=== PATIENT | female | born 1965 | race Asian ===

== ENCOUNTER → 2019-12-25 | Day surgery (SDC) | payer OTHER ==
[~2019-12-25] MED LIST: ALPR0.5T PO; DULO30CA2 PO; IV RINGERS,LACTATED 1000ML 1,000 ML IV SCH; MELA1TAB9 PO; TAMO20TA PO; ZOLP3.5T2 SL
[2019-12-25 13:48] VITALS: BP 115/71
== END | disposition home or self-care (01) ==
LOC: ENDOS 12:25
PROVIDERS: ATTEND Internal Medicine Gastroenterology
DX: R13.10 Dysphagia, unspecified (principal); K22.2 Esophageal obstruction; K29.50 Unspecified chronic gastritis without bleeding; F41.9 Anxiety disorder, unspecified; K21.9 Gastro-esophageal reflux disease without esophagitis; F32.9 Major depressive disorder, single episode, unspecified; Z72.0 Tobacco use; Z85.3 Personal history of malignant neoplasm of breast
CPT/HCPCS: 43235; 43450

== ENCOUNTER → 2020-01-12 | Outpatient (CLI) | payer OTHER ==
[2019-12-25 13:48] VITALS: BP 115/71
[~2020-01-12] MED LIST changes: -IV RINGERS,LACTATED 1000ML 1,000 ML IV SCH
--- NOTE | 2020-01-12 13:04 | KCIC ---
EXAM: Dual energy x-ray absorptiometry (DEXA). HISTORY: Postmenopausal female presents for osteoporosis screening. COMPARISON: None. TECHNIQUE: Dual energy x-ray absorptiometry of the lumbar spine and left hip was performed. Calculation of bone mineral density based on standard deviations above or below the expected young adult normal value (T-score) was completed. FINDINGS: The average bone mineral density in the 1st through 4th lumbar vertebrae is 1.097 g/cmxcm, corresponding with a T-score of 0.5. The average total bone mineral density in the left is 0.792 g/cmxcm, corresponding with a T-score of -1.2. IMPRESSION: 1. Normal bone mineral density measured at the lumbar spine. 2. Osteopenia measured at the left hip. Note: Definitions established by the World Health Organization: 1. Normal: T-score is -1.0 or above. 2. Osteopenia: T-score is between -1.0 and -2.5 . 3. Osteoporosis: T-score is -2.5 or below. Electronically signed by: Bianca Flores MD (01/12/2020 1:00 PM) [id number]
== END | disposition home or self-care (01) ==
LOC: KCIC DEXA 11:10
PROVIDERS: ATTEND Internal Medicine Hematology & Oncology
DX: Z13.820 Encounter for screening for osteoporosis (principal); M85.88 Other specified disorders of bone density and structure, other site
CPT/HCPCS: 77080

== ENCOUNTER → 2020-01-27 | Outpatient (CLI) | payer OTHER ==
[2019-12-25 13:48] VITALS: BP 115/71
[~2020-01-27] VITALS: Ht 167.6 cm; Wt 62.6 kg
[2020-01-27] MEDS: SINCALIDE 1.25 MCG in IV NORMAL SALINE 50ML 30 ML IV ONE (12:26)
--- NOTE | 2020-01-27 12:59 | RAD ---
EXAM: Nuclear hepatobiliary scan. HISTORY: Epigastric pain. TECHNIQUE: Following intravenous administration of 5.5 mCi Tc 99m Choletec, anterior images of the abdomen were obtained at five minute intervals through one hour. Subsequently, 1.25 mcg CCK was administered and additional images to assess gallbladder ejection fraction were obtained. FINDINGS: There is prompt radiotracer uptake by the liver. No focal defect is seen. There is normal excretion into the biliary tree. The gallbladder is visualized within 20 minutes and there is free flow into the duodenum. The gallbladder ejection fraction is 49 percent. IMPRESSION: 1. Normal gallbladder ejection fraction. 2. Note is made that the patient reported subjective pain during medication administration for assessment of gallbladder contraction. Electronically signed by: Bianca Flores MD (01/27/2020 12:56 PM) [id number]
--- NOTE | 2020-01-27 14:43 | RAD ---
ABDOMEN LTD: 01/27/2020 10:00 AM Indication: 54 years old Female. Epigastric pain. Comparison: None. TECHNIQUE: Sonographic evaluation of the right upper quadrant was performed utilizing grayscale and color Doppler imaging. FINDINGS: Liver: Homogenous normal echotexture.. There is hepatopedal flow within the portal venous system. Right hepatic lobe measures 14.9 cm. Biliary system: CBD measures 8.4 mm. There is no intrahepatic or extrahepatic biliary dilatation. Gallbladder: No gallstones, wall thickening or pericholecystic fluid. . Sonographic Blanchard sign: Negative Pancreas: Visualized head and uncinate process are unremarkable. Body and tail are not visualized. Right kidney: 17.8 x 4.4 x 4.9 17.8 x 4.4 x 4.9 cm. No hydronephrosis. Normal echotexture without focal mass or renal calculus. Free fluid:None. Proximal aorta measures 2.3 cm mid aorta measures 2.2 cm. Distal aorta measures 1.17. IMPRESSION: No cholelithiasis. Prominent common bile duct measures up to 8.4 mm. Correlate with hepatobiliary enzymes and if elevated, MRCP may be of benefit. Electronically signed by: Abbi Garcia MD (01/27/2020 2:40 PM) [id number]
== END ==
LOC: US 09:30
PROVIDERS: ATTEND Internal Medicine Gastroenterology
DX: R10.13 Epigastric pain (principal)
CPT/HCPCS: 76705; 78227; A9537; J2805

== ENCOUNTER → 2020-03-30 | Outpatient (CLI) | payer OTHER ==
[2019-12-25 13:48] VITALS: BP 115/71
[2020-03-30 10:45] LABS: BASO % 1 % (0-3); EOS # 0.1 x10^3/uL (0.0-0.7); EOS % 3 % (0-3); HEMATOCRIT 39.2 % (36.0-47.0); HEMOGLOBIN 13.3 g/dL (12.0-15.5); LYMPH # 1.3 x10^3/uL (1.0-4.8); LYMPH % 40 % (24-48); MEAN CORPUSCULAR HEMOGLOBIN 30 pg (25-35); MEAN CORPUSCULAR HGB CONC 34 g/dL (31-37); MEAN CORPUSCULAR VOLUME 89 fL (79-100); MONO # 0.3 x10^3/uL (0.0-1.1); MONO % 10 % (0-9); NEUT # 1.5 x10^3/uL (1.8-7.7); NEUT % 46 % (31-73); PLATELET COUNT 196 x10^3/uL (140-400); RED BLOOD COUNT 4.38 x10^6/uL (3.50-5.40); RED CELL DISTRIBUTION WIDTH 12.2 % (11.5-14.5); WHITE BLOOD COUNT 3.3 x10^3/uL (4.0-11.0)
[2020-03-30 10:54] LABS: ALBUMIN 3.5 g/dL (3.4-5.0); CREATININE 0.5 mg/dL (0.6-1.0); GFR 129.6; POTASSIUM 4.4 mmol/L (3.5-5.1); TOTAL BILIRUBIN 0.3 mg/dL (0.2-1.0)
== END | disposition home or self-care (01) ==
LOC: LAB 10:18
PROVIDERS: ATTEND Internal Medicine Hematology & Oncology
DX: C50.311 Malignant neoplasm of lower-inner quadrant of right female breast (principal); Z17.0 Estrogen receptor positive status [ER+]
CPT/HCPCS: 36415; 80053; 85025

== ENCOUNTER → 2020-04-19 | Outpatient (CLI) | payer OTHER ==
[2019-12-25 13:48] VITALS: BP 115/71
[2020-04-19 12:34] LABS: ALBUMIN 3.9 g/dL (3.4-5.0); ALBUMIN/GLOBULIN RATIO 1.2 (1.0-1.7); CALCIUM 9.1 mg/dL (8.5-10.1); CREATININE 0.6 mg/dL (0.6-1.0); POTASSIUM 4.2 mmol/L (3.5-5.1); TOTAL BILIRUBIN 0.4 mg/dL (0.2-1.0); TOTAL PROTEIN 7.2 g/dL (6.4-8.2)
== END | disposition home or self-care (01) ==
LOC: LAB 11:25
DX: C50.311 Malignant neoplasm of lower-inner quadrant of right female breast (principal); Z17.0 Estrogen receptor positive status [ER+]
CPT/HCPCS: 36415; 80053

== ENCOUNTER → 2020-06-04 | Outpatient (CLI) | payer OTHER ==
[2019-12-25 13:48] VITALS: BP 115/71
--- NOTE | 2020-06-04 14:08 | KCIC ---
EXAM: AP and lateral views of the mandible DATE: 06/04/2020 12:00 AM CLINICAL INDICATION: Reason: LEFT JAW PAIN / Spl. Instructions: Chronic pain. / History: COMPARISON: None. FINDINGS: Temporomandibular joint spaces are intact. No erosive changes are identified. There is normal morphology of the glenoid fossa and the condyles. There is no acute fracture. Paranasal sinuses are aerated without fluid levels. Of note open and closed views were not obtained. IMPRESSION: No definite mandibular fractures identified. If there is persistent clinical concern for mandibular pathology, CT is recommended. Electronically signed by: Gildardo Cole MD (06/04/2020 2:05 PM) [id number]
== END | disposition home or self-care (01) ==
LOC: KCIC 09:20
PROVIDERS: ATTEND Family Medicine
DX: R68.84 Jaw pain (principal)
CPT/HCPCS: 70110

== ENCOUNTER → 2020-07-27 | Outpatient (CLI) | payer OTHER ==
[2019-12-25 13:48] VITALS: BP 115/71
[2020-07-27 10:36] LABS: BASO % 1 % (0-3); EOS # 0.1 x10^3/uL (0.0-0.7); EOS % 3 % (0-3); HEMATOCRIT 38.1 % (36.0-47.0); HEMOGLOBIN 13.3 g/dL (12.0-15.5); LYMPH # 1.2 x10^3/uL (1.0-4.8); LYMPH % 37 % (24-48); MEAN CORPUSCULAR HEMOGLOBIN 31 pg (25-35); MEAN CORPUSCULAR HGB CONC 35 g/dL (31-37); MEAN CORPUSCULAR VOLUME 88 fL (79-100); MONO # 0.3 x10^3/uL (0.0-1.1); MONO % 9 % (0-9); NEUT # 1.7 x10^3/uL (1.8-7.7); NEUT % 51 % (31-73); PLATELET COUNT 199 x10^3/uL (140-400); RED BLOOD COUNT 4.34 x10^6/uL (3.50-5.40); RED CELL DISTRIBUTION WIDTH 12.2 % (11.5-14.5); WHITE BLOOD COUNT 3.3 x10^3/uL (4.0-11.0)
[2020-07-27 11:02] LABS: ALBUMIN 3.8 g/dL (3.4-5.0); CALCIUM 9.2 mg/dL (8.5-10.1); CREATININE 0.6 mg/dL (0.6-1.0); POTASSIUM 4.2 mmol/L (3.5-5.1); TOTAL BILIRUBIN 0.5 mg/dL (0.2-1.0); TOTAL PROTEIN 7.6 g/dL (6.4-8.2)
== END | disposition home or self-care (01) ==
LOC: LAB 10:02
PROVIDERS: ATTEND Internal Medicine Hematology & Oncology
DX: C50.311 Malignant neoplasm of lower-inner quadrant of right female breast (principal); Z17.0 Estrogen receptor positive status [ER+]
CPT/HCPCS: 36415; 80053; 85025

== ENCOUNTER → 2020-07-30 | Outpatient (CLI) | payer OTHER ==
[2019-12-25 13:48] VITALS: BP 115/71
== END | disposition home or self-care (01) ==
LOC: ONCLAB 11:07
PROVIDERS: ATTEND Internal Medicine Hematology & Oncology
DX: C50.311 Malignant neoplasm of lower-inner quadrant of right female breast (principal)
CPT/HCPCS: 36415; 82670

== ENCOUNTER 2020-11-01 12:21 | Emergency (ER) | payer OTHER ==
[~2020-11-01] VITALS: Ht 167.6 cm; Wt 63.0 kg
--- NOTE | 2020-11-01 13:35 | RAD ---
EXAM: Chest, single view. HISTORY: Cough. Shortness of air. COMPARISON: None. FINDINGS: A frontal view of the chest is obtained. There is lingular and left lower lobe atelectasis, infiltrate or scarring. There is left apical pleural thickening likely due to scarring. There are duval rgical clips overlying the chest. The heart is normal in size. There is no pleural effusion or pneumo thorax. IMPRESSION: 1. Lingular and left lower lobe atelectasis, infiltrate or scarring. 2. Left apical pleural thickening likely due to scarring. 3. No consolidated pneumonia. Electronically signed by: Bianca Flores MD (11/01/2020 1:33 PM) [id number]
--- NOTE | 2020-11-01 14:50 | EKG ---
[facility] [address] [place] [address] Test Date: 2020-11-01 Test Time: 14:01:36 Pat Name: ZACK MOYA Department: Room: Gender: F Overweaver: : 1965 Requested By: EMILY JESSICA Order Number: [id number] Reading MD: Measurements Intervals [place] Rate: 88 P: 65 DC: 154 QRS: 44 QRSD: 76 T: 43 QT: 354 QTc: 432 Interpretive Statements SINUS RHYTHM LEFT ATRIAL ABNORMALITY ABNORMAL ECG RI6.02 No previous ECG available for comparison
--- NOTE | 2020-11-01 15:13 | PHYS DOC ---
Past Medical History Past Medical History: Other Additional Past Medical Histor: BREAST CA, BILAT MASTECT, IMSOMNIA Past Surgical History: Other Smoking Status: Never Smoker Alcohol Use: None General Adult EDM: Chief Complaint: SHORTNESS OF BREATH HPI: HPI: 55-year-old female past medical history significant for stage III breast cancer status post chemo, radiation and double vasectomy with reconstructive surgery, presents the ED with complaints of worsening shortness of breath for the past 3 weeks with associated chest wall tenderness, was seen at [facility] 4 weeks ago for this and started on anticoagulation. No prior history of asthma or lung disease. Is not a tobacco smoker. Reports her oncologist who initially treated her for breast cancer told her to follow-up in December 2019. Due to insurance changes she cannot follow-up with that physician and recently started care with Dr. Vásquez who saw her for these sxs, told her she had pleurisy, and to take ibuprofen, "it did not make it go away, I feel like I can't cetch my breath." Patient was also seen at [facility] on October 28 for the symptoms. I reviewed her care and patient had a CTA of the chest that showed no pulmonary embolus. Her D-dimer was 1.08. Physician prescribed her Eliquis for 10 days and to have her follow-up with her primary care physician. PCP saw patient and told her to follow-up with the initial prescriber. Patient was unable to afford the Eliquis and was prescribed Coumadin 5 mg tablets, 1 tablet daily for 10 days. Patient has taken a total of 3 tablets. Patient does not for any sudden or worsening chest pain, cough, hemoptysis, leg swelling or exercise fatigue. Sxs have been progressive and chronic. Patient also completed a Z-Guy. History has been challenging due to Divehi not being her first language. Pt later reports she's had episodes where her chest feel "so tight" and she can't get air in (but does not have these symptoms currently). Review of Systems: Review of Systems: Constitutional: Denies fever or chills. [] Eyes: Denies change in visual acuity. [] HENT: Denies nasal congestion or sore throat. [] Respiratory: Denies increased work of breathing or hemoptysis Cardiovascular: Denies syncope or edema. [] GI: Denies abdominal pain, nausea, vomiting, bloody stools or diarrhea. [] : Denies dysuria or dysuria Musculoskeletal: Denies back pain or joint pain, or unilateral leg swelling Integument: Denies rash or diaphoresis Neurologic: Denies headache, focal weakness or sensory changes. [] Endocrine: Denies polyuria or polydipsia. [] Lymphatic: Denies swollen glands. [] Psychiatric: Denies depression or anxiety. [] Heart Score: Risk Factors: Risk Factors: DM, Current or recent (<one month) smoker, HTN, HLP, family history of CAD, obesity. Risk Scores: Score 0 - 3: 2.5% MACE over next 6 weeks - Discharge Home Score 4 - 6: 20.3% MACE over next 6 weeks - Admit for Clinical Observation Score 7 - 10: 72.7% MACE over next 6 weeks - Early Invasive Strategies Allergies: Allergies: Allergies Coded Allergies Type Severity Reaction Last Updated Verified No Known Drug Allergies 12/25/19 No Physical Exam: PE: Constitutional: Well developed, well nourished, no acute distress, non-toxic appearance. HENT: Normocephalic, atraumatic, Eyes: EOMI, conjunctiva normal, no discharge. Neck: Normal range of motion, supple, Cardiovascular: S1/2 present, regular rhythm, HR 100-105 when anxious, when calm in 80s Lungs & Thorax: Speaking in full sentences, bilateral equal chest rise, no tachypnea or increased work of breathing, 99-100% RA, clear breath sounds bilaterally with no wheezing rales or crackles Abdomen: soft, no tenderness, Skin: Warm, dry, no erythema, no rash. [] Extremities: No tenderness, no LE edema Neurologic: Alert and oriented X 3, normal motor function, normal sensory function, no focal deficits noted. [] Psychologic: Affect normal, judgement normal, mood -very anxious about Covid Current Patient Data: Vital Signs: Vital Signs Date Time Temp Pulse Resp B/P (MAP) Pulse Ox O2 Delivery O2 Flow Rate FiO2 11/01/20 12:43 97.6 105 20 142/87 (105) 99 Room Air 97.6 EKG: EKG: Sinus rhythm 88 bpm, no axis deviation, normal intervals, no T wave inversions, no ST elevations or ST depressions Radiology/Procedures: Radiology/Procedures: IMAGING REPORT Signed PATIENT: ZACK MOYA ACCOUNT: [id number] : 1965 LOCATION: ER AGE: 55 SEX: F EXAM STATUS: REG ER ORD. PHYSICIAN: EMILY JESSICA DO REASON: cough, soa PROCEDURE: CHEST AP ONLY EXAM: Chest, single view. HISTORY: Cough. Shortness of air. COMPARISON: None. FINDINGS: A frontal view of the chest is obtained. There is lingular and left lower lobe atelectasis, infiltrate or scarring. There is left apical pleural thickening likely due to scarring. There are surgical clips overlying the chest. The heart is normal in size. There is no pleural effusion or pneumothorax. IMPRESSION: 1. Lingular and left lower lobe atelectasis, infiltrate or scarring. 2. Left apical pleural thickening likely due to scarring. 3. No consolidated pneumonia. Electronically signed by: Bianca Guillen MD (11/01/2020 1:33 PM) [id number] DICTATED and SIGNED BY: BIANCA GUILLEN MD DATE: 11/01/20 [id number] Course & Med Decision Making: Course & Med Decision Making Pertinent Labs and Imaging studies reviewed. (See chart for details) COVID-19 CRITERIA: The patient was evaluated during the global COVID-19 pandemic, and that diagnosis was suspected/considered upon their initial presentation. Their evaluation, treatment and testing was consistent with current guidelines for patients who present with complaints or symptoms that may be related to COVID-19. Concern for chronic progressive symptoms resembling URI with pleurisy, Covid suspected vs mild asthma. Rapid antigen test negative. Lungs clear with chest x-ray showing no new consolidation. INR 1.9 after 3 tablets of 5 mg of Coumadin, there was no bridging with heparin. Patient with no history of clotting disorder this is her first time being on an anticoagulant. D-dimer l ikely due to her history of cancer. Recent CTA 4 days ago showing no pulmonary emboli. Discussed patient's care with Dr. Vásquez who also agrees pt does have some component of anxiety regarding her health. We both agreed that patient is a low probability of having aa PE 4 days after a negative PE study with a normal exam, 3 tablets of Coumadin without bridging. Patient reports her pain has been constant and she is more worried about when she goes into "respiratory distress, my chest is so tight, but not now." Asthma considered. Will DC home with Flovent and Medrol Dosepak. Patient was strongly discouraged to discontinue Coumadin. Patient very reliable and was educated/offered a repeat CTA of the chest, she declined and was happy to hear she did not need to take anymore Coumadin. Not see her PMD until the end of the month. Advised to follow-up with Fahad this week. Will discharge home with strict ED return precautions were given for syncope, hemoptysis, worsening chest pain, increased work of breathing (I explained what distress is) or oxygen saturations less than 92%. Encouraged urgent outpatient follow-up with PMD and her hematology oncologist in 24 to 48 hours. Life-threatening processes were considered but are low suspicion at this time, given history, physical exam and ED workup. Pt was educated on all prescription medications and adverse effects. All patient's questions were answered and pt was stable at time of discharge. Life/limb-threatening differential includes but is not limited to, ACS, dysrhythmia, pneumothorax or hemothorax, pulmonary embolus, pneumonia, bronchoconstriction, pulmonary edema, angioedema, epiglottitis, tracheitis, Santy's angina, RPA/EXTRUSION PRESS OPERATOR, anaphylaxis, angioedema, cardiac tamponade or murmurs, pericarditis, myocarditis, poisoning or toxicity, sepsis or autoimmune/neurologic disease. I spoken with the patient and her caregivers. I explained the patient's condition, diagnoses and treatment plan based on the information available to me at this time. I have answered the patient and her caregiver's questions and addressed any concerns. The patient and her caregivers have a good understand ing of patient's diagnosis, condition and treatment plan as can be expected at this point. Vital signs have been stable. Patient's condition is stable and appropriate for discharge from the emergency department. Patient will pursue further outpatient evaluation with primary care physician or other designated or consulting physician as outlined in the discharge instructions. The patient and/or caregivers are agreeable to this plan of care and follow-up instructions have been explained in detail. The patient and/or caregivers have received these instructions in written form and have expressed an understanding of the discharge instructions. The patient and/or caregivers are aware that any significant change of condition or worsening of symptoms should prompt immediate return to this or the closest emergency department or call to 911. Saúl Disclaimer: Saúl Disclaimer: This electronic medical record was generated, in whole or in part, using a voice recognition dictation system. Departure Departure Impression: Primary Impression: Person under investigation for COVID-19 Additional Impression: Dyspnea Disposition: 01 DC HOME SELF CARE/HOMELESS Condition: STABLE Referrals: BUTCH ISAAC MD (PCP) Patient Instructions: Asthma Attacks, Prevention, Shortness of Breath Additional Instructions: You have been tested for or diagnosed with COVID-19. It is an infection caused by a new type of coronavirus. COVID-19 will cause cold-like or mild flu symptoms in most. It can cause more severe symptoms like problems breathing in some. There is no treatment for COVID-19. The body will clear the infection over time. Self-care will help to ease discomfort. Steps to Take: Self-Care Rest as needed. Healthy habits may help you feel better. Steps include: Choose healthy foods including fruits and vegetables. Drink water throughout the day. Get plenty of sleep each night. If you smoke, try to quit. It may ease breathing. Avoid alcohol. Keep Others Healthy The virus can spread to others. Droplets are released every time you sneeze or cough. The droplets can get into the mouth, nose, or eyes of people near you and lead to infection. To lower the chances of spreading COVID-19 to others: Stay at home until your doctor has said it is safe to leave. If you tested positive this will mean staying isolated until both of the following are true: At least 7 days have passed since the start of illness. You are free of fever for at least 72 hours without the use of medicine. During this time: - Avoid public areas, events, or transportation. Do not return to work or school until your doctor has said it is safe to do so. - Call ahead if you need to go to a medical center. Let them know you may have COVID-19. It will help them guide you where to go. They may also ask you to wear a facemask when you come to the office. - If you call for emergency medical services, let them know you may have COVID- 19. While at home: - Try to avoid close contact with others. Stay about 6 feet away. - If possible, spend most of your time in a separate room from others. - Use a face mask if you will be in close contact with others such as sharing a room or vehicle. - Have someone wipe down common surfaces in the home. Use household fibre cement moulder every day on areas like doorknobs, counters, or sinks. - Cough or sneeze into a tissue. Throw the tissue away right after use. If a tissue is not available, cough or sneeze into your elbow. - Wash your hands often. Wash them after sneezing or coughing. Use soap and water and wash for at least 20 seconds. Alcohol based hand basting cleaner can be used if soap and water is not available. - Do not prepare food for others. Avoid sharing personal items like forks, spoons, or toothbrushes. - Avoid close contact with pets while you are sick. There is no evidence of the virus passing to pets. This is a safety step until more is known about this virus. Isolation can be frustrating. Social interaction can help. Keep in touch with friends and family through phone and tech options. You can still interact with others in your home, just keep a safe distance of about 6 feet. Follow-up: Your doctors office will check in with you to see if there are any changes in your health. You may be asked to keep track of symptoms to share with them. They will also let you know when you are clear to be in public again. Problems to Look Out For: Contact your doctor if your recovery is not going as you expect. Get emergency care if you have problems such as: - Trouble breathing - Nonstop chest pain or pressure - Changes in awareness, confusion, or problems waking - Lips or face have bluish color - Worsening of symptoms If you think you have an emergency, call for emergency medical services right away. As taken from [facility] Script[facility] Methylprednisolone (MEDROL) 4 Mg Tab.ds.pk 1 PKG PO UD for inflammation, #1 PKG Prov: EMILY JESSICA DO 11/01/20 Albuterol Sulfate (VENTOLIN HFA INHALER) 18 Gm Hfa.aer.ad 2 PUFF INH QID for shortness of breath, #1 INHALER 0 Refills Prov: EMILY JESSICA DO 11/01/20 EMILY JESSICA DO Nov 01, 2020 15:13
[2020-11-01 15:34] LABS: PROTHROMBIN TIME PATIENT 21.4 SEC (11.7-14.0)
[2020-11-01 16:22] VITALS: BP 121/73
[2020-11-01] MEDS ORDERED: METH4TAB2 PO (16:44)
[2020-11-01] MEDS ORDERED: VENTOLIN HFA18 GM INH (16:44)
--- NOTE | 2020-11-03 12:45 | NUR ---
IP: Informed pt of negative COVID test. Pt verbalized understanding.
== END 2020-11-01 17:09 | disposition home or self-care (01) ==
LOC: ER 12:21
DX: R06.00 Dyspnea, unspecified (principal); Z20.828 Contact with and (suspected) exposure to other viral communicable diseases; R07.89 Other chest pain; Z85.3 Personal history of malignant neoplasm of breast; Z98.890 Other specified postprocedural states
CPT/HCPCS: 36415; 71045; 85610; 87426; 93005; 99285; C9803; U0003

== ENCOUNTER → 2020-12-20 | Outpatient (CLI) | payer OTHER ==
[~2020-12-20] MED LIST changes: +ACET325T9 PO; +ANAS1TAB47 PO; +ESOM40CA PO; +MELA1TAB44 PO; -MELA1TAB9 PO; +METH4TAB2 PO; +ONDA4TAB12 PO; +TRAM50TA PO; +VENTOLIN HFA18 GM INH; +ZOLP5TAB5 PO
--- NOTE | 2020-12-21 10:05 | KCIC ---
PQRS Compliance Statement: One or more of the following individualized dose reduction techniques were utilized for this examinat ion: 1. Automated exposure control 2. Adjustment of the mA and/or kV according to patient size 3. Use of iterative reconstruction technique CT THORAX WO Clinical Indication: Reason: Ground glass opacties seen on recent CTs-follow up / Comparison: CT PE, November 17, 2020. TECHNIQUE: Helical CT imaging of the chest is performed without IV contrast. Findings: Enlarged left thyroid, unchanged. Right axillary surgical clips. Probable bilateral mastectomy. Canno t accurately evaluate the abe without IV contrast. Mediastinal lymph nodes are probably stable. Grea t vessels are stable. Cardiac size normal, no pericardial effusion. There is trace right pleural effusion. Right apical scarring is stable. Small consolidation of the an terior right lung is probably radiation fibrosis. Peripheral groundglass opacities in the left lung a re mildly improved. Groundglass opacities in the basilar right lower lobe have resolved. The visualized upper abdomen is unremarkable. Thoracic spine alignment is maintained. IMPRESSION: 1. Peripheral groundglass opacities of the left lower lobe are mildly improved, etiology may be infe ctious/inflammatory. Groundglass opacities of the basilar right lower lobe have resolved. 2. Trace right pleural effusion. 3. Stable scarring in the anterior right lung. 4. Mediastinal lymph nodes are stable. 5. Unchanged enlarged left thyroid. Electronically signed by: Pelon Courtney MD (12/21/2020 10:02 AM) [id number]
== END ==
LOC: KCIC CT 10:25
PROVIDERS: ATTEND Internal Medicine Pulmonary Disease
DX: J98.4 Other disorders of lung (principal); E04.9 Nontoxic goiter, unspecified; R91.8 Other nonspecific abnormal finding of lung field
CPT/HCPCS: 71250

== ENCOUNTER → 2020-12-20 | Outpatient (CLI) | payer OTHER ==
[~2020-12-20] MED LIST changes: +IOHEXOL 300 MG/ML 100ML VIAL. IV ONE
--- NOTE | 2020-12-21 10:15 | KCIC ---
PQRS Compliance Statement: One or more of the following individualized dose reduction techniques were utilized for this examinat ion: 1. Automated exposure control 2. Adjustment of the mA and/or kV according to patient size 3. Use of iterative reconstruction technique CT NECK SOFT TISSUE WITH IV CONTRAST Clinical Indication: Reason: Lymphadenopathy, Lt side, hx Rt breast CA. Hx chemo and XRT, mastectomy. Comparison: None. TECHNIQUE: Helical CT imaging of the soft tissues of the neck is performed after 95 cc of Omnipaque 3 00 IV contrast. Findings: Visualized brain unremarkable. Visualized orbits are intact. Mild mucosal thickening bilateral maxill malik sinuses. Mastoid air cells are aerated. The parapharyngeal fat planes are preserved. The parotid and submandibular glands are symmetric. The epiglottis and aryepiglottic folds and piriform sinuses are normal. The inferior left thyroid lobe is enlarged and heterogeneous. A discrete nodule is not identified. There are several subcentimeter or upper limits of normal in size lower left cervical lymph nodes. On e of the largest lymph nodes measures 9 mm short axis, image 55. Please refer to separately dictated CT chest for upper lung findings. Cervical spine alignment is maintained. IMPRESSION: 1. There are several subcentimeter or upper limits of normal in size lower left cervical lymph nodes . Recommend CT or ultrasound follow-up in 3 months. 2. Inferior left thyroid lobe is enlarged. A discrete nodule is not seen. Consider outpatient thyroi d ultrasound. Electronically signed by: Pelon Courtney MD (12/21/2020 10:13 AM) [id number]
== END ==
LOC: KCIC CT 10:13
PROVIDERS: ATTEND Family Medicine
DX: E04.9 Nontoxic goiter, unspecified (principal); R59.1 Generalized enlarged lymph nodes; J34.89 Other specified disorders of nose and nasal sinuses
CPT/HCPCS: 70491; Q9967

== ENCOUNTER → 2021-01-10 | Outpatient (CLI) | payer OTHER ==
[~2021-01-10] MED LIST changes: -ACET325T9 PO; -ANAS1TAB47 PO; -ESOM40CA PO; -IOHEXOL 300 MG/ML 100ML VIAL. IV ONE; -ONDA4TAB12 PO; -TRAM50TA PO; -ZOLP5TAB5 PO
--- NOTE | 2021-01-10 11:04 | CARD ---
MR#: [id number] Date of Study: 01/10/2021 Ordering Physician: JOSHUA HAY, Referring Physician: JOSHUA HAY, Tech: Astrid Enriquez [facility] APPROVED REPORT EXAM: Two-dimensional and M-mode echocardiogram with Doppler and color Doppler. Other Information Quality : GoodHR: 75bpm Rhythm : NSR INDICATION Dyspnea 2D DIMENSIONS RVDd2.0 (2.9-3.5cm)Left Atrium(2D)2.4 (1.6-4.0cm) IVSd0.8 (0.7-1.1cm)Aortic Root(2D)3.1 (2.0-3.7cm) LVDd4.0 (3.9-5.9cm)LVOT Diameter2.1 (1.8-2.4cm) PWd0.8 (0.7-1.1cm)LVDs2.5 (2.5-4.0cm) FS (%) 36.1 %SV45.7 ml LVEF(%)66.3 (>50%) Aortic Valve AoV Peak Anibal.126.5cm/sAoV VTI22.2cm AO Peak GR.0.0mmHgLVOT Peak Anibal.98.3cm/s AO Mean GR.3mmHgAVA (VMAX)2.58cm2 Mitral Valve MV E Seotuuzn87.2cm/sMV DECEL IOTZ129tn MV A Usomwjeq96.8cm/sE/A Ratio0.8 Pulmonary Vein S1 Ubnsjktw22.3cm/sD2 Poyswuww97.8cm/s PVa gasygdla14lerq LEFT VENTRICLE The left ventricle is normal size. There is normal left ventricular wall thickness. The left ventricu lar systolic function is normal and the ejection fraction is within normal range. EF 55% There is nor mal LV segmental wall motion. The left ventricular diastolic function and filling is normal for age. RIGHT VENTRICLE The right ventricle is normal size. There is normal right ventricular wall thickness. The right ventr icular systolic function is normal. ATRIA The left atrium size is normal. The right atrium size is normal. The interatrial septum is intact wit h no evidence for an atrial septal defect or patent foramen ovale as noted on 2-D or Doppler imaging. AORTIC VALVE The aortic valve is normal in structure and function. Doppler and Color Flow revealed no significant aortic regurgitation. There is no significant aortic valvular stenosis. MITRAL VALVE The mitral valve is normal in structure and function. There is no evidence of mitral valve prolapse. There is no mitral valve stenosis. Doppler and Color Flow revealed no mitral valve regurgitation note d. TRICUSPID VALVE The tricuspid valve is normal in structure and function. Doppler and Color Flow revealed no tricuspid valve regurgitation noted. There is no tricuspid valve stenosis. PULMONIC VALVE The pulmonary valve is normal in structure and function. Doppler and Color Flow revealed mild pulmoni c valvular regurgitation. There is no pulmonic valvular stenosis. GREAT VESSELS The aortic root is normal in size. The ascending aorta is normal in size. The IVC is normal in size a nd collapses >50% with inspiration. PERICARDIAL EFFUSION There is no evidence of significant pericardial effusion. Critical Notification Critical Value: No <Conclusion> The left ventricular systolic function is normal and the ejection fraction is within normal range. EF 55% There is normal LV segmental wall motion. Doppler and Color Flow revealed mild pulmonic valvular regurgitation. Signed by : Matias Ewing, Electronically Approved : 01/10/2021 11:04:03
--- NOTE | 2021-01-10 11:07 | RAD ---
MR#: [id number] Date of Study: 01/10/2021 Ordering Physician: JOSHUA HAY Referring Physician: IVAN SANTIAGO Tech: APPROVED REPORT Test Type: Exercise Stress Nurse/Tech: Marina Levy Test Indications: dyspnea Cardiac History: No known cardiac Medications: See Electronic Medical Record Medical History: See Electronic Medical Record Resting ECG: SR Resting Heart Rate: 84 bpm Resting Blood Pressure: 100/69mmHg Pretest Chest Pain: None Nurse/Tech Notes Lungs CTA, Pt short of breath on exertion Consent: The procedure was explained to the patient in lay terms. Informed consent was witnessed. Mario eout was entered into [employer]. History and Stress Test performed by Bianca Gonzalez RT (R) (N) Stress Symptoms Dyspnea POST EXERCISE Reason for Termination: Reached target heart rate, Dyspnea Target HR: 141 Max HR: 145 bpm 102% of Maximum Predicted HR: bpm Exercise duration: 3:03 min:sec, 2 Stage Exercise capacity: 4.6METs Max Blood Pressure: 127/74mmHg Blood Pressure response to exercise: Normal blood pressure response during stress. Heart Rate response to exercise: normal response Chest Pain: No. Arrhythmia: No. ST Change: No. INTERPRETATION Stress EKG Conclusion: No evidence of stress induced EKG changes. Conclusion 1. Normal baseline EKG 2. Below average exercise capacity with only 4.6 Mets achieved. 3. Normal stress EKG 4. Moderate risk study due to low exercise capacity but no clear evidence of ischemic EKG changes. (D uke treadmill score of 3) Signed by : Matias Ewing, Electronically Approved : 01/10/2021 11:07:42
== END ==
LOC: ECHO 08:51
PROVIDERS: ATTEND Internal Medicine Pulmonary Disease
DX: I37.1 Nonrheumatic pulmonary valve insufficiency (principal); R06.02 Shortness of breath
CPT/HCPCS: 36415; 83880; 93017; 93306

== ENCOUNTER → 2021-01-11 | Outpatient (CLI) | payer OTHER ==
--- NOTE | 2021-01-11 15:33 | KCIC ---
EXAMINATION: US THYROID, 01/11/2021 12:25 PM CLINICAL INDICATION: Thyroid nodule TECHNIQUE: Grayscale and color Doppler sonographic images of the thyroid are submitted for interpreta tion. COMPARISON: CT neck 12/20/2020. FINDINGS: The right thyroid lobe measures 4.4 x 1.3 x 1.1 cm. Left thyroid lobe measures 6.1 x 1.1 0 .2 cm. This this measures 2 mm. Nodules: Dominant nodule in the inferior left thyroid lobe measures 3.1 x 1.8 x 2.6 cm. This is predominantly solid and isoechoic, wider than tall, with smooth margins and no calcifications. TI-RADS 3, mildly duval spicious. A second nodule noted inferior left thyroid lobe measures 0.6 x 0.6 x 0.4 cm. This is solid, isoechoi c, wider than tall with smooth margins and no echogenic foci. TI-RADS 3, mildly suspicious. There are multiple abnormal lymph nodes or cystic masses in the neck, largest measuring 1.7 x 1.0 x 0 .9 cm. IMPRESSION: 1. Mildly suspicious 3.1 cm dominant solid nodule in the inferior left thyroid lobe, TI-RADS score: 3 . Recommend ultrasound-guided fine-needle aspiration (FNA). 2. There are multiple lymph nodes and a 1.7 cm cystic mass versus abnormal necrotic lymph node in the left neck. Recommend PET/CT or ultrasound guided biopsy of the cystic mass/necrotic lymph node. TI-RADS RECOMMENDATIONS: TR5 (>7 POINTS): FNA if > 1cm, follow-up if 0.5-0.9 cm TR-4 (4-6 POINTS): FNA if > 1.5 cm, follow-up if 1-1.4 cm TR-3 (3 POINTS): FNA if >2.5 cm, follow-up if 1.5-2.4 cm TR-2 (2 POINTS) AND TR-1 (0 POINTS): no FNA or follow-up Electronically signed by: Macey Robertson MD (01/11/2021 3:31 PM) [id number]
== END ==
LOC: KCIC US 12:19
PROVIDERS: ATTEND Family Medicine
DX: E04.1 Nontoxic single thyroid nodule (principal)
CPT/HCPCS: 76536

== ENCOUNTER → 2021-01-17 | Outpatient (CLI) | payer OTHER ==
[2021-01-17 12:31] LABS: BASO % 1 % (0-3); EOS # 0.1 x10^3/uL (0.0-0.7); EOS % 2 % (0-3); HEMATOCRIT 40.1 % (36.0-47.0); HEMOGLOBIN 13.5 g/dL (12.0-15.5); LYMPH # 0.9 x10^3/uL (1.0-4.8); LYMPH % 25 % (24-48); MEAN CORPUSCULAR HEMOGLOBIN 30 pg (25-35); MEAN CORPUSCULAR HGB CONC 34 g/dL (31-37); MEAN CORPUSCULAR VOLUME 88 fL (79-100); MONO # 0.4 x10^3/uL (0.0-1.1); MONO % 11 % (0-9); NEUT # 2.2 x10^3/uL (1.8-7.7); NEUT % 61 % (31-73); PLATELET COUNT 221 x10^3/uL (140-400); RED BLOOD COUNT 4.57 x10^6/uL (3.50-5.40); RED CELL DISTRIBUTION WIDTH 12.4 % (11.5-14.5); WHITE BLOOD COUNT 3.6 x10^3/uL (4.0-11.0)
== END ==
LOC: LAB 12:08
PROVIDERS: ATTEND Internal Medicine Pulmonary Disease
DX: R06.02 Shortness of breath (principal); R53.82 Chronic fatigue, unspecified
CPT/HCPCS: 36415; 84443; 85025

== ENCOUNTER 2021-01-26 07:33 | Outpatient (CLI) | payer OTHER ==
[~2021-01-26] VITALS: Ht 167.6 cm; Wt 60.3 kg
[2021-01-26] VITALS (7 sets, daily range): BP systolic 102–134; BP diastolic 66–90
[2021-01-26] MEDS ORDERED: LIDOCAINE WITH 8.4% SOD BICARB 3 ML DISP.SYRIN. ONE (08:08)
[2021-01-26] MEDS ORDERED: ANAS1TAB47 PO (08:14)
[2021-01-26] MEDS ORDERED: ACET325T9 PO (08:14)
[2021-01-26] MEDS ORDERED: ESOM40CA PO (08:14)
[2021-01-26 08:34] LABS: HEMATOCRIT 40.4 % (36.0-47.0); HEMOGLOBIN 13.2 g/dL (12.0-15.5); RED BLOOD COUNT 4.54 x10^6/uL (3.50-5.40); RED CELL DISTRIBUTION WIDTH 13.1 % (11.5-14.5); WHITE BLOOD COUNT 3.7 x10^3/uL (4.0-11.0)
[2021-01-26 08:44] LABS: PROTHROMBIN TIME PATIENT 13.3 SEC (11.7-14.0)
[2021-01-26] MEDS ORDERED: LIDOCAINE WITH 8.4% SOD BICARB 3 ML DISP.SYRIN. IJ ONE (09:15)
--- NOTE | 2021-01-26 10:12 | NUR ---
Discharge Note: SALLY MOYA Discharge instructions and discharge home medications reviewed with Patient and a copy given. All questions have been answered and understanding verbalized. The following instructions and handouts were given: biopsy after care Discontinued lines and drains: no lines or drains to discontinue. Patient discharged to Home or Self Care with[facility]
--- NOTE | 2021-01-27 08:13 | RAD ---
01/26/2021 1. Ultrasound-Guided left Thyroid FNA 2. Ultrasound-guided biopsy, abnormal supraclavicular lymph node Indication: Left-sided thyroid nodule discovered on prior ultrasound. Left supraclavicular and left basilar neck adenopathy. History of breast cancer. History of thyroid nodule. Findings: Relative benefits, risks and alternatives to the procedure were discussed and written informed consent was obtained. A timeout procedure was performed. Limited sonographic examination confirms nodule in the left lobe of the thyroid. The patient was carefully prepped and draped in a sterile fashion and with ultrasound guidance and local anesthetic, 25-gauge needles were advanced and the target nodule was sampled via capillary action. 5 passes were obtained. Manual pressure was held. Repeat ultrasound demonstrated no hematoma or other complication. Cytology was prepped by the distribution engineering technologist who was present during the exam. Next ultrasound evaluation of abnormal lymphadenopathy in the left basilar neck and supraclavicular region was performed. 1% lidocaine was administered for local anesthesia. Superficial abnormal lymph node was targeted for biopsy. 20-gauge core biopsy samples were obtained and placed in formalin and RPMI fluid. Manual pressure was held. No immediate competitions were identified on post biopsy imaging. Impression: 1. Status post ultrasound-guided thyroid FNA. 2. Status post core biopsy, lymphadenopathy, left supraclavicular/basilar neck .
--- NOTE | 2021-01-28 17:10 | PATHOLOGY ---
[facility] Accession Number: [id number] . 01 Material submitted: . neck - LEFT NECK LYMPH NODE CORE BIOPSY. Modifiers: left . 01 Clinical history: . LYMPH NODE, BIOPSY, PENDING POST-OPERATIVE DIAGNOSIS, LEFT NECK LYMPH NODE CORE BIOPSY REASON FOR VISIT - THYROID FNA LYMPH NODE FN . 02 Diagnosis: Fibroadipose tissue, left neck lymph node needle biopsies: - METASTATIC POORLY DIFFERENTIATED ADENOCARCINOMA. SEE COMMENT. (JPM:perry 01/27/2021) P 01/27/2021 0945 Local . 02 Comment: Sections of the left neck lymph node show apparent replacement by a metastatic malignant epithelial neoplasm. There are focal small segments of fibrous and adipose tissue present with no normal residual lymph node identified. The malignant cells predominantly have a solid nested appearance and are associated with a fibrotic stroma. The tumor does appear to show focal acinar formation, and some tumor cells appear to contain intracytoplasmic lumina. The tumor cells have modest amounts of eosinophilic cytoplasm, and possess enlarged pleomorphic hyperchromatic nuclei. There are mitotic figures present. . A portion of the specimen submitted for flow cytometric analysis consists primarily of degenerated/non-hematopoietic cells. The sample quantity is insufficient for flow cytometric analysis. . A panel of immunoperoxidase stains is obtained on block A1 and yields the following results: . Cytokeratin 7: Tumor cells positive. Cytokeratin 20: Tumor cells negative. TTF-1: Tumor cells negative. CDX2: Tumor cells negative. GATA3: Tumor cells positive. Mammaglobin: Few tumor cells positive. . The morphologic and immunophenotypic findings are supportive of the diagnosis of metastatic poorly differentiated adenocarcinoma consistent with breast origin. The case is also examined by Dr. Pond, who concurs with the diagnosis on 01/28/21. . (JPM:perry/refrigeration engineer/kaye 01/28/2021) . Special stains performed: CK7, CK20, TTF-1, CDX2, MALLORY-3, mammaglobin . 02 Electronically signed: . Yoseph Dennis MD, Pathologist NPI- [id number] . 01 Gross description: . The specimen is received in formalin, labeled with the patient's name and "lymph node" and consists of vinson delicate needle core fragments measuring 1.1 x 0.2 x 0.1 cm in aggregate which are entirely submitted in A1.(SDY; 01/26/2021) SYU/SYU 01/26/2021 1709 Local . 02 Pathologist provided ICD-10: C77.0 . 02 CPT . 276533, [id number], V11499 Specimen Comment: A courtesy copy of this report has been sent to [phone] Specimen Comment: [phone], Specimen Comment: Report sent to , / Performed at: 01 [facility] [address], [place] [id number] MD Garrett Pond MD Phone: [phone] Performed at: 02 [facility] [address] [place], [place] [id number] MD Yoseph Dennis MD Phone: [phone]
== END 2021-01-26 10:20 | disposition home or self-care (01) ==
LOC: INTRAD 07:33
PROVIDERS: ATTEND Otolaryngology
DX: E04.1 Nontoxic single thyroid nodule (principal); R59.9 Enlarged lymph nodes, unspecified; C77.0 Secondary and unspecified malignant neoplasm of lymph nodes of head, face and neck; K21.9 Gastro-esophageal reflux disease without esophagitis; F41.9 Anxiety disorder, unspecified; Z85.3 Personal history of malignant neoplasm of breast; Z20.822 Contact with and (suspected) exposure to COVID-19; Z79.899 Other long term (current) drug therapy; Z98.51 Tubal ligation status; Z98.890 Other specified postprocedural states
CPT/HCPCS: 10005; 36415; 38505; 76942; 85027; 85610; 87426; 88173; 88184; 88185; 88305; 88341; 88342; C9803; J3490; U0003

== ENCOUNTER → 2021-01-28 | Day surgery (SDC) | payer OTHER ==
[~2021-01-28] MED LIST changes: +ACET325T9 PO; +ANAS1TAB47 PO; +ESOM40CA PO; +IV RINGERS,LACTATED 1000ML 1,000 ML IV SCH; +LIDOCAINE 2% PF 5 ML VIAL. ONE; +PROPOFOL 10 MG/ML (20ML) VIAL. IV ONE
[2021-01-28 08:36] VITALS: BP 105/64
--- NOTE | 2021-01-31 14:07 | PATHOLOGY ---
[facility] Accession Number: [id number] . 01 Material submitted: . PART A: stomach - GASTRIC ANTRUM BIOPSY PART B: gastrointestinal site - GASTRIC BODY BIOPSY PART C: gastrointestinal site - GASTRIC FUNDUS BIOPSY. Modifiers: fundus . 01 Clinical history: . ABDOMINAL PAIN METAPLASIA EGD EPIGASTRIC PAIN, HISTORY GASTR . 02 Diagnosis: A. Gastric biopsies, antrum: - Chronic gastritis, mild to moderate, with focal intestinal metaplasia. . B. Gastric biopsies, gastric body: - Superficial congestion and slight chronic inflammation. . C. Gastric biopsies, gastric fundus: - Superficial congestion and slight chronic inflammation. . (JPM:angy; 01/31/2021) [facility] 01/31/2021 1213 Local . 02 Comment: Sections of the gastric antral biopsy reveal two segments of gastric body mucosa and two segments of gastric antral mucosa. The gastric body mucosa shows superficial congestion and slight chronic inflammation. The gastric antral mucosa shows mild to focally active moderate chronic inflammation with focal intestinal metaplasia. Properly-controlled immunoperoxidase stain for Helicobacter is negative for Helicobacter organisms. There is no dysplasia or evidence of malignancy. . Sections of the gastric body biopsy reveal segments of gastric body mucosa showing superficial congestion and slight chronic inflammation. There is no evidence of intestinal metaplasia, dysplasia or malignancy. . Sections of the gastric fundus biopsy reveal segments of gastric body mucosa showing superficial congestion and slight chronic inflammation. There is no evidence of intestinal metaplasia, dysplasia or malignancy. . Special stain: Immunoperoxidase stain for Helicobacter on A1 . (JPM:angy; 01/31/2021) . 02 Electronically signed: . Yoseph Dennis MD, Pathologist NPI- [id number] . 01 Gross description: . A. Received in formalin labeled "Adele Salomon, gastric antrum" are multiple vinson-brown soft tissue fragments measuring in aggregate 1.3 x 0.4 x 0.1 cm. The specimen is submitted entirely in A1. . B. Received in formalin labeled "Adele Salomon, gastric body BX" are multiple vinson-brown soft tissue fragments measuring in aggregate 1.5 x 0.4 x 0.1 cm. The specimen is submitted entirely in B1. . C. Received in formalin labeled "Adele Salomon, gastric fundus BX" are multiple vinson-brown soft tissue fragments measuring in aggregate 0.8 x 0.5 x 0.1 cm. The specimen is submitted entirely in C1. ([facility]; 01/30/2021) [facility] 01/30/2021 0926 Local . 02 Pathologist provided ICD-10: K29.50 . 02 CPT . 001290, 998855, 319742, T43536 Specimen Comment: A courtesy copy of this report has been sent to [phone] Specimen Comment: Report sent to Specimen Comment: A duplicate report has been generated due to demographic updates. Performed at: 01 [facility] [address] [facility] [address], [place] [id number] MD Garrett Pond MD Phone: [phone] Performed at: 02 [facility] [address] [place], [place] [id number] MD Yoseph Dennis MD Phone: [phone]
== END | disposition home or self-care (01) ==
LOC: ENDOS 07:01
PROVIDERS: ATTEND Internal Medicine Gastroenterology
DX: R10.13 Epigastric pain (principal); K29.50 Unspecified chronic gastritis without bleeding; K31.89 Other diseases of stomach and duodenum; K21.9 Gastro-esophageal reflux disease without esophagitis; F32.9 Major depressive disorder, single episode, unspecified; F41.9 Anxiety disorder, unspecified; Z79.899 Other long term (current) drug therapy; Z98.890 Other specified postprocedural states; Z85.3 Personal history of malignant neoplasm of breast
CPT/HCPCS: 43239; J2704; 88305; 88342

== ENCOUNTER → 2021-02-09 | Outpatient (CLI) | payer OTHER ==
[2021-01-28 08:36] VITALS: BP 105/64
[~2021-02-09] MED LIST changes: -IV RINGERS,LACTATED 1000ML 1,000 ML IV SCH; -LIDOCAINE 2% PF 5 ML VIAL. ONE; -PROPOFOL 10 MG/ML (20ML) VIAL. IV ONE
--- NOTE | 2021-02-09 15:37 | KCIC ---
DXA BONE DENSITY AXIAL History: Reason: PRIMARY MALIGNANT NEOPLASM OF FEMALE BREAST, HRT USE, POST MENOPAUSAL / Spl. Instruc tions: / History: Comparison: January 12, 2020 TECHNIQUE: Dual energy x-ray absorptiometry of the lumbar spine and left hip was performed. T-score o f average bone mineral density based was calculated based on standard deviations above or below the e xpected young adult normal value. Diagnostic definitions were established by the [employer] at[employer]. FINDINGS: The average bone mineral density associated with L1-L4 is 1.124 g/cm^2, corresponding with a T-score of 0.1. Decreased small bowel density compared to prior. The average total bone mineral density associated with left hip is 0.775 g/cm^2, corresponding with a T-score of -1.4. Decreased bone mineral density compared to prior. Refer to the worksheets for full detail. IMPRESSION: 1. Osteopenia. Average bone mineral density yields a T-score between -1.0 and -2.5. Fracture risk is increased. 2. Decreased bone mild density within the lumbar spine and left hip compared to prior. Electronically signed by: Blaise Keating DO (02/09/2021 3:34 PM) [id number]
== END ==
LOC: KCIC DEXA 12:27
PROVIDERS: ATTEND Internal Medicine Hematology & Oncology
DX: M85.88 Other specified disorders of bone density and structure, other site (principal); Z85.3 Personal history of malignant neoplasm of breast
CPT/HCPCS: 77080

== ENCOUNTER → 2021-02-11 | Outpatient (CLI) | payer OTHER ==
[2021-01-28 08:36] VITALS: BP 105/64
--- NOTE | 2021-02-11 18:41 | RAD ---
EXAM: NM PET/CT SKULL BASE TO MID THIGH EXAM DATE: 02/11/2021 INDICATION: Adenocarcinoma, site unspecified. Patient has had first dose of the Covid vaccine on 02/10 in the left arm and has undergone bilateral mastectomy with breast reconstruction for breast ca ncer diagnosed in 2017, treated with chemotherapy in March 2018 and radiation in August 2019. RADIOPHARMACEUTICAL: 14.9 mCi of F-18 Fluorodeoxyglucose (FDG) I.V. via the left antecubital fossa. TECHNIQUE: Patient weight: 130 pounds. Following at least four-hour fasting, the patient's blood gluc ose was 130 mg/dl. Approximately one half hours after administration of FDG, overlapping emission sc anning was performed from the orbital meatal line through the pelvis. A low-dose CT was performed fo r attenuation correction purposes and anatomic localization. Fused images of PET and CT were reviewed . Any standardized uptake values (SUV) reported are maximum values within a volume region of interes t, expressed in gm/ml. COMPARISON: CT pulmonary angiogram of 11/17/2020, CT soft tissue neck with IV contrast of 12/20/[address] chest 12/20/2020 without IV contrast. FINDINGS: PET: In the head and neck, the enlarged left level 5 cervical lymph nodes evident on prior CT show abnorma l FDG uptake to a max SUV of 9.2. Asymmetrically mildly enlarged left level 4 cervical lymph nodes al so show abnormal FDG uptake to a max SUV of 9.5. In the chest, there is extensive uptake in the mediastinal lymph nodes, including pretracheal lymph n ode uptake to max SUV of 12.4, subcarinal lymph node uptake to max SUV of 7.4. Bilateral hilar uptake is also noted to max SUV of 9.5 on the left and 6.6 on the right. In the abdomen and pelvis, extensive asymmetric uptake in the left hepatic lobe compared with the rig ht is noted, reaching a max SUV of 11.7 in hepatic segment 3, compared with a max SUV of 4.2 in hepat ic segment 6. In the skeletal system, extensive osseous FDG activity is evident, some of which is associated with o steolytic lesions. For example, an osteolytic lesion at the right C5 endplate (image 66 of series 3) now measures 8 mm compared with 5 mm previously and shows FDG uptake to max SUV of 3.9. The central o steolytic lesion at T3 previously measuring 5 mm now measures 15 mm (image 114 series 3) and shows a max SUV of 8.2. Uptake in the center of L1 to max SUV of 6.2 a be associated with a tiny, 3 mm osteol ytic lesion at the center of the vertebral body. Uptake in the posterior lateral left-sided L4 verteb ral body (image 119 of series 603) shows a max SUV of 8.0. Uptake in the left iliac bone is multifoca l with the greatest activity in a radiographically occult lesion showing a max SUV of 5.3 (image 136 of series 603) there is linear sclerosis in this area on the attenuation correction CT images (image 340 of series 3) and a stress reaction is not excluded. Additional uptake in the left and right ischi um (max SUV of 8.9 on the left) and in the inferior right pubic ramus (max SUV 6.9, image 153 of seri es 603) are noted. CT: In the head and neck, mildly enlarged left level 4 and 5 cervical lymph nodes are subtly present. The se correspond with the abnormal FDG uptake seen on PET CT same day. The largest measures 1.6 cm in lo ng axis, compared with 1.3 cm 2 months ago (image 69 series 3 this exam compared with image 54 series 2 on 12/20/[address] with IV contrast). Left thyroid lobe 2.6 cm nodule is also evident, unchanged. In the chest, bilateral mastectomy with TRAM reconstruction is again evident with subpleural scarring compatible with radiation fibrosis evident in the left upper lobe and surgical changes from right ax illary jodie dissection. A small right pleural effusion has developed in the interval. A pericardial effusion has also develop ed and is new in the interval. In greatest thickness, it measures 1.9 cm in depth and appears to dist ort the left ventricular apex. There are numerous peripheral nodular opacities in the lungs with surr ounding groundglass attenuation have continued to decrease in size and conspicuity, nearly fully reso lved. In the abdomen and pelvis, surgical changes from TRAM flap harvesting in the midline ventral abdomen is evident and there is nonspecific soft tissue stranding in the mesentery. A small amount of pelvic free fluid noted. IMPRESSION: 1. Status post previous bilateral mastectomy with evidence of extensive osseous metastases and jodie metastases in the chest and lower left neck as described. 2. 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 The clinical sig nificance of these findings is uncertain but the patient during direct contact by telephone reported a recent history of exertional dyspnea and generalized shortness of breath. I telephoned the patient at 6:00 PM on 02/11/2021 to alert her to the new imaging findings that are pertinent to her concerns r egarding exertional dyspnea and encouraged her to seek emergency help as needed. I was able to discus s these findings as well with Dr. Judy Su who was on-call for the ordering provider Dr. Radha Munoz by telephone at 6:25 PM on 02/11/2021. 3. There is asymmetric increased uptake in the left hepatic lobe compared with the right. This is pot entially a reflection of hepatic parenchymal dysfunction. Cannot exclude hepatic metastatic disease. Ultrasound, MRI or contrast enhanced CT could be considered in further evaluation if clinically warra nted. Electronically signed by: Manolo Gu MD (02/11/2021 6:38 PM) [id number]
== END ==
LOC: PETSC 10:01
PROVIDERS: ATTEND Otolaryngology
DX: C75.1 Malignant neoplasm of pituitary gland (principal); R59.9 Enlarged lymph nodes, unspecified; J90 Pleural effusion, not elsewhere classified; I31.3 Pericardial effusion (noninflammatory)
CPT/HCPCS: 78815; A9552

== ENCOUNTER 2021-02-14 10:37 | Inpatient (IN) | payer OTHER, MEDICARE ==
[~2021-02-14] VITALS: Ht 167.6 cm; Wt 62.0 kg
[2021-02-14] MEDS ORDERED: MORPHINE SULFATE 4 MG/ML VIAL. IV/SQ PRN (11:30)
[2021-02-14 12:10] LABS: BASO % 0 % (0-3); EOS % 1 % (0-3); HEMATOCRIT 43.5 % (36.0-47.0); HEMOGLOBIN 14.1 g/dL (12.0-15.5); LYMPH # 0.7 x10^3/uL (1.0-4.8); LYMPH % 18 % (24-48); MEAN CORPUSCULAR HEMOGLOBIN 29 pg (25-35); MEAN CORPUSCULAR HGB CONC 32 g/dL (31-37); MEAN CORPUSCULAR VOLUME 90 fL (79-100); MONO # 0.4 x10^3/uL (0.0-1.1); MONO % 11 % (0-9); NEUT # 2.9 x10^3/uL (1.8-7.7); NEUT % 70 % (31-73); PLATELET COUNT 132 x10^3/uL (140-400); RED BLOOD COUNT 4.84 x10^6/uL (3.50-5.40); RED CELL DISTRIBUTION WIDTH 13.9 % (11.5-14.5); WHITE BLOOD COUNT 4.1 x10^3/uL (4.0-11.0)
--- NOTE | 2021-02-14 12:14 | RAD ---
EXAM: CHEST 1 VIEW History: Shortness of breath, pericardial effusion COMPARISON: 11/01/2020. TECHNIQUE: Single portable radiograph of the chest Findings/ impression: Mild enlarged cardiac silhouette could be cardiomegaly or pericardial effusion. Mild bibasilar lung a irspace opacity likely atelectasis or infiltrates. Minimal blunting of the right costophrenic angle c ould be trace right pleural effusion.. Electronically signed by: Cesario Dawn MD (02/14/2021 12:12 PM) [id number]
[2021-02-14 12:31] LABS: CALCIUM 8.7 mg/dL (8.5-10.1); CREATININE 0.8 mg/dL (0.6-1.0); POTASSIUM 4.2 mmol/L (3.5-5.1)
[2021-02-14 12:38] LABS: ALBUMIN 2.8 g/dL (3.4-5.0); ALBUMIN/GLOBULIN RATIO 0.7 (1.0-1.7); TOTAL BILIRUBIN 1.3 mg/dL (0.2-1.0); TOTAL PROTEIN 6.7 g/dL (6.4-8.2)
--- NOTE | 2021-02-14 13:57 | EKG ---
[facility] [address] [place] [address] Test Date: 2021-02-14 Test Time: 11:46:18 Pat Name: ZACK MOYA Department: Room: Gender: F Principal Trainer: : 1965 Requested By: JALEEL COX Order Number: [id number] Reading MD: Measurements Intervals [place] Rate: 104 P: 42 NE: 126 QRS: 240 QRSD: 70 T: 69 QT: 358 QTc: 477 Interpretive Statements SINUS TACHYCARDIA LEFT ATRIAL ABNORMALITY ABNORMAL RIGHT SUPERIOR AXIS DEVIATION LOW LIMB LEAD VOLTAGE QRS(T) CONTOUR ABNORMALITY CONSISTENT WITH ANTEROSEPTAL INFARCT AGE UNDETERMINED CONSISTENT WITH INFERIOR INFARCT PROBABLY OLD T ABNORMALITY IN ANTERIOR LEADS ABNORMAL ECG RI6.02 No previous ECG available for comparison
[2021-02-14] MEDS ORDERED: ACETAMINOPHEN 325 MG TABLET. PO PRN (14:00)
[2021-02-14] MEDS ORDERED: ONDANSETRON PF 4 MG/2 ML VIAL. IV PRN (14:00)
[2021-02-14] MEDS ORDERED: MORPHINE SULFATE 2 MG/ML VIAL. IV PRN (14:00)
[2021-02-14 14:04] LABS: BILIRUBIN,URINE SMALL (NEG); CLARITY,URINE CLEAR; NITRITE,URINE NEGATIVE (NEG); PROTEIN,URINE NEGATIVE (NEG-TRACE)
--- NOTE | 2021-02-14 14:04 | PHYS DOC ---
Past Medical History Past Medical History: Other Additional Past Medical Histor: BREAST CA, BILAT MASTECT, IMSOMNIA Past Surgical History: Other Additional Past Surgical Histo: BILAT MASTECT. Smoking Status: Never Smoker Alcohol Use: None General Adult EDM: Chief Complaint: SHORTNESS OF BREATH HPI: HPI: Patient is a 55 year old female with history of breast cancer diagnosed in 2018, underwent a double mastectomy with reconstruction, had chemotherapy March 2018 as well as radiation treatment August 2019, currently on Arimidex who presents to the ED today to be evaluated and admitted for shortness of breath that she states has been going on since September 2020. Patient states she had a PET scan done 3 days ago that showed she has right pericardial effusion. Review of Systems: Review of Systems: Constitutional: Denies fever or chills. [] Eyes: Denies change in visual acuity. [] HENT: Denies nasal congestion or sore throat. [] Respiratory: Reports shortness of breath denies cough Cardiovascular: Denies chest pain or edema. [] GI: Denies abdominal pain, nausea, vomiting, bloody stools or diarrhea. [] : Denies dysuria. [] Musculoskeletal: Denies back pain or joint pain. [] Integument: Denies rash. [] Neurologic: Denies headache, focal weakness or sensory changes. [] Psychiatric: Denies depression or anxiety. [] Heart Score: C/O Chest Pain: No Risk Factors: Risk Factors: DM, Current or recent (<one month) smoker, HTN, HLP, family history of CAD, obesity. Risk Scores: Score 0 - 3: 2.5% MACE over next 6 weeks - Discharge Home Score 4 - 6: 20.3% MACE over next 6 weeks - Admit for Clinical Observation Score 7 - 10: 72.7% MACE over next 6 weeks - Early Invasive Strategies Current Medications: Current Medications Medications (Trade) Dose Ordered Sig/Tita Start Time Stop Time Status Last Admin Dose Admin Morphine Sulfate (Morphine Sulfate) 4 mg PRN Q15MIN PRN 02/14/21 11:30 02/15/21 11:29 Allergies: Allergies: Allergies Coded Allergies Type Severity Reaction Last Updated Verified No Known Drug Allergies 01/28/21 No Physical Exam: PE: Constitutional: Well developed, well nourished, no acute distress, non-toxic appearance. [] HENT: Normocephalic, atraumatic, bilateral external ears normal, oropharynx moist, no oral exudates, nose normal. [] Eyes: PERRLA, EOMI, conjunctiva normal, no discharge. [] Neck: Normal range of motion, no tenderness, supple, no stridor. [] Cardiovascular: Pericardial rub on the right. Heart rate regular rhythm, no murmur [] Lungs & Thorax: Diminished breath sounds. Abdomen: Bowel sounds normal, soft, no tenderness, no masses, no pulsatile masses. [] Skin: Warm, dry, no erythema, no rash. [] Back: No tenderness, no CVA tenderness. [] Extremities: No tenderness, no cyanosis, no clubbing, ROM intact, no edema. [] Neurologic: Alert and oriented X 3, normal motor function, normal sensory function, no focal deficits noted. [] Psychologic: Affect normal, judgement normal, mood normal. [] Current Patient Data: Labs: Laboratory Tests Test 02/14/21 11:55 White Blood Count 4.1 x10^3/uL (4.0-11.0) Red Blood Count 4.84 x10^6/uL (3.50-5.40) Hemoglobin 14.1 g/dL (12.0-15.5) Hematocrit 43.5 % (36.0-47.0) Mean Corpuscular Volume 90 fL (79-100) Mean Corpuscular Hemoglobin 29 pg (25-35) Mean Corpuscular Hemoglobin Concent 32 g/dL (31-37) Red Cell Distribution Width 13.9 % (11.5-14.5) Platelet Count 132 x10^3/uL (140-400) L Neutrophils (%) (Auto) 70 % (31-73) Lymphocytes (%) (Auto) 18 % (24-48) L Monocytes (%) (Auto) 11 % (0-9) H Eosinophils (%) (Auto) 1 % (0-3) Basophils (%) (Auto) 0 % (0-3) Neutrophils # (Auto) 2.9 x10^3/uL (1.8-7.7) Lymphocytes # (Auto) 0.7 x10^3/uL (1.0-4.8) L Monocytes # (Auto) 0.4 x10^3/uL (0.0-1.1) Eosinophils # (Auto) 0.0 x10^3/uL (0.0-0.7) Basophils # (Auto) 0.0 x10^3/uL (0.0-0.2) Prothrombin Time 14.0 SEC (11.7-14.0) Prothrombin Time INR 1.1 (0.8-1.1) Activated Partial Thromboplast Time 38 SEC (24-38) Sodium Level 140 mmol/L (136-145) Potassium Level 4.2 mmol/L (3.5-5.1) Chloride Level 106 mmol/L (98-107) Carbon Dioxide Level 24 mmol/L (21-32) Anion Gap 10 (6-14) Blood Urea Nitrogen 13 mg/dL (7-20) Creatinine 0.8 mg/dL (0.6-1.0) Estimated GFR (Cockcroft-Gault) 75.0 BUN/Creatinine Ratio 16 (6-20) Glucose Level 192 mg/dL (70-99) H Lactic Acid Level 2.5 mmol/L (0.4-2.0) H Calcium Level 8.7 mg/dL (8.5-10.1) Magnesium Level 2.0 mg/dL (1.8-2.4) Total Bilirubin 1.3 mg/dL (0.2-1.0) H Aspartate Amino Transferase (AST) 259 U/L (15-37) H Alanine Aminotransferase (ALT) 205 U/L (14-59) H Alkaline Phosphatase 421 U/L (46-116) H Creatine Kinase 83 U/L (26-192) Creatine Kinase MB (Mass) 3.6 ng/mL (0.0-3.6) Creatine Kinase MB Relative Index 4.3 % (0-4) H Troponin I Quantitative 0.110 ng/mL (0.000-0.055) VD-Hcj-H-Type Natriuretic Peptide 1362 pg/mL (0-124) H Total Protein 6.7 g/dL (6.4-8.2) Albumin 2.8 g/dL (3.4-5.0) L Albumin/Globulin Ratio 0.7 (1.0-1.7) L Procalcitonin 0.12 ng/mL (0.00-0.10) H Thyroid Stimulating Hormone (TSH) 1.369 uIU/mL (0.358-3.74) Laboratory Tests 02/14/21 11:55 Laboratory Tests 02/14/21 11:55 Vital Signs: Vital Signs Date Time Temp Pulse Resp B/P (MAP) Pulse Ox O2 Delivery O2 Flow Rate FiO2 02/14/21 10:39 97.2 111 20 101/71 (81) 92 Room Air 97.2 EKG: EK interpreted by DR. Santana sinus tachycardia, heart rate 104 no STEMI [] Radiology/Procedures: Radiology/Procedures: []PROCEDURE: PORTABLE CHEST 1V EXAM: CHEST 1 VIEW History: Shortness of breath, pericardial effusion COMPARISON: 11/01/2020. TECHNIQUE: Single portable radiograph of the chest Findings/ impression: Mild enlarged cardiac silhouette could be cardiomegaly or pericardial effusion. Mild bibasilar lung airspace opacity likely atelectasis or infiltrates. Minimal blunting of the right costophrenic angle could be trace right pleural effusion.. Electronically signed by: Cesario Dawn MD (02/14/2021 12:12 PM) [id number] DICTATED and SIGNED BY: CESARIO DAWN MD DATE: 02/14/21 [id number] 0 Course & Med Decision Making: Course & Med Decision Making Pertinent Labs and Imaging studies reviewed. (See chart for details) This is a 55-year-old female patient with history of breast cancer with metastasis to the bones and jodie metastasis to the chest and left lower neck who presents to the ED today complaining of shortness of breath that has been going on since September 2020. Patient had a PET scan done 3 days ago that showed she has pericardial effusion, she is being sent to the ED to be admitted. Spoke with Dr. Canada who accepted patient for admission Spoke to [place] [facility] VILLAFUERTE for cardiology who ordered an echocardiogram. Saúl Disclaimer: Dragkaren Disclaimer: This electronic medical record was generated, in whole or in part, using a voice recognition dictation system. Departure Departure Impression: Primary Impression: Pericardial effusion, acute Additional Impressions: Shortness of breath Tachycardia Disposition: ADMITTED INPT THIS HOSP Condition: STABLE Referrals: BUTCH ISAAC MD (PCP) JALEEL COX APRN Feb 14, 2021 14:04
[2021-02-14 14:10] LABS: COLOR,URINE DK YELLOW
[2021-02-14 14:12] LABS: BACTERIA,URINE FEW /HPF (0-FEW); RBC,URINE 0 /HPF (0-2); WBC,URINE RARE /HPF (0-4)
[2021-02-14 15:00] VITALS: BP 113/84
--- NOTE | 2021-02-14 15:03 | PDOC2 ---
JUANITOCESILIA BARNHART RONALDO 02/14/21 1503: CARDIAC CONSULT DATE OF CONSULT Date of Consult DATE: 02/14/21 TIME: 14:44 REASON FOR CONSULT Reason for Consult: pericardial effusion REFERRING PHYSICIAN Referring Physician: Sharon Wallace APRN SOURCE Source: Chart review, Patient HISTORY OF PRESENT ILLNESS HISTORY OF PRESENT ILLNESS This is a 55 yo female, with a history of breast CA, who presented secondary to shortness of breath and pericardial effusion that was noted on routine PET scan 3 days ago. PAST MEDICAL HISTORY GI: GERD, Peptic Ulcer disease Heme/Onc: Cancer (breast CA) Psych: Anxiety PAST SURGICAL HISTORY Past Surgical History: Tubal Ligation SOCIAL HISTORY Smoke: No ALCOHOL: none Drugs: None Lives: with Family ALLERGIES ALLERGIES: Coded Allergies: No Known Drug Allergies (Unverified , 01/28/21) ROS Review of System 14 point ROS conducted with pertinent positives noted above in HPI. VITALS/I&O VITALS/I&O: Vital Signs Date Time Temp Pulse Resp B/P (MAP) Pulse Ox O2 Delivery O2 Flow Rate FiO2 02/14/21 10:39 97.2 111 20 101/71 (81) 92 Room Air 97.2 LABS Lab: Laboratory Tests Test 02/14/21 11:55 02/14/21 13:55 White Blood Count 4.1 x10^3/uL (4.0-11.0) Red Blood Count 4.84 x10^6/uL (3.50-5.40) Hemoglobin 14.1 g/dL (12.0-15.5) Hematocrit 43.5 % (36.0-47.0) Mean Corpuscular Volume 90 fL (79-100) Mean Corpuscular Hemoglobin 29 pg (25-35) Mean Corpuscular Hemoglobin Concent 32 g/dL (31-37) Red Cell Distribution Width 13.9 % (11.5-14.5) Platelet Count 132 x10^3/uL (140-400) L Neutrophils (%) (Auto) 70 % (31-73) Lymphocytes (%) (Auto) 18 % (24-48) L Monocytes (%) (Auto) 11 % (0-9) H Eosinophils (%) (Auto) 1 % (0-3) Basophils (%) (Auto) 0 % (0-3) Neutrophils # (Auto) 2.9 x10^3/uL (1.8-7.7) Lymphocytes # (Auto) 0.7 x10^3/uL (1.0-4.8) L Monocytes # (Auto) 0.4 x10^3/uL (0.0-1.1) Eosinophils # (Auto) 0.0 x10^3/uL (0.0-0.7) Basophils # (Auto) 0.0 x10^3/uL (0.0-0.2) Prothrombin Time 14.0 SEC (11.7-14.0) Prothrombin Time INR 1.1 (0.8-1.1) Activated Partial Thromboplast Time 38 SEC (24-38) Sodium Level 140 mmol/L (136-145) Potassium Level 4.2 mmol/L (3.5-5.1) Chloride Level 106 mmol/L (98-107) Carbon Dioxide Level 24 mmol/L (21-32) Anion Gap 10 (6-14) Blood Urea Nitrogen 13 mg/dL (7-20) Creatinine 0.8 mg/dL (0.6-1.0) Estimated GFR (Cockcroft-Gault) 75.0 BUN/Creatinine Ratio 16 (6-20) Glucose Level 192 mg/dL (70-99) H Lactic Acid Level 2.5 mmol/L (0.4-2.0) H Calcium Level 8.7 mg/dL (8.5-10.1) Magnesium Level 2.0 mg/dL (1.8-2.4) Total Bilirubin 1.3 mg/dL (0.2-1.0) H Aspartate Amino Transferase (AST) 259 U/L (15-37) H Alanine Aminotransferase (ALT) 205 U/L (14-59) H Alkaline Phosphatase 421 U/L (46-116) H Creatine Kinase 83 U/L (26-192) Creatine Kinase MB (Mass) 3.6 ng/mL (0.0-3.6) Creatine Kinase MB Relative Index 4.3 % (0-4) H Troponin I Quantitative 0.110 ng/mL (0.000-0.055) YS-Hcy-G-Type Natriuretic Peptide 1362 pg/mL (0-124) H Total Protein 6.7 g/dL (6.4-8.2) Albumin 2.8 g/dL (3.4-5.0) L Albumin/Globulin Ratio 0.7 (1.0-1.7) L Procalcitonin 0.12 ng/mL (0.00-0.10) H Thyroid Stimulating Hormone (TSH) 1.369 uIU/mL (0.358-3.74) Urine Collection Type Unknown Urine Color Dk yellow Urine Clarity Clear Urine pH 6.0 (<5.0-8.0) Urine Specific [place] 1.015 (1.000-1.030) Urine Protein Negative mg/dL (NEG-TRACE) Urine Glucose (UA) Negative mg/dL (NEG) Urine Ketones (Stick) Negative mg/dL (NEG) Urine Blood Negative (NEG) Urine Nitrite Negative (NEG) Urine Bilirubin Small (NEG) Urine Urobilinogen Dipstick 1.0 mg/dL (0.2 mg/dL) Urine Leukocyte Esterase Negative (NEG) Urine RBC 0 /HPF (0-2) Urine WBC Rare /HPF (0-4) Urine Squamous Epithelial Cells Few /LPF Urine Bacteria Few /HPF (0-FEW) Urine Mucus Slight /LPF Laboratory Tests 02/14/21 11:55 Laboratory Tests 02/14/21 11:55 ECHOCARDIOGRAM ECHOCARDIOGRAM <Conclusion> The left ventricular systolic function is normal and the ejection fraction is within normal range. EF 55% There is normal LV segmental wall motion. Doppler and Color Flow revealed mild pulmonic valvular regurgitation. DATE: 01/10/21 [id number] 0 STRESS TEST STRESS TEST Conclusion 1. Normal baseline EKG 2. Below average exercise capacity with only 4.6 Mets achieved. 3. Normal stress EKG 4. Moderate risk study due to low exercise capacity but no clear evidence of ischemic EKG changes. (Valenzuela treadmill score of 3) DATE: 01/10/21 [id number] 0 ASSESSMENT/PLAN ASSESSMENT/PLAN 1. Dyspnea; PET scan 02/11/21 with right pleural effusion and pericardial effusion. Echo last month with preserved LV systolic function as above. No pericardial effusion noted. Hemodynamically stable 2. Metastatic breast CA with h/o bilateral mastectomy 3. Transaminitis 4 Lactic acidosis 5. GERD Recommendations Limited echo to assess pericardial effusion LACY HENRIQUEZ MD 02/15/21 4875: CARDIAC CONSULT HISTORY OF PRESENT ILLNESS HISTORY OF PRESENT ILLNESS She reports dyspnea and occ chest pain. She has cancer on PET imaging. PHYSICAL EXAM General: Alert, Oriented X3 HEENT: Atraumatic Lungs: Clear to auscultation Heart: Regular rate Abdomen: Normal bowel sounds Extremities: No clubbing Skin: No rashes Neuro: Normal gait Psych/Mental Status: Mental status NL ASSESSMENT/PLAN ASSESSMENT/PLAN Late entry for 02/14/2021. I have reviewed the PET/CT images with radiology. There is a new small apical pericardial effusion. Limited echo images reviewed. Patient has a small pericardial effusion, not likely causing her issues. She has RV enlargement, with new RV enlargement, malignancy and dyspnea, this would be concerning for P.E. Will order CT P.E protocol now. Thanks. CESILIA SOLOMON APRN Feb 14, 2021 15:03 LACY HENRIQUEZ MD Feb 15, 2021 05:44
[2021-02-14] MEDS ORDERED: ZOLPIDEM 5 MG TABLET. PO PRN (15:15)
[2021-02-14] MEDS ORDERED: ZOLP5TAB5 PO (16:41)
--- NOTE | 2021-02-14 16:41 | PDOC1 ---
History and Physical Date of Admission Date of Admission DATE: 02/14/21 TIME: 16:37 Source Source: Chart review, Patient History of Present Illness History of Present Illness Mrs Salomon, is a 55 year old female with history of breast cancer diagnosed in 2017, underwent a double mastectomy with reconstruction at [facility], when she was still working there., had chemotherapy as well as radiation treatment through 2018, currently on adjuvant therapy with Arimidex, and has established care with the cancer center here. She complains of worsening shortness of breath, slowly over time, worse since September of 2020. Patient states she had a PET scan done 3 days ago that showed she has right pericardial effusion. she has been previously seen by CV and PULM consults here, and follows with Dr. Barksdale, Past Medical History GI: GERD, Peptic Ulcer disease Heme/Onc: Cancer (breast CA) Psych: Anxiety Past Surgical History Past Surgical History: Tubal Ligation Social History Smoke: No ALCOHOL: none Drugs: None Current Problem List Problem List Problems Medical Problems: (1) Pericardial effusion, acute Status: Acute (2) Shortness of breath Status: Acute (3) Tachycardia Status: Acute Current Medications Current Medications Current Medications Morphine Sulfate (Morphine Sulfate) 4 mg PRN Q15MIN PRN IV/SQ PAIN GREATER THAN 3/10; Start 02/14/21 at 11:30; Stop 02/15/21 at 11:29 Ondansetron HCl (Zofran) 4 mg PRN Q8HRS PRN IV NAUSEA/VOMITING; Start 02/14/21 at 14:00; Stop 02/15/21 at 13:59 Morphine Sulfate (Morphine Sulfate) 2 mg PRN Q2HR PRN IV PAIN; Start 02/14/21 at 14:00; Stop 02/15/21 at 13:59 Acetaminophen (Tylenol) 650 mg PRN Q4HRS PRN PO FEVER > 100.3'F; Start 02/14/21 at 14:00; Stop 02/15/21 at 13:59 Acetaminophen (Tylenol) 325 mg Q6HRS PO ; Start 02/14/21 at 18:00 Anastrozole (Arimidex) 1 mg DAILY PO ; Start 02/15/21 at 09:00 Pantoprazole Sodium (Protonix) 40 mg DAILYAC PO ; Start 02/15/21 at 07:30 Non-Formulary Medication (Melatonin ) 1 tab QHS PO ; Start 02/14/21 at 21:00; S hoang FAJARDO Zolpidem Tartrate (Ambien) 5 mg PRN QHS PRN PO INSOMNIA; Start 02/14/21 at 15:15 Active Scripts Active Reported Tylenol (Acetaminophen) 325 Mg Tablet 325 Mg PO Q6HRS Nexium Capsule (Esomeprazole Magnesium) 40 Mg Capsule.dr 1 Cap PO DAILY Arimidex (Anastrozole) 1 Mg Tablet 1 Tab PO DAILY 30 Days Zolpidem Tartrate 3.5 Mg Tab.subl 5 Mg SL HS Melatonin 1 Mg Tablet 1 Tab PO QHS 30 Days Allergies Allergies: Coded Allergies: No Known Drug Allergies (Unverified , 01/28/21) ROS General: YES: Fatigue, Malaise PSYCHOLOGICAL ROS: YES: Sleep disturbances; No: Anxiety, Behavioral Disorder, Concentration difficultie, Decreased libido, Depression, Disorientation, Hallucinations, Hostility, Irritablity, Memory difficulties, Mood Swings, Obsessive thoughts, Suicidal ideation, Other Eyes: No Blurry vision, No Decreased vision, No Double vision, No Dry eyes, No Excessive tearing, No Eye Pain, No Itchy Eyes, No Loss of vision, No Photophobia, No Scotomata, No Uses contacts, No Uses glasses, No Other HEENT: No: Heacaches, Visual Changes, Hearing change, Nasal congestion, Nasal discharge, Oral lesions, Sinus pain, Sore Throat, Epistaxis, Sneezing, Snoring, Tinnitus, Vertigo, Vocal changes, Other Respiratory: YES: Shortness of breath, SOB with excertion, Tachypnea, Other; No: Cough, Hemoptysis, Orthopnea, Pleuritic Pain, Sputum Changes, Stridor, Wheezing Cardiovascular: No Chest Pain, No Palpitations, No Orthopnea, No Paroxysmal Noc . Dyspnea, No Edema, No Lt Headedness, No Other Gastrointestinal: No Nausea, No Vomiting, No Abdominal Pain, No Diarrhea, No Constipation, No Melena, No Hematochezia, No Other Genitourinary: No Dysuria, No Frequency, No Incontinence, No Hematuria, No Retention, No Discharge, No Urgency, No Pain, No Flank Pain, No Other, No , No , No , No , No , No , No Musculoskeletal: No Gait Disturbance, No Joint Pain, No Joint Stiffness, No Joint Swelling, No Muscle Pain, No Muscular Weakness, No Pain In:, No Swelling In:, No Other Neurological: No Behavorial Changes, No Bowel/Bladder ControlChng, No Confusion, No Dizziness, No Gait Disturbance, No Headaches, No Impaired Coord/balance, No Memory Loss, No Numbness/Tingling, No Seizures, No Speech Problems, No Tremors, No Visual Changes, No Weakness, No Other Skin: No Dry Skin, No Eczema, No Hair Changes, No Lumps, No Mole Changes, No Mottling, No Nail Changes, No Pruritus, No Rash, No Skin Lesion Changes, No Other, No Acne Physical Exam General: Alert, Oriented X3, No acute distress HEENT: Atraumatic, PERRLA Lungs: Clear to auscultation Heart: S1S2, RRR Abdomen: Normal bowel sounds, Soft Rectal Exam: not examined Extremities: No clubbing, No edema Skin: No rashes, No significant lesion Neuro: Normal speech, Sensation intact Psych/Mental Status: Mental status NL Vitals Vitals Vital Signs Date Time Temp Pulse Resp B/P (MAP) Pulse Ox O2 Delivery O2 Flow Rate FiO2 02/14/21 12:34 98 99/72 (81) 97 Nasal Cannula 2.0 02/14/21 10:39 97.2 20 97.2 Labs Labs Laboratory Tests Test 02/14/21 11:55 02/14/21 13:55 02/14/21 15:30 White Blood Count 4.1 x10^3/uL (4.0-11.0) Red Blood Count 4.84 x10^6/uL (3.50-5.40) Hemoglobin 14.1 g/dL (12.0-15.5) Hematocrit 43.5 % (36.0-47.0) Mean Corpuscular Volume 90 fL (79-100) Mean Corpuscular Hemoglobin 29 pg (25-35) Mean Corpuscular Hemoglobin Concent 32 g/dL (31-37) Red Cell Distribution Width 13.9 % (11.5-14.5) Platelet Count 132 x10^3/uL (140-400) Neutrophils (%) (Auto) 70 % (31-73) Lymphocytes (%) (Auto) 18 % (24-48) Monocytes (%) (Auto) 11 % (0-9) Eosinophils (%) (Auto) 1 % (0-3) Basophils (%) (Auto) 0 % (0-3) Neutrophils # (Auto) 2.9 x10^3/uL (1.8-7.7) Lymphocytes # (Auto) 0.7 x10^3/uL (1.0-4.8) Monocytes # (Auto) 0.4 x10^3/uL (0.0-1.1) Eosinophils # (Auto) 0.0 x10^3/uL (0.0-0.7) Basophils # (Auto) 0.0 x10^3/uL (0.0-0.2) Prothrombin Time 14.0 SEC (11.7-14.0) Prothromb Time International Ratio 1.1 (0.8-1.1) Activated Partial Thromboplast Time 38 SEC (24-38) Sodium Level 140 mmol/L (136-145) Potassium Level 4.2 mmol/L (3.5-5.1) Chloride Level 106 mmol/L (98-107) Carbon Dioxide Level 24 mmol/L (21-32) Anion Gap 10 (6-14) Blood Urea Nitrogen 13 mg/dL (7-20) Creatinine 0.8 mg/dL (0.6-1.0) Estimated GFR (Cockcroft-Gault) 75.0 BUN/Creatinine Ratio 16 (6-20) Glucose Level 192 mg/dL (70-99) Lactic Acid Level 2.5 mmol/L (0.4-2.0) 2.2 mmol/L (0.4-2.0) Calcium Level 8.7 mg/dL (8.5-10.1) Magnesium Level 2.0 mg/dL (1.8-2.4) Total Bilirubin 1.3 mg/dL (0.2-1.0) Aspartate Amino Transf (AST/SGOT) 259 U/L (15-37) Alanine Aminotransferase (ALT/SGPT) 205 U/L (14-59) Alkaline Phosphatase 421 U/L (46-116) Creatine Kinase 83 U/L (26-192) Creatine Kinase MB (Mass) 3.6 ng/mL (0.0-3.6) Creatine Kinase MB Relative Index 4.3 % (0-4) Troponin I Quantitative 0.110 ng/mL (0.000-0.055) 0.122 ng/mL (0.000-0.055) PS-Ewp-W-Type Natriuretic Peptide 1362 pg/mL (0-124) Total Protein 6.7 g/dL (6.4-8.2) Albumin 2.8 g/dL (3.4-5.0) Albumin/Globulin Ratio 0.7 (1.0-1.7) Procalcitonin 0.12 ng/mL (0.00-0.10) Thyroid Stimulating Hormone (TSH) 1.369 uIU/mL (0.358-3.74) Urine Collection Type Unknown Urine Color Dk yellow Urine Clarity Clear Urine pH 6.0 (<5.0-8.0) Urine Specific [place] 1.015 (1.000-1.030) Urine Protein Negative mg/dL (NEG-TRACE) Urine Glucose (UA) Negative mg/dL (NEG) Urine Ketones (Stick) Negative mg/dL (NEG) Urine Blood Negative (NEG) Urine Nitrite Negative (NEG) Urine Bilirubin Small (NEG) Urine Urobilinogen Dipstick 1.0 mg/dL (0.2 mg/dL) Urine Leukocyte Esterase Negative (NEG) Urine RBC 0 /HPF (0-2) Urine WBC Rare /HPF (0-4) Urine Squamous Epithelial Cells Few /LPF Urine Bacteria Few /HPF (0-FEW) Urine Mucus Slight /LPF Laboratory Tests Test 02/14/21 11:55 02/14/21 13:55 02/14/21 15:30 White Blood Count 4.1 x10^3/uL (4.0-11.0) Red Blood Count 4.84 x10^6/uL (3.50-5.40) Hemoglobin 14.1 g/dL (12.0-15.5) Hematocrit 43.5 % (36.0-47.0) Mean Corpuscular Volume 90 fL (79-100) Mean Corpuscular Hemoglobin 29 pg (25-35) Mean Corpuscular Hemoglobin Concent 32 g/dL (31-37) Red Cell Distribution Width 13.9 % (11.5-14.5) Platelet Count 132 x10^3/uL (140-400) Neutrophils (%) (Auto) 70 % (31-73) Lymphocytes (%) (Auto) 18 % (24-48) Monocytes (%) (Auto) 11 % (0-9) Eosinophils (%) (Auto) 1 % (0-3) Basophils (%) (Auto) 0 % (0-3) Neutrophils # (Auto) 2.9 x10^3/uL (1.8-7.7) Lymphocytes # (Auto) 0.7 x10^3/uL (1.0-4.8) Monocytes # (Auto) 0.4 x10^3/uL (0.0-1.1) Eosinophils # (Auto) 0.0 x10^3/uL (0.0-0.7) Basophils # (Auto) 0.0 x10^3/uL (0.0-0.2) Prothrombin Time 14.0 SEC (11.7-14.0) Prothromb Time International Ratio 1.1 (0.8-1.1) Activated Partial Thromboplast Time 38 SEC (24-38) Sodium Level 140 mmol/L (136-145) Potassium Level 4.2 mmol/L (3.5-5.1) Chloride Level 106 mmol/L (98-107) Carbon Dioxide Level 24 mmol/L (21-32) Anion Gap 10 (6-14) Blood Urea Nitrogen 13 mg/dL (7-20) Creatinine 0.8 mg/dL (0.6-1.0) Estimated GFR (Cockcroft-Gault) 75.0 BUN/Creatinine Ratio 16 (6-20) Glucose Level 192 mg/dL (70-99) Lactic Acid Level 2.5 mmol/L (0.4-2.0) 2.2 mmol/L (0.4-2.0) Calcium Level 8.7 mg/dL (8.5-10.1) Magnesium Level 2.0 mg/dL (1.8-2.4) Total Bilirubin 1.3 mg/dL (0.2-1.0) Aspartate Amino Transf (AST/SGOT) 259 U/L (15-37) Alanine Aminotransferase (ALT/SGPT) 205 U/L (14-59) Alkaline Phosphatase 421 U/L (46-116) Creatine Kinase 83 U/L (26-192) Creatine Kinase MB (Mass) 3.6 ng/mL (0.0-3.6) Creatine Kinase MB Relative Index 4.3 % (0-4) Troponin I Quantitative 0.110 ng/mL (0.000-0.055) 0.122 ng/mL (0.000-0.055) ZU-Asd-U-Type Natriuretic Peptide 1362 pg/mL (0-124) Total Protein 6.7 g/dL (6.4-8.2) Albumin 2.8 g/dL (3.4-5.0) Albumin/Globulin Ratio 0.7 (1.0-1.7) Procalcitonin 0.12 ng/mL (0.00-0.10) Thyroid Stimulating Hormone (TSH) 1.369 uIU/mL (0.358-3.74) Urine Collection Type Unknown Urine Color Dk yellow Urine Clarity Clear Urine pH 6.0 (<5.0-8.0) Urine Specific [place] 1.015 (1.000-1.030) Urine Protein Negative mg/dL (NEG-TRACE) Urine Glucose (UA) Negative mg/dL (NEG) Urine Ketones (Stick) Negative mg/dL (NEG) Urine Blood Negative (NEG) Urine Nitrite Negative (NEG) Urine Bilirubin Small (NEG) Urine Urobilinogen Dipstick 1.0 mg/dL (0.2 mg/dL) Urine Leukocyte Esterase Negative (NEG) Urine RBC 0 /HPF (0-2) Urine WBC Rare /HPF (0-4) Urine Squamous Epithelial Cells Few /LPF Urine Bacteria Few /HPF (0-FEW) Urine Mucus Slight /LPF VTE Prophylaxis Ordered VTE Prophylaxis Devices: No VTE Pharmacological Prophylaxi: No Assessment/Plan Assessment/Plan worsening shortness of breath with hypoxia, metastatic breast cancer, s/p Bilat masectomy and radiation, now on adjuvant therapy with Arimidex Justifications for Admission Other Justification ALISTAIR ASIF MD Feb 14, 2021 16:41
[2021-02-14] MEDS: ACETAMINOPHEN 325 MG TABLET. PO SCH (18:00)
[2021-02-14] MEDS ORDERED: ANASTROZOLE 1 MG TABLET PO ONE (19:30)
[2021-02-14 19:45] VITALS: BP 96/74
[2021-02-14] MEDS ORDERED: NON FORMULARY ITEM (Melatonin 1 TAB) PO SCH (21:00)
[2021-02-14 23:15] VITALS: BP 92/60
[2021-02-15] VITALS (12 sets, daily range): BP systolic 82–119; BP diastolic 67–94
[2021-02-15] MEDS: ACETAMINOPHEN 325 MG TABLET. PO SCH ×4 (05:34→18:00)
[2021-02-15] MEDS ORDERED: IOHEXOL 350 MG/ML 100 ML VIAL. IV ONE (06:00)
[2021-02-15] MEDS ORDERED: CONTRAST GIVEN. MC PRN (06:00)
--- NOTE | 2021-02-15 06:34 | RAD ---
PQRS Compliance Statement: One or more of the following individualized dose reduction techniques were utilized for this examinat ion: 1. Automated exposure control 2. Adjustment of the mA and/or kV according to patient size 3. Use of iterative reconstruction technique CT CHEST WITH CONTRAST, PULMONARY ANGIOGRAM History: Tachycardia, shortness of breath. History of thyroid cancer. Comparison: CT chest without contrast 12/20/2020. Technique: Helical CT of the chest was performed after the administration of 100 cc of Omnipaque 350 intravenous contrast according to PE protocol. Axial and coronal reconstructions were obtained. 3- D MIP images were constructed to better evaluate the pulmonary arteries. Findings: Pulmonary arteries are adequately opacified. There is no evidence of pulmonary embolism. Pulmonary trunk is dilated. There is no thoracic aortic dissection. There is probable left thyroid no dule. Bilateral mastectomies and reconstructions. Right axillary surgical clips. Mediastinal adenopat hy has increased from prior study. There is mild bilateral hilar adenopathy. The cardiac size is norm al. There is moderate pericardial effusion, new from prior study. There is moderate right pleural effusion. There is radiation fibrosis of the anterior right lung, unc hanged. There is mild compressive atelectasis in the posterior right lung adjacent to the effusion. T here is a new 4 mm nodule with groundglass halo in the left upper lobe, image 68. Nodule could be inf ectious/inflammatory. There are 2 subcentimeter nodular opacities in the left lower lobe, image 133. Question mild peripancreatic fluid near the tail. Thoracic spine alignment is maintained. IMPRESSION: 1. There is no pulmonary embolus. 2. Moderate right pleural effusion. 3. Moderate pericardial effusion. 4. Pulmonary trunk is dilated suggesting pulmonary arterial hypertension. 5. Mediastinal and bilateral hilar adenopathy. 6. Question mild peripancreatic fluid near the pancreas tail. Suggest correlation with lipase. Electronically signed by: Pelon Courtney MD (02/15/2021 6:31 AM) [facility]
[2021-02-15 07:12] LABS: BASO % 0 % (0-3); EOS # 0.1 x10^3/uL (0.0-0.7); EOS % 2 % (0-3); HEMATOCRIT 39.8 % (36.0-47.0); HEMOGLOBIN 13.1 g/dL (12.0-15.5); LYMPH # 1.2 x10^3/uL (1.0-4.8); LYMPH % 22 % (24-48); MEAN CORPUSCULAR HEMOGLOBIN 29 pg (25-35); MEAN CORPUSCULAR HGB CONC 33 g/dL (31-37); MEAN CORPUSCULAR VOLUME 89 fL (79-100); MONO # 0.6 x10^3/uL (0.0-1.1); MONO % 11 % (0-9); NEUT # 3.4 x10^3/uL (1.8-7.7); NEUT % 65 % (31-73); PLATELET COUNT 122 x10^3/uL (140-400); RED BLOOD COUNT 4.47 x10^6/uL (3.50-5.40); RED CELL DISTRIBUTION WIDTH 13.9 % (11.5-14.5); WHITE BLOOD COUNT 5.3 x10^3/uL (4.0-11.0)
[2021-02-15 07:57] LABS: ALBUMIN 2.6 g/dL (3.4-5.0); ALBUMIN/GLOBULIN RATIO 0.7 (1.0-1.7); CALCIUM 8.3 mg/dL (8.5-10.1); CREATININE 0.6 mg/dL (0.6-1.0); GFR 104.6; POTASSIUM 3.8 mmol/L (3.5-5.1); TOTAL BILIRUBIN 1.4 mg/dL (0.2-1.0); TOTAL PROTEIN 6.2 g/dL (6.4-8.2)
[2021-02-15] MEDS: PANTOPRAZOLE 40 MG TABLET.DR. PO SCH (08:29)
[2021-02-15] MEDS: ANASTROZOLE 1 MG TABLET PO SCH (08:33)
--- NOTE | 2021-02-15 10:06 | CARD ---
MR#: [id number] Date of Study: 02/14/2021 Ordering Physician: JALEEL COX, Referring Physician: JALEEL COX, Tech: Yue Pack RDCS APPROVED REPORT EXAM: LIMITED Two-dimensional and M-mode echocardiogram with Doppler and color Doppler. Other Information Quality : Good INDICATION Pericardial Effusion Dyspnea Hx: Breast Cancer & Flap Reconstruction/Chemotherapy 2D DIMENSIONS RVDd4.2 (2.9-3.5cm) Tricuspid Valve TR P. [id number] TR Peak [id number] LEFT VENTRICLE Left ventricle systolic function is normal. The Ejection Fraction is 55-60%. There is a flattened sep barrett consistent with right ventricle pressure overload. Septal motion consistent with conduction abnor mality. RIGHT VENTRICLE The right ventricle is severely dilated. RV Systolic function is moderately reduced. ATRIA The right atrium is moderately dilated. AORTIC VALVE The aortic valve was not interrogated due to echo previously done in December 2020 but appears to be opening normally. MITRAL VALVE The mitral valve is calcified but opens well. Mitral annular calcification is mild. There is no evide nce of mitral valve prolapse. TRICUSPID VALVE The tricuspid valve is normal in structure and function. Doppler and Color Flow revealed trace to mil d tricuspid regurgitation. There is moderate-severe pulmonary hypertension. The PA pressure was estim ated at 63 mmHg. There is no tricuspid valve stenosis. PULMONIC VALVE The pulmonic valve is not well visualized. Doppler and Color Flow revealed mild pulmonic valvular reg urgitation. There is no pulmonic valvular stenosis. GREAT VESSELS The aortic root is normal in size. The IVC is normal in size and collapses <50% with inspiration. PERICARDIAL EFFUSION There is a small to medium (approximately 1.25 cm) loculated apical pericardial effusion. Critical Notification Critical Value: No <Conclusion> Left ventricle systolic function is normal. The Ejection Fraction is 55-60%. There is a flattened septum consistent with right ventricle pressure overload. Septal motion consist ent with conduction abnormality. The right ventricle is severely dilated. RV Systolic function is moderately reduced. Doppler and Color Flow revealed trace to mild tricuspid regurgitation. There is moderate-severe pulmo nary hypertension. The PA pressure was estimated at 63 mmHg. There is a small to medium (approximately 1.25 cm) loculated apical pericardial effusion. Signed by : Matias Ewing, Electronically Approved : 02/15/2021 10:05:56
--- NOTE | 2021-02-15 10:30 | CONS ---
DATE OF CONSULTATION: PULMONARY CONSULTATION ATTENDING PHYSICIAN: Dr. Canada. REASON FOR CONSULTATION: Dyspnea, hypoxic respiratory failure. HISTORY OF PRESENT ILLNESS: The patient is a pleasant 55-year-old female who was diagnosed with breast cancer in 2017. She underwent double mastectomy with reconstruction surgery at and then had chemotherapy as well as radiation treatment through 2019. The patient was on adjuvant therapy with Arimidex and prior to that was on tamoxifen. The patient has been brought into the hospital with progressive shortness of breath. The dyspnea started at end of September. The patient has seen my partner, Dr. Felipe for determining the etiology of her dyspnea. She has no cough, no hemoptysis. She has some chest tightness. The dyspnea has progressed in the last 3-4 weeks. The patient underwent a PET scan recently and was found to have evidence of extensive bony metastasis involving C5, T3, L1, L4 and also pelvic bones. She had a small to moderate right sided pleural effusion and also was noted to have a small to moderate pericardial effusion. She also had an echocardiogram, which revealed evidence of pulmonary hypertension with pulmonary artery systolic pressure of 63. The patient underwent a CTA chest, which was reviewed by me. There was no evidence of pulmonary embolism; however, there was [id number] right pleural effusion and moderate pericardial effusion. There was dilatation of the pulmonary trunk suggesting pulmonary arterial hypertension. There was mediastinal and bilateral hilar adenopathy. There was some evidence of peripancreatic fluid near pancreas tail. She has no significant tobacco history. She has never done any vaping. No history of pulmonary embolism or deep vein thrombosis. She has no leg edema. No focal weakness. No history of asthma. PAST MEDICAL HISTORY: History of peptic ulcer disease, history of breast cancer as discussed above, history of anxiety. PAST SURGICAL HISTORY: Tubal ligation and bilateral mastectomy and reconstruction. SOCIAL HISTORY: Nonsmoker. ALLERGIES: None. CURRENT MEDICATIONS: Reviewed as listed in the MRAD. REVIEW OF SYSTEMS: Twelve-point system obtained. Pertinent positives discussed in my history of present illness, otherwise noncontributory. All systems that were negative were reviewed as well. FAMILY HISTORY: Noncontributory to lungs. PHYSICAL EXAMINATION: VITAL SIGNS: Reviewed. Pulse ox is 92% on 2 liters, blood pressure is stable, in fact blood pressure on the low side 82 systolic, now 92 systolic. NECK: Supple. LUNGS: With slightly diminished breath sounds right base. CARDIOVASCULAR: With a regular rate. ABDOMEN: Soft. EXTREMITIES: With no pitting edema. LABORATORY DATA: Reviewed. Her BUN and creatinine normal. Her bilirubin 1.4. AST and ALT elevated. Troponin is 0.12 and procalcitonin 0.12. INR 1.1. White cell count 5.3, hemoglobin 13.1 and platelets are 122. IMPRESSION: 1. Progressive dyspnea with acute hypoxic respiratory failure. This is likely secondary to combination of pulmonary hypertension, a small to moderate right sided pleural effusion and a small to moderate pericardial effusion. Likely, the effusions are metastatic. 2. The patient with breast cancer diagnosed in 2018, status post bilateral mastectomy and reconstruction surgery followed by chemo and radiation. Now has a highly abnormal PET scan suggestive of extensive bony metastasis. She also has suspected pleural and pericardial metastases in addition abnormal liver function test suggestive of possible hepatic metastasis as well. 3. Pulmonary hypertension, moderate with a pulmonary artery systolic pressure of 63. There is evidence of dilatation of the pulmonary trunk on the CT chest. There is no evidence of pulmonary embolism. I suspect this pulmonary hypertension is secondary and may be due to a restrictive physiology. She has evidence of [id number] pericardial effusion. She would benefit from a right heart catheterization to better assess for severity of pulmonary hypertension and also to rule out early pericardial tamponade or restrictive physiology. 4. No significant tobacco history. RECOMMENDATIONS: 1. I have discussed with Dr. Ewing and Dr. Canada. I think the next best test would be to do a right heart catheterization. We will assess the pressures, rule out any restrictive physiology as well as any early tamponade findings. 2. We can also consider doing thoracentesis to see if that makes a difference in her symptoms. 3. I will leave up to Cardiology regarding the need for any pericardiocentesis. At this time, it can be closely watched for any further increase. 4. Continue present oxygen. 5. Follow liver function test. 6. Follow Oncology recommendations. RONIT CHANCE MD DR: NICHO/lee JOB#: [id number] / [id number]
[2021-02-15] MEDS ORDERED: LIDOCAINE 1% Multi-Dose 20 ML VIAL. ONE (11:44)
[2021-02-15] MEDS ORDERED: IODIXANOL 320 MG/ML 100 ML VIAL. ONE (11:48)
[2021-02-15] MEDS ORDERED: fentaNYL PF VIAL 100 MCG/2 ML VIAL ONE (11:53)
[2021-02-15] MEDS ORDERED: MIDAZOLAM HCL/PF 2 MG/2 ML VIAL. ONE (12:10)
[2021-02-15] MEDS ORDERED: LIDOCAINE 1% Multi-Dose 20 ML VIAL. INJ ONE (12:30)
[2021-02-15] MEDS ORDERED: ADENOSINE 90 MG/30 ML VIAL. IV ONE (12:38)
--- NOTE | 2021-02-15 12:56 | PDOC2 ---
CONSULT Date of Consult Date of Consult DATE: 02/15/21 TIME: 12:40 Reason for Consult Reason for Consult: Metastatic breast cancer Referring Physician Referring Physician: Dr. Canada Identification/Chief Complaint Chief Complaint Shortness of breath Source Source: Chart review, Patient History of Present Illness Reason for Visit: Adele Salomon (Kimberly) is a 55-year-old postmenopausal female with history of right breast invasive ductal carcinoma, ER positive, HER-2 positive who underwent bilateral mastectomy in 2018 with neoadjuvant and adjuvant HER-2 directed therapy. Patient recently reported worsening shortness of breath and back pain and received further evaluation for an enlarged cervical lymph node. She received a biopsy of these lymph nodes which showed recurrent breast cancer. She was seen in the office yesterday for recommendations for additional treatment. Patient received PET/CT for cancer staging on 02/11/2021. PET/CT showed diffuse metastatic disease in the bones, lungs, possibly liver and new pericardial and pleural effusion. During her office visit, patient was extremely short of breath and was unable to complete sentences. Vital signs during office visit showed tachycardia at rest with heart rate of 110s to 120s. She was sent to the emergency room for further evaluation for pericardial tamponade. Of note, she was seen by cardiology recently and received an echocardiogram which did not show a pericardial effusion. She has been admitted to [facility] on 02/14/2021. She received a repeat echocardiogram which showed a loculated pericardial effusion that is small in size. Evidence of right heart strain and pulmonary hypertension were seen. CT angiogram was obtained for further evaluation of pulmonary embolism that may explain these findings but did not show PE. A right heart catheterization has been recommended by pulmonology and is being planned for later today. Past Medical History GI: GERD, Peptic Ulcer disease Heme/Onc: Cancer (breast CA) Psych: Anxiety Past Surgical History Past Surgical History: Tubal Ligation Social History No ALCOHOL: none Drugs: None Lives: with Family Current Problem List Problem List Problems Medical Problems: (1) Pericardial effusion, acute Status: Acute (2) Shortness of breath Status: Acute (3) Tachycardia Status: Acute Current Medications Current Medications Current Medications Morphine Sulfate (Morphine Sulfate) 4 mg PRN Q15MIN PRN IV/SQ PAIN GREATER THAN 3/10; Start 02/14/21 at 11:30; Stop 02/14/21 at 19:23; Status DC Ondansetron HCl (Zofran) 4 mg PRN Q8HRS PRN IV NAUSEA/VOMITING; Start 02/14/21 at 14:00; Stop 02/15/21 at 13:59 Morphine Sulfate (Morphine Sulfate) 2 mg PRN Q2HR PRN IV PAIN; Start 02/14/21 at 14:00; Stop 02/15/21 at 13:59 Acetaminophen (Tylenol) 650 mg PRN Q4HRS PRN PO FEVER > 100.3'F Last administered on 02/14/21at 21:19; Start 02/14/21 at 14:00; Stop 02/15/21 at 13:59 Acetaminophen (Tylenol) 325 mg Q6HRS PO ; Start 02/14/21 at 18:00 Anastrozole (Arimidex) 1 mg DAILY PO Last administered on 02/15/21at 08:33; Start 02/15/21 at 09:00 Pantoprazole Sodium (Protonix) 40 mg DAILYAC PO Last administered on 02/15/21at 08:29; Start 02/15/21 at 07:30 Non-Formulary Medication (Melatonin ) 1 tab QHS PO ; Start 02/14/21 at 21:00; Status UNV Zolpidem Tartrate (Ambien) 5 mg PRN QHS PRN PO INSOMNIA; Start 02/14/21 at 15:15 Anastrozole (Arimidex) 1 mg 1X ONCE PO Last administered on 02/14/21at 19:27; Start 02/14/21 at 19:30; Stop 02/14/21 at 19:31; Status DC Enoxaparin Sodium (Lovenox 60mg Syringe) 60 mg 1X ONCE SQ Last administered on 02/15/21at 06:00; Start 02/15/21 at 06:00; Stop 02/15/21 at 06:01; Status DC Iohexol (Omnipaque 350 Mg/ml) 100 ml 1X ONCE IV Last administered on 02/15/21at 06:18; Start 02/15/21 at 06:00; Stop 02/15/21 at 06:01; Status DC Info (CONTRAST GIVEN -- Rx MONITORING) 1 each PRN DAILY PRN MC SEE COMMENTS; Start 02/15/21 at 06:00; Stop 02/17/21 at 05:59 Zolpidem Tartrate (Ambien) 5 mg HS PO ; Start 02/15/21 at 21:00 Lidocaine HCl (Lidocaine 1% 20ml Vial) 20 ml STK-MED ONCE .ROUTE ; Start 02/15/21 at 11:44; Stop 02/15/21 at 11:45; Status DC Heparin Sodium/ Sodium Chloride 1,000 ml @ As Directed STK-MED ONCE .ROUTE ; Start 02/15/21 at 11:44; Stop 02/15/21 at 11:45; Status DC Iodixanol (Visipaque 320) 100 ml STK-MED ONCE .ROUTE ; Start 02/15/21 at 11:48; Stop 02/15/21 at 11:48; Status DC Fentanyl Citrate (Fentanyl 2ml Vial) 100 mcg STK-MED ONCE .ROUTE ; Start 02/15/21 at 11:53; Stop 02/15/21 at 11:53; Status DC Midazolam HCl (Versed) 2 mg STK-MED ONCE .ROUTE ; Start 02/15/21 at 12:10; Stop 02/15/21 at 12:10; Status DC Heparin Sodium/ Sodium Chloride (HEPARIN for ARTERIAL LINE FLUSH) 1,000 unit 1X ONCE IART ; Start 02/15/21 at 12:30; Stop 02/15/21 at 12:32; Status DC Lidocaine HCl (Lidocaine 1% 20ml Vial) 20 ml 1X ONCE INJ ; Start 02/15/21 at 12:30; Stop 02/15/21 at 12:32; Status DC Adenosine (Adenoscan) 90 mg STK-MED ONCE IV ; Start 02/15/21 at 12:38; Stop 02/15/21 at 12:38; Status DC Active Scripts Active Reported Zolpidem Tartrate 5 Mg Tablet 5 Mg PO PRN QHS PRN Nexium Capsule (Esomeprazole Magnesium) 40 Mg Capsule. 1 Cap PO DAILY Arimidex (Anastrozole) 1 Mg Tablet 1 Tab PO DAILY 30 Days Allergies Allergies: Coded Allergies: No Known Drug Allergies (Unverified , 01/28/21) ROS Review of System Positive for fatigue, shortness of breath, chest pain, back pain. Negative for cough, fever. Review of systems was negative unless stated otherwise Physical Exam Physical Exam General: Awake, alert, mild distress Head: Atraumatic, no conjunctival icterus, normal oral cavity mucosa Neck: Supple, no lymphadenopathy Chest: No trauma noted Cardiovascular: Regular rhythm, normal rate, no murmurs Respiratory: Bilateral air entry noted, lungs clear to auscultation bilaterally. No accessory muscle use Abdominal: Abdomen is soft, nontender, nondistended. Bowel sounds were normal. No hepatomegaly or splenomegaly Musculoskeletal: No deformity noted Extremities: No edema noted Skin: No rash or lesions Neurologic: Alert and oriented x3, no grossly evident neurologic deficits noted. Full neurological exam was not performed Psychiatric: Appropriate mood and affect Vitals VITALS Vital Signs Date Time Temp Pulse Resp B/P (MAP) Pulse Ox O2 Delivery O2 Flow Rate FiO2 02/15/21 11:00 97.7 111 16 94/75 (81) 95 Nasal Cannula 2.0 97.7 Labs Labs Laboratory Tests Test 02/14/21 11:55 02/14/21 13:55 02/14/21 15:30 02/14/21 19:00 White Blood Count 4.1 x10^3/uL (4.0-11.0) Red Blood Count 4.84 x10^6/uL (3.50-5.40) Hemoglobin 14.1 g/dL (12.0-15.5) Hematocrit 43.5 % (36.0-47.0) Mean Corpuscular Volume 90 fL (79-100) Mean Corpuscular Hemoglobin 29 pg (25-35) Mean Corpuscular Hemoglobin Concent 32 g/dL (31-37) Red Cell Distribution Width 13.9 % (11.5-14.5) Platelet Count 132 x10^3/uL (140-400) Neutrophils (%) (Auto) 70 % (31-73) Lymphocytes (%) (Auto) 18 % (24-48) Monocytes (%) (Auto) 11 % (0-9) Eosinophils (%) (Auto) 1 % (0-3) Basophils (%) (Auto) 0 % (0-3) Neutrophils # (Auto) 2.9 x10^3/uL (1.8-7.7) Lymphocytes # (Auto) 0.7 x10^3/uL (1.0-4.8) Monocytes # (Auto) 0.4 x10^3/uL (0.0-1.1) Eosinophils # (Auto) 0.0 x10^3/uL (0.0-0.7) Basophils # (Auto) 0.0 x10^3/uL (0.0-0.2) Prothrombin Time 14.0 SEC (11.7-14.0) Prothromb Time International Ratio 1.1 (0.8-1.1) Activated Partial Thromboplast Time 38 SEC (24-38) Sodium Level 140 mmol/L (136-145) Potassium Level 4.2 mmol/L (3.5-5.1) Chloride Level 106 mmol/L (98-107) Carbon Dioxide Level 24 mmol/L (21-32) Anion Gap 10 (6-14) Blood Urea Nitrogen 13 mg/dL (7-20) Creatinine 0.8 mg/dL (0.6-1.0) Estimated GFR (Cockcroft-Gault) 75.0 BUN/Creatinine Ratio 16 (6-20) Glucose Level 192 mg/dL (70-99) Lactic Acid Level 2.5 mmol/L (0.4-2.0) 2.2 mmol/L (0.4-2.0) Calcium Level 8.7 mg/dL (8.5-10.1) Magnesium Level 2.0 mg/dL (1.8-2.4) Total Bilirubin 1.3 mg/dL (0.2-1.0) Aspartate Amino Transf (AST/SGOT) 259 U/L (15-37) Alanine Aminotransferase (ALT/SGPT) 205 U/L (14-59) Alkaline Phosphatase 421 U/L (46-116) Creatine Kinase 83 U/L (26-192) Creatine Kinase MB (Mass) 3.6 ng/mL (0.0-3.6) Creatine Kinase MB Relative Index 4.3 % (0-4) Troponin I Quantitative 0.110 ng/mL (0.000-0.055) 0.122 ng/mL (0.000-0.055) 0.131 ng/mL (0.000-0.055) VF-Eoa-J-Type Natriuretic Peptide 1362 pg/mL (0-124) Total Protein 6.7 g/dL (6.4-8.2) Albumin 2.8 g/dL (3.4-5.0) Albumin/Globulin Ratio 0.7 (1.0-1.7) Procalcitonin 0.12 ng/mL (0.00-0.10) Thyroid Stimulating Hormone (TSH) 1.369 uIU/mL (0.358-3.74) Urine Collection Type Unknown Urine Color Dk yellow Urine Clarity Clear Urine pH 6.0 (<5.0-8.0) Urine Specific [place] 1.015 (1.000-1.030) Urine Protein Negative mg/dL (NEG-TRACE) Urine Glucose (UA) Negative mg/dL (NEG) Urine Ketones (Stick) Negative mg/dL (NEG) Urine Blood Negative (NEG) Urine Nitrite Negative (NEG) Urine Bilirubin Small (NEG) Urine Urobilinogen Dipstick 1.0 mg/dL (0.2 mg/dL) Urine Leukocyte Esterase Negative (NEG) Urine RBC 0 /HPF (0-2) Urine WBC Rare /HPF (0-4) Urine Squamous Epithelial Cells Few /LPF Urine Bacteria Few /HPF (0-FEW) Urine Mucus Slight /LPF Test 02/15/21 06:45 02/15/21 10:59 White Blood Count 5.3 x10^3/uL (4.0-11.0) Red Blood Count 4.47 x10^6/uL (3.50-5.40) Hemoglobin 13.1 g/dL (12.0-15.5) Hematocrit 39.8 % (36.0-47.0) Mean Corpuscular Volume 89 fL (79-100) Mean Corpuscular Hemoglobin 29 pg (25-35) Mean Corpuscular Hemoglobin Concent 33 g/dL (31-37) Red Cell Distribution Width 13.9 % (11.5-14.5) Platelet Count 122 x10^3/uL (140-400) Neutrophils (%) (Auto) 65 % (31-73) Lymphocytes (%) (Auto) 22 % (24-48) Monocytes (%) (Auto) 11 % (0-9) Eosinophils (%) (Auto) 2 % (0-3) Basophils (%) (Auto) 0 % (0-3) Neutrophils # (Auto) 3.4 x10^3/uL (1.8-7.7) Lymphocytes # (Auto) 1.2 x10^3/uL (1.0-4.8) Monocytes # (Auto) 0.6 x10^3/uL (0.0-1.1) Eosinophils # (Auto) 0.1 x10^3/uL (0.0-0.7) Basophils # (Auto) 0.0 x10^3/uL (0.0-0.2) Sodium Level 141 mmol/L (136-145) Potassium Level 3.8 mmol/L (3.5-5.1) Chloride Level 107 mmol/L (98-107) Carbon Dioxide Level 22 mmol/L (21-32) Anion Gap 12 (6-14) Blood Urea Nitrogen 10 mg/dL (7-20) Creatinine 0.6 mg/dL (0.6-1.0) Estimated GFR (Cockcroft-Gault) 104.6 BUN/Creatinine Ratio 17 (6-20) Glucose Level 128 mg/dL (70-99) Calcium Level 8.3 mg/dL (8.5-10.1) Total Bilirubin 1.4 mg/dL (0.2-1.0) Aspartate Amino Transf (AST/SGOT) 298 U/L (15-37) Alanine Aminotransferase (ALT/SGPT) 203 U/L (14-59) Alkaline Phosphatase 409 U/L (46-116) Total Protein 6.2 g/dL (6.4-8.2) Albumin 2.6 g/dL (3.4-5.0) Albumin/Globulin Ratio 0.7 (1.0-1.7) SARS-CoV-2 Antigen (Rapid) Negative (NEGATIVE) Laboratory Tests Test 02/14/21 13:55 02/14/21 15:30 02/14/21 19:00 02/15/21 06:45 Urine Collection Type Unknown Urine Color Dk yellow Urine Clarity Clear Urine pH 6.0 (<5.0-8.0) Urine Specific [place] 1.015 (1.000-1.030) Urine Protein Negative mg/dL (NEG-TRACE) Urine Glucose (UA) Negative mg/dL (NEG) Urine Ketones (Stick) Negative mg/dL (NEG) Urine Blood Negative (NEG) Urine Nitrite Negative (NEG) Urine Bilirubin Small (NEG) Urine Urobilinogen Dipstick 1.0 mg/dL (0.2 mg/dL) Urine Leukocyte Esterase Negative (NEG) Urine RBC 0 /HPF (0-2) Urine WBC Rare /HPF (0-4) Urine Squamous Epithelial Cells Few /LPF Urine Bacteria Few /HPF (0-FEW) Urine Mucus Slight /LPF Lactic Acid Level 2.2 mmol/L (0.4-2.0) Troponin I Quantitative 0.122 ng/mL (0.000-0.055) 0.131 ng/mL (0.000-0.055) White Blood Count 5.3 x10^3/uL (4.0-11.0) Red Blood Count 4.47 x10^6/uL (3.50-5.40) Hemoglobin 13.1 g/dL (12.0-15.5) Hematocrit 39.8 % (36.0-47.0) Mean Corpuscular Volume 89 fL (79-100) Mean Corpuscular Hemoglobin 29 pg (25-35) Mean Corpuscular Hemoglobin Concent 33 g/dL (31-37) Red Cell Distribution Width 13.9 % (11.5-14.5) Platelet Count 122 x10^3/uL (140-400) Neutrophils (%) (Auto) 65 % (31-73) Lymphocytes (%) (Auto) 22 % (24-48) Monocytes (%) (Auto) 11 % (0-9) Eosinophils (%) (Auto) 2 % (0-3) Basophils (%) (Auto) 0 % (0-3) Neutrophils # (Auto) 3.4 x10^3/uL (1.8-7.7) Lymphocytes # (Auto) 1.2 x10^3/uL (1.0-4.8) Monocytes # (Auto) 0.6 x10^3/uL (0.0-1.1) Eosinophils # (Auto) 0.1 x10^3/uL (0.0-0.7) Basophils # (Auto) 0.0 x10^3/uL (0.0-0.2) Sodium Level 141 mmol/L (136-145) Potassium Level 3.8 mmol/L (3.5-5.1) Chloride Level 107 mmol/L (98-107) Carbon Dioxide Level 22 mmol/L (21-32) Anion Gap 12 (6-14) Blood Urea Nitrogen 10 mg/dL (7-20) Creatinine 0.6 mg/dL (0.6-1.0) Estimated GFR (Cockcroft-Gault) 104.6 BUN/Creatinine Ratio 17 (6-20) Glucose Level 128 mg/dL (70-99) Calcium Level 8.3 mg/dL (8.5-10.1) Total Bilirubin 1.4 mg/dL (0.2-1.0) Aspartate Amino Transf (AST/SGOT) 298 U/L (15-37) Alanine Aminotransferase (ALT/SGPT) 203 U/L (14-59) Alkaline Phosphatase 409 U/L (46-116) Total Protein 6.2 g/dL (6.4-8.2) Albumin 2.6 g/dL (3.4-5.0) Albumin/Globulin Ratio 0.7 (1.0-1.7) Test 02/15/21 10:59 SARS-CoV-2 Antigen (Rapid) Negative (NEGATIVE) Assessment/Plan Assessment/Plan Assessment: Metastatic breast cancer, ER positive, HER-2 positive Pleural effusion, likely malignant Pericardial effusion, undetermined etiology but potentially malignant Dyspnea at rest secondary to pulmonary hypertension Pulmonary hypertension of unclear etiology: Differential includes restrictive reactive physiology Abnormal LFTs, likely secondary to liver metastasis Recommendations: -Continue evaluation of findings of CTA and echocardiogram per pulmonology and cardiology service -Unclear at this time is to the extent of which pulmonary metastatic disease is contributing to dyspnea -Would plan on seeing her in the office post hospital discharge to initiate palliative systemic therapy. Given young age and good performance status she has multiple treatment options available with estimated life expectancy of several years -As per primary service -We will follow Francisco Lyman MD Medical Oncology/Hematology Ph: [phone] LESA LYMAN MD Feb 15, 2021 12:56
[2021-02-15] MEDS ORDERED: ADENOSINE 90 MG in IV NORMAL SALINE 50ML 90 ML IV ONE (13:00)
[2021-02-15] MEDS ORDERED: IV NORMAL SALINE 500ML BAG 500 ML IV ONE (13:00)
--- NOTE | 2021-02-15 13:01 | NUR ---
SS following for discharge planning. SS reviewed pt chart and discussed with pt RN. Pt is from home with spouse and is currently requiring oxygen at two liters nasal canula. Cardiology, Pulmonology, and Oncology consulted. SS will continue to follow for discharge planning.
--- NOTE | 2021-02-15 14:00 | PDOC ---
[employer] PROGRESS NOTE Date of Service DOS: DATE: 02/15/21 TIME: 14:01 Chief Complaint Chief Complaint worsening shortness of breath with hypoxia, pulmonary hypertension, new, poss secondary, concern for restrictive cardio disease metastatic breast cancer, s/p Bilat masectomy and radiation, now on adjuvant therapy with Arimidex History of Present Illness History of Present Illness echo yesterday was very different than the month before, right heart now dilated, marked pulm htn, right heart cath today Dr. Clifton discussed with me at [facility], I also talked to CV consult team, pt is in good spirits, still weak and dyspneic Vitals/I&O Vitals/I&O: Vital Signs Date Time Temp Pulse Resp B/P (MAP) Pulse Ox O2 Delivery O2 Flow Rate FiO2 02/15/21 11:00 97.7 111 16 94/75 (81) 95 Nasal Cannula 2.0 97.7 I & O 02/14/21 02/14/21 02/15/21 14:57 22:57 06:57 Intake Total 100 ml Balance 100 ml Physical Exam General: Alert, Oriented X3 Heart: Regular rate Abdomen: Normal bowel sounds Extremities: No clubbing Skin: No rashes Labs Labs: Laboratory Tests Test 02/14/21 15:30 02/14/21 19:00 02/15/21 06:45 02/15/21 10:59 Lactic Acid Level 2.2 mmol/L (0.4-2.0) Troponin I Quantitative 0.122 ng/mL (0.000-0.055) 0.131 ng/mL (0.000-0.055) White Blood Count 5.3 x10^3/uL (4.0-11.0) Red Blood Count 4.47 x10^6/uL (3.50-5.40) Hemoglobin 13.1 g/dL (12.0-15.5) Hematocrit 39.8 % (36.0-47.0) Mean Corpuscular Volume 89 fL (79-100) Mean Corpuscular Hemoglobin 29 pg (25-35) Mean Corpuscular Hemoglobin Concent 33 g/dL (31-37) Red Cell Distribution Width 13.9 % (11.5-14.5) Platelet Count 122 x10^3/uL (140-400) Neutrophils (%) (Auto) 65 % (31-73) Lymphocytes (%) (Auto) 22 % (24-48) Monocytes (%) (Auto) 11 % (0-9) Eosinophils (%) (Auto) 2 % (0-3) Basophils (%) (Auto) 0 % (0-3) Neutrophils # (Auto) 3.4 x10^3/uL (1.8-7.7) Lymphocytes # (Auto) 1.2 x10^3/uL (1.0-4.8) Monocytes # (Auto) 0.6 x10^3/uL (0.0-1.1) Eosinophils # (Auto) 0.1 x10^3/uL (0.0-0.7) Basophils # (Auto) 0.0 x10^3/uL (0.0-0.2) Sodium Level 141 mmol/L (136-145) Potassium Level 3.8 mmol/L (3.5-5.1) Chloride Level 107 mmol/L (98-107) Carbon Dioxide Level 22 mmol/L (21-32) Anion Gap 12 (6-14) Blood Urea Nitrogen 10 mg/dL (7-20) Creatinine 0.6 mg/dL (0.6-1.0) Estimated GFR (Cockcroft-Gault) 104.6 BUN/Creatinine Ratio 17 (6-20) Glucose Level 128 mg/dL (70-99) Calcium Level 8.3 mg/dL (8.5-10.1) Total Bilirubin 1.4 mg/dL (0.2-1.0) Aspartate Amino Transf (AST/SGOT) 298 U/L (15-37) Alanine Aminotransferase (ALT/SGPT) 203 U/L (14-59) Alkaline Phosphatase 409 U/L (46-116) Total Protein 6.2 g/dL (6.4-8.2) Albumin 2.6 g/dL (3.4-5.0) Albumin/Globulin Ratio 0.7 (1.0-1.7) SARS-CoV-2 Antigen (Rapid) Negative (NEGATIVE) Review of Systems Review of Systems: short of breath, weak secondary Assessment and Plan Assessmemt and Plan Problems Medical Problems: (1) Pericardial effusion, acute Status: Acute (2) Shortness of breath Status: Acute (3) Tachycardia Status: Acute Comment Review of Relevant I have reviewed the following items ash (where applicable) has been applied. Medications: Current Medications Medications (Trade) Dose Ordered Sig/Tita Route PRN Reason Start Time Stop Time Status Last Admin Dose Admin Anastrozole (Arimidex) 1 mg DAILY PO 02/15/21 09:00 02/15/21 08:33 Pantoprazole Sodium (Protonix) 40 mg DAILYAC PO 02/15/21 07:30 02/15/21 08:29 Anastrozole (Arimidex) 1 mg 1X ONCE PO 02/14/21 19:30 02/14/21 19:31 DC 02/14/21 19:27 Enoxaparin Sodium (Lovenox 60mg Syringe) 60 mg 1X ONCE SQ 02/15/21 06:00 02/15/21 06:01 DC 02/15/21 06:00 Iohexol (Omnipaque 350 Mg/ml) 100 ml 1X ONCE IV 02/15/21 06:00 02/15/21 06:01 DC 02/15/21 06:18 Heparin Sodium/ Sodium Chloride (HEPARIN for ARTERIAL LINE FLUSH) 1,000 unit 1X ONCE IART 02/15/21 12:30 02/15/21 12:32 DC 02/15/21 13:03 Lidocaine HCl (Lidocaine 1% 20ml Vial) 20 ml 1X ONCE INJ 02/15/21 12:30 02/15/21 12:32 DC 02/15/21 13:04 Adenosine 90 mg/ Sodium Chloride 120 ml @ 0 mls/hr 1X ONCE IV 02/15/21 13:00 02/15/21 13:01 DC 02/15/21 13:06 Sodium Chloride 500 ml @ 500 mls/hr 1X ONCE IV 02/15/21 13:00 02/15/21 13:59 02/15/21 13:06 Justifications for Admission Other Justification ALISTAIR ASIF MD Feb 15, 2021 14:00
--- NOTE | 2021-02-15 14:51 | CARD ---
MR#: [id number] Date of Study: 02/15/2021 Ordering Physician: LACY EWING, Referring Physician: LACY EWING, Tech: RT Darrell(R) APPROVED REPORT Technologist: Puja Ogden RT(R) Nurse: Samara Nagel RN Procedure(s) performed: NO MODERATE SEDATION GIVEN FT.0.0 MIN DOSE [id number] RHC CASE TECHNIQUE IV conscious sedation was used throughout procedure with appropriate monitoring and was performed in the presence of a registered nurse who was an independent trained observer other than the physician p erforming the procedure. During this case, Fluoroscopy and no contrast were used for imaging. Specime n(s) Removed: N/A Estimated Blood loss: 5 cc's. PROCEDURE NARRATIVE Clinical information: 55-year-old woman with a past history of metastatic breast cancer who presented to the hospital in th e setting of exertional dyspnea and chest pain. A echocardiogram done approximately 1 month prior di d not reveal any significant pathology but a CT scan and PET study for evaluation of her cancer 3 day s ago revealed a apical pericardial effusion. Due to concern for possible tamponade physiology she w as admitted to the hospital. Her repeat echocardiogram revealed severe RV dilation and RV dysfunctio n and there was concern for possible pulmonary embolus given her malignancy history but her CT scan d id not reveal any large vessel occlusive disease. After discussion with the pulmonary service a deci tasha was made to rule out any significant pulmonary hypertension which appears to be subacute in natu re as her previous echocardiogram did not reveal any significant pulmonary hypertension. Procedure details: Under 1% lidocaine local anesthesia and ultrasound guidance a 5 Hebrew sheath was placed in the right internal jugular vein via the modified Seldinger technique using an 18-gauge needle and a J-tip Yapta. Next, a 5 Hebrew PA catheter was advanced to the right heart chambers and pressures and satur ations were obtained. A vasodilator study was also performed to determine any vasoreactivity. Findings: RA 2 mmHg RV 56/0/5 PA 56/23/37 Wedge 7 mmHg PA saturation 67.3, FA saturation 97 Yordy cardiac output 3.5 L/min, cardiac index 2.1 Intravenous adenosine was infused in an escalating fashion up to 200 mcg/kg/min. The mean pulmonary artery systolic pressure decreased from 37 to 34 mmHg without any significant changes to cardiac outp ut with a repeat PA saturation of 73%. Overall, these results would be consistent with negative vaso reactivity test. At case completion the PA catheter and sheath were removed and hemostasis was achieved with manual co mpression. No acute complications noted. Conclusion 1. Normal biventricular filling pressures 2. Moderate pulmonary hypertension, mean PA 37 mmHg without any significant vasoreactivity on vasodi lator testing 3. Normal cardiac output 4. No evidence of cardiac tamponade Recommendations Aggressive Medical Therapy Signed by : Lacy Ewing, Electronically Approved : 02/15/2021 14:50:52
[2021-02-15] MEDS: ZOLPIDEM 5 MG TABLET. PO SCH (20:47)
[2021-02-16] VITALS (7 sets, daily range): BP systolic 96–118; BP diastolic 70–89
[2021-02-16] MEDS: ACETAMINOPHEN 325 MG TABLET. PO SCH ×4 (04:59→18:00)
[2021-02-16] MEDS: PANTOPRAZOLE 40 MG TABLET.DR. PO SCH (09:12)
[2021-02-16] MEDS: ANASTROZOLE 1 MG TABLET PO SCH (09:23)
--- NOTE | 2021-02-16 09:53 | PDOC ---
PULMONARY PROGRESS NOTES DATE: 02/16/21 TIME: 09:51 Subjective no increase soa s/p right cath 02/15 Vitals Vital Signs Date Time Temp Pulse Resp B/P (MAP) Pulse Ox O2 Delivery O2 Flow Rate FiO2 02/16/21 07:00 98.1 108 20 96/70 (79) 90 Nasal Cannula 2.0 98.1 General: Alert, No acute distress Lungs: Other (decrease right base) Cardiovascular: S1 Abdomen: Soft Neuro Exam: Alert Extremities: No Edema Skin: Warm Labs Laboratory Tests Test 02/14/21 11:55 02/14/21 13:55 02/14/21 15:30 02/14/21 19:00 White Blood Count 4.1 x10^3/uL (4.0-11.0) Red Blood Count 4.84 x10^6/uL (3.50-5.40) Hemoglobin 14.1 g/dL (12.0-15.5) Hematocrit 43.5 % (36.0-47.0) Mean Corpuscular Volume 90 fL (79-100) Mean Corpuscular Hemoglobin 29 pg (25-35) Mean Corpuscular Hemoglobin Concent 32 g/dL (31-37) Red Cell Distribution Width 13.9 % (11.5-14.5) Platelet Count 132 x10^3/uL (140-400) Neutrophils (%) (Auto) 70 % (31-73) Lymphocytes (%) (Auto) 18 % (24-48) Monocytes (%) (Auto) 11 % (0-9) Eosinophils (%) (Auto) 1 % (0-3) Basophils (%) (Auto) 0 % (0-3) Neutrophils # (Auto) 2.9 x10^3/uL (1.8-7.7) Lymphocytes # (Auto) 0.7 x10^3/uL (1.0-4.8) Monocytes # (Auto) 0.4 x10^3/uL (0.0-1.1) Eosinophils # (Auto) 0.0 x10^3/uL (0.0-0.7) Basophils # (Auto) 0.0 x10^3/uL (0.0-0.2) Prothrombin Time 14.0 SEC (11.7-14.0) Prothromb Time International Ratio 1.1 (0.8-1.1) Activated Partial Thromboplast Time 38 SEC (24-38) Sodium Level 140 mmol/L (136-145) Potassium Level 4.2 mmol/L (3.5-5.1) Chloride Level 106 mmol/L (98-107) Carbon Dioxide Level 24 mmol/L (21-32) Anion Gap 10 (6-14) Blood Urea Nitrogen 13 mg/dL (7-20) Creatinine 0.8 mg/dL (0.6-1.0) Estimated GFR (Cockcroft-Gault) 75.0 BUN/Creatinine Ratio 16 (6-20) Glucose Level 192 mg/dL (70-99) Lactic Acid Level 2.5 mmol/L (0.4-2.0) 2.2 mmol/L (0.4-2.0) Calcium Level 8.7 mg/dL (8.5-10.1) Magnesium Level 2.0 mg/dL (1.8-2.4) Total Bilirubin 1.3 mg/dL (0.2-1.0) Aspartate Amino Transf (AST/SGOT) 259 U/L (15-37) Alanine Aminotransferase (ALT/SGPT) 205 U/L (14-59) Alkaline Phosphatase 421 U/L (46-116) Creatine Kinase 83 U/L (26-192) Creatine Kinase MB (Mass) 3.6 ng/mL (0.0-3.6) Creatine Kinase MB Relative Index 4.3 % (0-4) Troponin I Quantitative 0.110 ng/mL (0.000-0.055) 0.122 ng/mL (0.000-0.055) 0.131 ng/mL (0.000-0.055) MX-Psj-I-Type Natriuretic Peptide 1362 pg/mL (0-124) Total Protein 6.7 g/dL (6.4-8.2) Albumin 2.8 g/dL (3.4-5.0) Albumin/Globulin Ratio 0.7 (1.0-1.7) Procalcitonin 0.12 ng/mL (0.00-0.10) Thyroid Stimulating Hormone (TSH) 1.369 uIU/mL (0.358-3.74) Urine Collection Type Unknown Urine Color Dk yellow Urine Clarity Clear Urine pH 6.0 (<5.0-8.0) Urine Specific Parker 1.015 (1.000-1.030) Urine Protein Negative mg/dL (NEG-TRACE) Urine Glucose (UA) Negative mg/dL (NEG) Urine Ketones (Stick) Negative mg/dL (NEG) Urine Blood Negative (NEG) Urine Nitrite Negative (NEG) Urine Bilirubin Small (NEG) Urine Urobilinogen Dipstick 1.0 mg/dL (0.2 mg/dL) Urine Leukocyte Esterase Negative (NEG) Urine RBC 0 /HPF (0-2) Urine WBC Rare /HPF (0-4) Urine Squamous Epithelial Cells Few /LPF Urine Bacteria Few /HPF (0-FEW) Urine Mucus Slight /LPF Test 02/15/21 06:45 02/15/21 10:59 White Blood Count 5.3 x10^3/uL (4.0-11.0) Red Blood Count 4.47 x10^6/uL (3.50-5.40) Hemoglobin 13.1 g/dL (12.0-15.5) Hematocrit 39.8 % (36.0-47.0) Mean Corpuscular Volume 89 fL (79-100) Mean Corpuscular Hemoglobin 29 pg (25-35) Mean Corpuscular Hemoglobin Concent 33 g/dL (31-37) Red Cell Distribution Width 13.9 % (11.5-14.5) Platelet Count 122 x10^3/uL (140-400) Neutrophils (%) (Auto) 65 % (31-73) Lymphocytes (%) (Auto) 22 % (24-48) Monocytes (%) (Auto) 11 % (0-9) Eosinophils (%) (Auto) 2 % (0-3) Basophils (%) (Auto) 0 % (0-3) Neutrophils # (Auto) 3.4 x10^3/uL (1.8-7.7) Lymphocytes # (Auto) 1.2 x10^3/uL (1.0-4.8) Monocytes # (Auto) 0.6 x10^3/uL (0.0-1.1) Eosinophils # (Auto) 0.1 x10^3/uL (0.0-0.7) Basophils # (Auto) 0.0 x10^3/uL (0.0-0.2) Sodium Level 141 mmol/L (136-145) Potassium Level 3.8 mmol/L (3.5-5.1) Chloride Level 107 mmol/L (98-107) Carbon Dioxide Level 22 mmol/L (21-32) Anion Gap 12 (6-14) Blood Urea Nitrogen 10 mg/dL (7-20) Creatinine 0.6 mg/dL (0.6-1.0) Estimated GFR (Cockcroft-Gault) 104.6 BUN/Creatinine Ratio 17 (6-20) Glucose Level 128 mg/dL (70-99) Calcium Level 8.3 mg/dL (8.5-10.1) Total Bilirubin 1.4 mg/dL (0.2-1.0) Aspartate Amino Transf (AST/SGOT) 298 U/L (15-37) Alanine Aminotransferase (ALT/SGPT) 203 U/L (14-59) Alkaline Phosphatase 409 U/L (46-116) Total Protein 6.2 g/dL (6.4-8.2) Albumin 2.6 g/dL (3.4-5.0) Albumin/Globulin Ratio 0.7 (1.0-1.7) SARS-CoV-2 Antigen (Rapid) Negative (NEGATIVE) Laboratory Tests Test 02/15/21 10:59 SARS-CoV-2 Antigen (Rapid) Negative (NEGATIVE) Medications Active Scripts Medications Dose Route/Sig Max Daily Dose Days Date Category Zolpidem Tartrate 5 Mg Tablet 5 Mg PO PRN QHS PRN 02/14/21 Reported Nexium Capsule (Esomeprazole Magnesium) 40 Mg Capsule.dr 1 Cap PO DAILY 01/26/21 Reported Arimidex (Anastrozole) 1 Mg Tablet 1 Tab PO DAILY 30 01/26/21 Reported Impression . 1. Progressive dyspnea with acute hypoxic respiratory failure. This is likely secondary to combination of pulmonary hypertension, a small to moderate right sided pleural effusion and a small to moderate pericardial effusion. Likely, the effusions are metastatic. 2. The patient with breast cancer diagnosed in 2018, status post bilateral mastectomy and reconstruction surgery followed by chemo and radiation. Now has a highly abnormal PET scan suggestive of extensive bony metastasis. She also has suspected pleural and pericardial metastases in addition abnormal liver function test suggestive of possible hepatic metastasis as well.Mediastinal/ hilar adenopathy suggestive of Mets as well. 3. Pulmonary hypertension, moderate with a pulmonary artery systolic pressure of 63. There is evidence of dilatation of the pulmonary trunk on the CT chest. There is no evidence of pulmonary embolism. She has evidence of [id number] pericardial effusion. s/p right cath 4. No significant tobacco history. Plan . 1. I have discussed with Dr. Ewing and Dr. [place]. right heart catheterization report reviewed. No restrictive or tamponade physiology. Moderate Pulmonary HTN, likely primary. No vaso-reactivity 2. We can also consider doing thoracentesis to see if that makes a difference in her symptoms. 3. I will leave up to Cardiology regarding the need for any pericardiocentesis. At this time, it can be closely watched for any further increase. 4. Continue present oxygen. 5. Follow liver function test. 6. Follow Oncology recommendations. 7. Consider Pulmonary vasodilators as OP RONIT CHANCE MD Feb 16, 2021 09:53
--- NOTE | 2021-02-16 12:15 | PDOC ---
CESILIA SOLOMON [employer] 02/16/21 1215: CARDIO Progress Notes Date and Time Date of Service 02/16/21 Time of Evaluation 1210 Subjective Subjective: No Palpitations, Other (not more SOA ) Vitals Vitals Vital Signs Date Time Temp Pulse Resp B/P (MAP) Pulse Ox O2 Delivery O2 Flow Rate FiO2 02/16/21 10:54 97.4 118 18 116/87 (97) 91 Nasal Cannula 2.0 97.4 Weight Weight [ ] Input and Output Intake and Output Intake and Output 02/16/21 06:57 Intake Total 1231 ml Balance 1231 ml Intake Oral 1120 ml IV Total 111 ml # Voids 4 Microbiology Micro Microbiology 02/14/21 Blood Culture - Preliminary, Resulted NO GROWTH AFTER 1 DAY Physical Exam HEENT: Neck Supple W Full Motion Chest: Symmetric LUNGS: Other (diminished ) Heart: S1S2, RRR Abdomen: Soft N/T Extremities: No Edema Neurology: alert, oriented, follow commands Assessment Assessment 1. Dyspnea with moderate right pleural effusion and moderate to severe pulmonary HTN. RHC with normal filling pressures. 2. Small pericardial effusion; no hemodynamic compromise. Echo also noted with severely dilated RV. CTA negative for PE 3. Breast CA s/p bilateral mastectomy and chemo/radiation. Recent PET with evidence of metastatic disease 4. Transaminitis 5 Lactic acidosis 6. GERD Recommendations Thoracentesis today Will scheduled outpatient echo in 2 weeks to ensure stability of pericardial effusion Supportive care from a CV standpoint Justicifation of Admission Dx: Justifications for Admission: Justification of Admission Dx: Yes Comments: pericardial effusion, pleural effusion LACY HENRIQUEZ MD 02/17/21 0914: CARDIO Progress Notes Plan Plan Late entry for 02/16/2021 Patient seen and examined. Agree with above nurse practitioner note. Case discussed with hematology/oncology service and pulmonary service. Agree with thoracentesis. We will reassess for pericardial effusion in 2 weeks after initiation of chemotherapy. CESILIA SOLOMON APRN Feb 16, 2021 12:15 LACY HENRIQUEZ MD Feb 17, 2021 09:14
--- NOTE | 2021-02-16 13:11 | NUR ---
Pt to IR for R thoracentesis, pt monitored throughout, VSS. Dressing in place. EMMY RN
--- NOTE | 2021-02-16 13:35 | PDOC ---
[employer] PROGRESS NOTE Date of Service DOS: DATE: 02/16/21 TIME: 13:34 Chief Complaint Chief Complaint worsening shortness of breath with hypoxia, pulmonary hypertension, new, poss secondary, concern for restrictive cardio disease metastatic breast cancer, s/p Bilat masectomy and radiation, now on adjuvant therapy with Arimidex History of Present Illness History of Present Illness echo yesterday shows cor pulmonale, unsure of cause will try thoracentesis today, right heart cath done yesterday, CV and pulm following pt is in good spirits, still weak and dyspneic Vitals/I&O Vitals/I&O: Vital Signs Date Time Temp Pulse Resp B/P (MAP) Pulse Ox O2 Delivery O2 Flow Rate FiO2 02/16/21 13:15 118 16 104/75 (85) 92 Nasal Cannula 02/16/21 13:00 2.0 02/16/21 10:54 97.4 97.4 I & O 02/15/21 02/15/21 02/16/21 15:00 23:00 07:00 Intake Total 240 ml 691 ml 300 ml Balance 240 ml 691 ml 300 ml Physical Exam General: Alert, Oriented X3 Heart: Regular rate Lungs: Other (decrease right base) Abdomen: Normal bowel sounds Extremities: No clubbing Skin: No rashes Assessment and Plan Assessmemt and Plan Problems Medical Problems: (1) Pericardial effusion, acute Status: Acute (2) Shortness of breath Status: Acute (3) Tachycardia Status: Acute Comment Review of Relevant I have reviewed the following items ash (where applicable) has been applied. Medications: Current Medications Medications (Trade) Dose Ordered Sig/Tita Route PRN Reason Start Time Stop Time Status Last Admin Dose Admin Zolpidem Tartrate (Ambien) 5 mg HS PO 02/15/21 21:00 02/15/21 20:47 Justifications for Admission Other Justification ALISTAIR ASIF MD Feb 16, 2021 13:35
--- NOTE | 2021-02-16 14:14 | NUR ---
SS following up with discharge planning. SS reviewed pt chart and discussed with pt RN. Pt is currently requiring oxygen at two liters nasal canula. COVID19 negative. Pt had clean heart cath on 02/15/2021. Pt having thoracentesis today. Discharge plan is currently to home when medically ready. SS will continue to follow for discharge planning.
--- NOTE | 2021-02-16 14:45 | RAD ---
Ultrasound Guided Thoracentesis, right side Indication: Adult female with right pleural effusion Sedation: Local anesthesia only. Sterility: The procedure was performed in its entirety using appropriate elements of sterile technique. Technique and Findings: Following informed consent, the patient was prepped and draped in the usual sterile fashion. Ultrasound interrogation of the area of interest was performed revealing the presence of a pleural fluid collection. 1% Lidocaine was used to achieve local anesthesia over the area of interest. A small dermatotomy was made and a 5F [id number] catheter was advanced under ultrasound guidance into the pleural space and 700 cc's of thin triston fluid was removed. The catheter was then removed and hemostasis was achieved with manual compression. Impression: US thoracentesis as described.
[2021-02-16] MEDS ORDERED: oxyCODONE/APAP 5/325 1 TAB TABLET PO PRN (16:15)
[2021-02-16] MEDS: ZOLPIDEM 5 MG TABLET. PO SCH (21:55)
[2021-02-17] MEDS: ACETAMINOPHEN 325 MG TABLET. PO SCH ×5 (05:49→22:53)
[2021-02-17] MEDS: PANTOPRAZOLE 40 MG TABLET.DR. PO SCH (05:50)
[2021-02-17 07:00] VITALS: BP 108/83
--- NOTE | 2021-02-17 08:37 | PDOC ---
PROGRESS NOTES Date of Service DATE: 02/17/21 TIME: 08:32 Subjective Subjective Received thoracentesis on 02/16/2021. Received right heart catheterization on 02/15/2021. Reports improved shortness of breath since then. No additional events at the time. Objective Objective Vital Signs Date Time Temp Pulse Resp B/P (MAP) Pulse Ox O2 Delivery O2 Flow Rate FiO2 02/17/21 07:00 98.2 112 21 108/83 (91) 89 Nasal Cannula 2.0 98.2 Intake and Output 02/17/21 07:00 Intake Total 680 ml Output Total 700 ml Balance -20 ml Intake Oral 680 ml Output Drainage Total 700 ml # Voids 7 Physical Exam Physical Exam General: Awake, alert, no distress Head: Atraumatic, no conjunctival icterus, normal oral cavity mucosa Neck: Supple, no lymphadenopathy Chest: No trauma noted Cardiovascular: Regular rhythm, normal rate, no murmurs Respiratory: Bilateral air entry noted, lungs clear to auscultation bilaterally. No accessory muscle use Abdominal: Abdomen is soft, nontender, nondistended. Bowel sounds were normal. No hepatomegaly or splenomegaly Musculoskeletal: No deformity noted Extremities: No edema noted Skin: No rash or lesions Neurologic: Alert and oriented x3, no grossly evident neurologic deficits noted. Full neurological exam was not performed Psychiatric: Appropriate mood and affect Assessment Assessment Metastatic breast cancer, ER positive, HER-2 positive Pleural effusion, likely malignant Pericardial effusion, undetermined etiology but potentially malignant Dyspnea at restn Pulmonary hypertension of unclear etiology: Differential includes restrictive pericarditis versus pulmonary lymphangitic spread of disease Abnormal LFTs, likely secondary to liver metastasis Plan Plan of Care -Continue management of dyspnea per cardiology and pulmonology service. Etiology is undetermined at this point -Unclear at this time is to the extent of which pulmonary metastatic disease is contributing to dyspnea -Would plan on seeing her in the office post hospital discharge to initiate palliative systemic therapy. Given young age and good performance status she has multiple treatment options available with estimated life expectancy of sever al years. Would plan on palliative chemotherapy with docetaxel, trastuzumab and Pertuzumab administered every 3 weeks for 4-6 cycles followed by trastuzumab and Pertuzumab maintenance therapy -Given plans to begin chemotherapy NAZ I recommended port placement while inpatient if feasible. She was agreeable to this. We will place orders for port placement in IR. -Other management per primary service -We will follow Francisco Lyman MD Medical Oncology/Hematology Comment Review of Relevant I have reviewed the following items ash (where applicable) has been applied. Labs Laboratory Tests Test 02/15/21 10:59 Coronavirus (PCR) Not detected (Not Detected) SARS-CoV-2 Antigen (Rapid) Negative (NEGATIVE) Microbiology 02/16/21 Gram Stain - Final, Resulted 02/16/21 Aerobic and Anaerobic Culture, Resulted Pending 02/14/21 Blood Culture - Preliminary, Resulted NO GROWTH AFTER 2 DAYS Medications Current Medications Morphine Sulfate (Morphine Sulfate) 4 mg PRN Q15MIN PRN IV/SQ PAIN GREATER THAN 3/10; Start 02/14/21 at 11:30; Stop 02/14/21 at 19:23; Status DC Ondansetron HCl (Zofran) 4 mg PRN Q8HRS PRN IV NAUSEA/VOMITING; Start 02/14/21 at 14:00; Stop 02/15/21 at 13:59; Status DC Morphine Sulfate (Morphine Sulfate) 2 mg PRN Q2HR PRN IV PAIN; Start 02/14/21 at 14:00; Stop 02/15/21 at 13:59; Status DC Acetaminophen (Tylenol) 650 mg PRN Q4HRS PRN PO FEVER > 100.3'F Last administered on 02/14/21at 21:19; Start 02/14/21 at 14:00; Stop 02/15/21 at 13:59; Status DC Acetaminophen (Tylenol) 325 mg Q6HRS PO Last administered on 02/17/21at 05:49; Start 02/14/21 at 18:00 Anastrozole (Arimidex) 1 mg DAILY PO Last administered on 02/16/21at 09:23; Start 02/15/21 at 09:00 Pantoprazole Sodium (Protonix) 40 mg DAILYAC PO Last administered on 02/17/21at 05:50; Start 02/15/21 at 07:30 Non-Formulary Medication (Melatonin ) 1 tab QHS PO ; Start 02/14/21 at 21:00; Status UNV Zolpidem Tartrate (Ambien) 5 mg PRN QHS PRN PO INSOMNIA; Start 02/14/21 at 15:15 Anastrozole (Arimidex) 1 mg 1X ONCE PO Last administered on 02/14/21at 19:27; Start 02/14/21 at 19:30; Stop 02/14/21 at 19:31; Status DC Enoxaparin Sodium (Lovenox 60mg Syringe) 60 mg 1X ONCE SQ Last administered on 02/15/21at 06:00; Start 02/15/21 at 06:00; Stop 02/15/21 at 06:01; Status DC Iohexol (Omnipaque 350 Mg/ml) 100 ml 1X ONCE IV Last administered on 02/15/21at 06:18; Start 02/15/21 at 06:00; Stop 02/15/21 at 06:01; Status DC Info (CONTRAST GIVEN -- Rx MONITORING) 1 each PRN DAILY PRN MC SEE COMMENTS; Start 02/15/21 at 06:00; Stop 02/17/21 at 05:59; Status DC Zolpidem Tartrate (Ambien) 5 mg HS PO Last administered on 02/16/21at 21:55; Start 02/15/21 at 21:00 Lidocaine HCl (Lidocaine 1% 20ml Vial) 20 ml STK-MED ONCE .ROUTE ; Start 02/15/21 at 11:44; Stop 02/15/21 at 11:45; Status DC Heparin Sodium/ Sodium Chloride 1,000 ml @ As Directed STK-MED ONCE .ROUTE ; Start 02/15/21 at 11:44; Stop 02/15/21 at 11:45; Status DC Iodixanol (Visipaque 320) 100 ml STK-MED ONCE .ROUTE ; Start 02/15/21 at 11:48; Stop 02/15/21 at 11:48; Status DC Fentanyl Citrate (Fentanyl 2ml Vial) 100 mcg STK-MED ONCE .ROUTE ; Start 02/15/21 at 11:53; Stop 02/15/21 at 11:53; Status DC Midazolam HCl (Versed) 2 mg STK-MED ONCE .ROUTE ; Start 02/15/21 at 12:10; Stop 02/15/21 at 12:10; Status DC Heparin Sodium/ Sodium Chloride (HEPARIN for ARTERIAL LINE FLUSH) 1,000 unit 1X ONCE IART Last administered on 02/15/21at 13:03; Start 02/15/21 at 12:30; Stop 02/15/21 at 12:32; Status DC Lidocaine HCl (Lidocaine 1% 20ml Vial) 20 ml 1X ONCE INJ Last administered on 02/15/21at 13:04; Start 02/15/21 at 12:30; Stop 02/15/21 at 12:32; Status DC Adenosine (Adenoscan) 90 mg STK-MED ONCE IV ; Start 02/15/21 at 12:38; Stop 02/15/21 at 12:38; Status DC Adenosine 90 mg/ Sodium Chloride 120 ml @ 0 mls/hr 1X ONCE IV Last administered on 02/15/21at 13:06; Start 02/15/21 at 13:00; Stop 02/15/21 at 13:01; Status DC Sodium Chloride 500 ml @ 500 mls/hr 1X ONCE IV Last administered on 02/15/21at 13:06; Start 02/15/21 at 13:00; Stop 02/15/21 at 13:59; Status DC Oxycodone/ Acetaminophen (Percocet 5/325) 1 tab PRN Q4HRS PRN PO PAIN Last administered on 02/16/21at 16:19; Start 02/16/21 at 16:15 Active Scripts Active Reported Zolpidem Tartrate 5 Mg Tablet 5 Mg PO PRN QHS PRN Nexium Capsule (Esomeprazole Magnesium) 40 Mg Capsule.dr 1 Cap PO DAILY Arimidex (Anastrozole) 1 Mg Tablet 1 Tab PO DAILY 30 Days Vitals/I & O Vital Sign - Last 24 Hours 02/16/21 02/16/21 02/16/21 02/16/21 10:54 13:00 13:15 15:00 Temp 97.4 98.0 97.4 98.0 Pulse 118 114 118 112 Resp 18 14 16 22 B/P (MAP) 116/87 (97) 104/75 (85) 104/75 (85) 118/89 (99) Pulse Ox 91 97 92 95 O2 Delivery Nasal Cannula Nasal Cannula Nasal Cannula Nasal Cannula O2 Flow Rate 2.0 2.0 2.0 02/16/21 02/16/21 02/16/21 02/16/21 16:19 17:19 19:54 20:10 Temp 98.2 98.2 Pulse 102 Resp 22 B/P (MAP) 100/70 (80) Pulse Ox 95 94 O2 Delivery Nasal Cannula Nasal Cannula Nasal Cannula Nasal Cannula O2 Flow Rate 2.0 2.0 2.0 2.0 02/16/21 02/17/21 02/17/21 22:58 02:40 07:00 Temp 98.2 98.2 98.2 98.2 Pulse 102 94 112 Resp 21 B/P (MAP) 102/76 (85) 108/83 (91) Pulse Ox 96 89 O2 Delivery Nasal Cannula Nasal Cannula O2 Flow Rate 2.0 2.0 Intake and Output0 02/16/21 02/16/21 02/17/21 15:00 23:00 07:00 Intake Total 480 ml 200 ml Output Total 700 ml Balance -220 ml 200 ml Justifications for Admission Other Justification LESA LYMAN MD Feb 17, 2021 08:37
[2021-02-17] MEDS: ANASTROZOLE 1 MG TABLET PO SCH (08:55)
--- NOTE | 2021-02-17 10:20 | NUR ---
SS following up with discharge planning. SS reviewed pt chart and discussed with pt RN. Pt is currently on room air. COVID19 negative. Pt had clean heart cath on 02/15/2021 and Thoracentesis on 02/16/2021. PT/OT ordered. GI consulted. Port placement ordered by oncology. Pt wanting to return to home at discharge. SS will continue to follow for discharge planning.
--- NOTE | 2021-02-17 10:22 | PDOC ---
JUANITOCESILIA PLATE CORRECTOR 02/17/21 1022: CARDIO Progress Notes Date and Time Date of Service 02/17/21 Time of Evaluation 1040 Subjective Subjective: No Palpitations, Other (SOA slightly better ) Vitals Vitals Vital Signs Date Time Temp Pulse Resp B/P (MAP) Pulse Ox O2 Delivery O2 Flow Rate FiO2 02/17/21 07:00 98.2 112 21 108/83 (91) 89 Nasal Cannula 2.0 98.2 Weight Weight [ ] Input and Output Intake and Output Intake and Output 02/17/21 07:00 Intake Total 680 ml Output Total 700 ml Balance -20 ml Intake Oral 680 ml Output Drainage Total 700 ml # Voids 7 Microbiology Micro Microbiology 02/16/21 Gram Stain - Final, Resulted 02/16/21 Aerobic and Anaerobic Culture - Preliminary, Resulted 02/14/21 Blood Culture - Preliminary, Resulted NO GROWTH AFTER 2 DAYS Physical Exam HEENT: Neck Supple W Full Motion Chest: Symmetric LUNGS: Other (diminished ) Heart: S1S2, RRR (SR/ST) Abdomen: Soft N/T Extremities: No Edema Neurology: alert, oriented, follow commands Assessment Assessment 1. Dyspnea with moderate right pleural effusion and moderate to severe pulmonary HTN. RHC with normal filling pressures. S/p thoracentesis with 700 cc removed 2. Small pericardial effusion; no hemodynamic compromise. Echo also noted with severely dilated RV. CTA negative for PE 3. Breast CA s/p bilateral mastectomy and chemo/radiation. Recent PET with evidence of metastatic disease. Port to be placed with plans for initiation of outpatient chemo 4. Transaminitis 5 Lactic acidosis 6. GERD Recommendations Outpatient echo in 2 weeks as arranged Follow up with Dr. Henriquez as scheduled Supportive care from a CV standpoint Justicifation of Admission Dx: Justifications for Admission: Justification of Admission Dx: Yes LACY HENRIQUEZ MD 02/17/21 1456: CARDIO Progress Notes Plan Plan The patient was seen and interviewed as well as examined at the bedside. The chart was reviewed. The case was discussed. Agree with the plan of care. CESILIA SOLOMON APRN Feb 17, 2021 10:22 LACY HENRIQUEZ MD Feb 17, 2021 14:56
[2021-02-17 11:00] VITALS: BP 83/66
--- NOTE | 2021-02-17 12:01 | PDOC ---
PULMONARY PROGRESS NOTES DATE: 02/17/21 TIME: 11:58 Subjective no increase soa s/p right cath 02/15 s/p right thoracentesis 02/16, 700 cc removed Vitals Vital Signs Date Time Temp Pulse Resp B/P (MAP) Pulse Ox O2 Delivery O2 Flow Rate FiO2 02/17/21 07:00 98.2 112 21 108/83 (91) 89 Nasal Cannula 2.0 98.2 General: Alert, No acute distress Lungs: Other (decrease right base) Cardiovascular: S1 Abdomen: Soft Neuro Exam: Alert Extremities: No Edema Skin: Warm Medications Active Scripts Medications Dose Route/Sig Max Daily Dose Days Date Category Zolpidem Tartrate 5 Mg Tablet 5 Mg PO PRN QHS PRN 02/14/21 Reported Nexium Capsule (Esomeprazole Magnesium) 40 Mg Capsule.dr 1 Cap PO DAILY 01/26/21 Reported Arimidex (Anastrozole) 1 Mg Tablet 1 Tab PO DAILY 30 01/26/21 Reported Impression . 1. Progressive dyspnea with acute hypoxic respiratory failure. This is likely secondary to combination of pulmonary hypertension, a small to moderate right sided pleural effusion and a small to moderate pericardial effusion. Likely, the effusions are metastatic. 2. The patient with breast cancer diagnosed in 2018, status post bilateral mastectomy and reconstruction surgery followed by chemo and radiation. Now has a highly abnormal PET scan suggestive of extensive bony metastasis. She also has suspected pleural and pericardial metastases in addition abnormal liver function test suggestive of possible hepatic metastasis as well.Mediastinal/ hilar adenopathy suggestive of Mets as well. 3. Pulmonary hypertension, moderate with a pulmonary artery systolic pressure of 63. There is evidence of dilatation of the pulmonary trunk on the CT chest. There is no evidence of pulmonary embolism. She has evidence of [id number]-[id number]-pdyglfty pericardial effusion. s/p right cath 4. No significant tobacco history. Plan . 1. I have discussed with Dr. Ewing and Dr. Canada. right heart catheterization report reviewed. No restrictive or tamponade physiology. Moderate Pulmonary HTN, likely primary. No vaso-reactivity 2. s/p right thoracentesis 02/16, 700 cc removed, ? any sig improvement 3. d/w Cardiology regarding the need for f/u echo in 1 week and assess for any pericardiocentesis.she may need thoracic surgery consult At this time, it can be closely watched for any further increase. 4. Continue present oxygen. 5. Follow liver function test. 6. Follow Oncology recommendations. 7. Consider Pulmonary vasodilators as OP RONIT CHANCE MD Feb 17, 2021 12:01
--- NOTE | 2021-02-17 12:05 | PDOC2 ---
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 H/o chemo, bilateral mastectomy w/ reconstruction, and radiation in 2018. Recent lymph node biopsy showed poorly differentiated adenocarcinoma and recent PET scan showed extensive osseous mets, jodie mets in chest and lower left neck, right pleural effusion, pericardial effusion, and asymmetric increased uptake in left hepatic lobe compared w/ right. Admitted w/ SOA, followed by cardiology, pulmonology, and oncology. S/p thoracentesis and cardiac cath, plans for port placement for palliative chemo. For epigastric pain and h/o gastric intestinal metaplasia and FH of gastric cancer, she underwent EGD w/ Dr. Quispe on 01/28/21 which showed normal esophagus, chronic gastritis, and normal duodenum. Biopsies from antrum showed mild-mod chronic gastritis w/ focal intestinal metaplasia gastric body and fundus biopsies showed superficial congestion and slight chronic inflammation. There was no evidence of H. pylori, dysplasia, or malignancy. H/o GERD previously on Nexium, now takes OTC acid director talent PRN. Lately has had early satiety and some globus, also reports smaller more frequent stools. No n/v, abd pain, diarrhea, hematochezia, or melena. Probably has lost some weight. Reports normal colonoscopy at age 52 either at or [facility]. No GB, liver, pancreas, or PUD history. PMH: PMH: per HPI anxiety, hemorrhoids FH: Family History: Cancer (father - pancreatic, mother - gastric, sister - breas) Social History: Smoke: No ALCOHOL: none Drugs: None ROS: GEN: Denies fevers, chills, sweats HEENT: Denies blurred vision, sore throat CV: Denies chest pain RESP: +SOA GI: Per HPI : Denies hematuria, dysuria ENDO: Denies weight changes NEURO: Denies confusion, dizziness MSK: Denies weakness, joint pain/swelling SKIN: Denies jaundice, pruritus Vitals: Vitals: Vital Signs Date Time Temp Pulse Resp B/P (MAP) Pulse Ox O2 Delivery O2 Flow Rate FiO2 02/17/21 07:00 98.2 112 21 108/83 (91) 89 Nasal Cannula 2.0 98.2 Labs: Labs: GRAM STAIN Final Final NO ORGANISMS SEEN. SQUAMOUS EPI CELL:NOT APPLICABLE PMN (WBCs):NONE SEEN Unless otherwise specified, Testing Performed by: [facility] [address] [place] [address] For Inquires, the Physician may contact the Microbiology department at [phone] ANAEROBIC-AEROBIC CULTURE Preliminary Preliminary No Growth on 02/17/21 at 0847 Unless otherwise specified, Testing Performed by: [address] [address] For Inquires, the Physician may contact the Microbiology department at [phone] BLOOD CULTURE Preliminary NO GROWTH AFTER 3 DAYS Allergies: Coded Allergies: No Known Drug Allergies (Unverified , 01/28/21) Medications: Current Medications Medications (Trade) Dose Ordered Sig/Tita Route PRN Reason Start Time Stop Time Status Last Admin Dose Admin Oxycodone/ Acetaminophen (Percocet 5/325) 1 tab PRN Q4HRS PRN PO PAIN 02/16/21 16:15 02/16/21 16:19 Imaging: Imaging: Thoracentesis 02/16 700 ccs of thin triston fluid was removed Chest CTA 02/15 IMPRESSION: 1. There is no pulmonary embolus. 2. Moderate right pleural effusion. 3. Moderate pericardial effusion. 4. Pulmonary trunk is dilated suggesting pulmonary arterial hypertension. 5. Mediastinal and bilateral hilar adenopathy. 6. Question mild peripancreatic fluid near the pancreas tail. Suggest correlation with lipase. Echo 02/15 <Conclusion> Left ventricle systolic function is normal. The Ejection Fraction is 55-60%. There is a flattened septum consistent with right ventricle pressure overload. Septal motion consistent with conduction abnormality. The right ventricle is severely dilated. RV Systolic function is moderately reduced. Doppler and Color Flow revealed trace to mild tricuspid regurgitation. There is moderate-severe pulmonary hypertension. The PA pressure was estimated at 63 mmHg. There is a small to medium (approximately 1.25 cm) loculated apical pericardial effusion. Cardiac Cath 02/15 Conclusion 1. Normal biventricular filling pressures 2. Moderate pulmonary hypertension, mean PA 37 mmHg without any significant vasoreactivity on vasodilator testing 3. Normal cardiac output 4. No evidence of cardiac tamponade. CXR 02/14 Mild enlarged cardiac silhouette could be cardiomegaly or pericardial effusion. Mild bibasilar lung airspace opacity likely atelectasis or infiltrates. Minimal blunting of the right costophrenic angle could be trace right pleural effusion.. PE: GEN: NAD HEENT: Atraumatic, PERRL LUNGS: CTAB HEART: RRR ABD: NABS, S/ND/NT EXTREMITY: No edema SKIN: No rashes, no jaundice NEURO/PSYCH: A & O 3 A/P: A/P: Metastatic breast cancer, right pleural effusion s/p thoracentesis, pericardial effusion Elevated LFTs Gastric intestinal metaplasia H/o GERD, early satiety, globus CRC screen - UTD FH gastric cancer, pancreatic cancer -- Continue per oncology - notes and imaging mentions possible liver mets - will discuss if any further GI workup/imaging indicated. Discussed EGD results - for GIM w/ FH of gastric cancer, would recommend surveillance EGDs. Current plans are for port placement and palliative chemo for her metastatic breast cancer - would focus on this. Agree w/ daily PPI. SHASHANK GALARZA Feb 17, 2021 12:04
--- NOTE | 2021-02-17 12:43 | PDOC ---
[employer] PROGRESS NOTE Date of Service DOS: DATE: 02/17/21 TIME: 12:44 Chief Complaint Chief Complaint worsening shortness of breath with hypoxia, pulmonary hypertension, new, poss secondary, concern for restrictive cardio disease metastatic breast cancer, s/p Bilat masectomy and radiation, now on adjuvant therapy with Arimidex History of Present Illness History of Present Illness some pain, hypoxia today ONC consult following, plan port, will do more chemo echo shows new cor pulmonale, poss lymphangitic spread, right heart cath done , CV and pulm following pt is in good spirits, still weak and dyspneic Vitals/I&O Vitals/I&O: Vital Signs Date Time Temp Pulse Resp B/P (MAP) Pulse Ox O2 Delivery O2 Flow Rate FiO2 02/17/21 11:00 109 21 83/66 (72) 99 Nasal Cannula 2.0 02/17/21 07:00 98.2 98.2 I & O 02/16/21 02/16/21 02/17/21 14:57 22:57 06:57 Intake Total 480 ml 200 ml Output Total 700 ml Balance -220 ml 200 ml Physical Exam General: Alert, Oriented X3 Heart: Regular rate Lungs: Other (decrease right base) Abdomen: Normal bowel sounds Extremities: No clubbing Skin: No rashes Assessment and Plan Assessmemt and Plan Problems Medical Problems: (1) Pericardial effusion, acute Status: Acute (2) Shortness of breath Status: Acute (3) Tachycardia Status: Acute Comment Review of Relevant I have reviewed the following items ash (where applicable) has been applied. Medications: Current Medications Medications (Trade) Dose Ordered Sig/Tita Route PRN Reason Start Time Stop Time Status Last Admin Dose Admin Oxycodone/ Acetaminophen (Percocet 5/325) 1 tab PRN Q4HRS PRN PO PAIN 02/16/21 16:15 02/16/21 16:19 Justifications for Admission Other Justification ALISTAIR ASIF MD Feb 17, 2021 12:43
[2021-02-17] MEDS ORDERED: LIDOCAINE 2%/EPI 1:100,000 20 ML VIAL. ONE (14:30)
[2021-02-17] MEDS ORDERED: HEPARIN PF 500 UNIT/5 ML DISP.SYRIN. IVP ONE ×2 (14:30→15:30)
[2021-02-17] MEDS ORDERED: fentaNYL PF VIAL 100 MCG/2 ML VIAL ONE (14:56)
[2021-02-17] MEDS ORDERED: MIDAZOLAM HCL/PF 2 MG/2 ML VIAL. ONE (14:56)
[2021-02-17] MEDS ORDERED: LIDOCAINE 2%/EPI 1:100,000 20 ML VIAL. IJ ONE (15:30)
[2021-02-17] MEDS ORDERED: MIDAZOLAM HCL/PF 2 MG/2 ML VIAL. IV ONE (15:30)
[2021-02-17] MEDS ORDERED: fentaNYL PF VIAL 100 MCG/2 ML VIAL IV ONE (15:30)
--- NOTE | 2021-02-17 15:37 | PDOC ---
MODERATE SEDATION ASSESSMENT RISKS/ALTERNATIVES Risks/Alternatives Risks and alternatives of this type of sedation and procedure discussed with: RISK/ALTERNATIVES: Patient H & P ON CHART H & P H & P on chart and reviewed for co-morbid conditions and appropriate labs. H&P ON CHART: Yes STATUS PREG STATUS ASSESSED: Yes MEDS/ALLERGIES REVIEWED Meds/Allergies Reviewed Medications and Allergies including time and route of recently administered narcotics and sedatives. MEDS/ALLERGIES REVIEWED: Yes ASA RATING ASA RATING: II AIRWAY ASSESSMENT Airway Assessment Airway patency, oral function limitations, presence of caps, crowns, dentures, partials, and ability to extend neck assessed. AIRWAY ASSESSMENT: Yes MALLAMPATI SCORE MALLAMPATI SCORE: II PRE-SEDATION ASSESSMENT PRE-SEDATION ASSESSMENT: Yes TRIPP RECIO MD Feb 17, 2021 15:37
--- NOTE | 2021-02-17 15:38 | PDOC ---
BRIEF OPERATIVE NOTE Pre-Op Diagnosis Breast cancer, bilateral mastectomies, prior poorly functioning left port Post-Op Diagnosis same Procedure Performed Port Surgeon Quentin EBL minimal Anesthesia Type: Conscious Sedation Specimens Obtained none Findings R IJ port suitable for use. TRIPP RECIO MD Feb 17, 2021 15:38
--- NOTE | 2021-02-17 15:43 | RAD ---
Procedure: Port-A-Cath placement Clinical Indication: Adult female with history of breast cancer, bilateral mastectomies, prior poorly functioning left port. Sedation: Conscious sedation was administered with a total intraprocedural dcoa-jg-[id number] time of 22 minutes. The patient was monitored by a qualified independent observer throughout the time of sedation. Please refer to the medical record for exact doses of medications utilized to achieve moderate sedation. Antibiotics: Antibiotic was administered intravenously within 1 hour of the procedure start time. Exposure: Fluoro Time: Less than 1 minute Images: 1 Contrast: None Sterility: All elements of maximal sterile barrier technique including the use of a cap, mask, sterile gown, sterile gloves, large sterile sheet, appropriate hand hygiene, and 2% chlorhexidine for cutaneous antisepsis (or acceptable alternative antiseptic per current guidelines) were followed for this procedure. Consent: The procedure was explained in its entirety to the patient or the patients designated agency sales representative by a member of the treatment team, including a discussion of the risks, benefits and commonly accepted alternatives to the procedure, as well as the expected consequences of no therapy whatsoever. Discussion of the risks included, but was not limited to, those that are most frequent and those that are rare but possibly severe or life-threatening, as well as the possibility of unforeseen complications. Technique and Findings: Ultrasound interrogation of the right neck revealed patency and compressibility of the internal jugular vein. A hardcopy ultrasound image was recorded as a 21-gauge micropuncture needle was used to gain access to this vessel. The needle was exchanged over a wire for a peel-away sheath. The skin over the ipsilateral anterior chest wall was then copiously anesthetized with 1% lidocaine plus epinephrine, and a small dermatotomy was made. Blunt dissection techniques were used to create a pocket for the port. The port was then tunneled subcutaneously towards the neck dermatotomy then deployed under fluoroscopic guidance through the peel-away sheath such that the distal tip resided in the proximal right atrium. The port was accessed and found to flush and aspirate with ease. The port was packed with heparin. The pocket was copiously irrigated with sterile saline then closed with deep interrupted and running subcuticular 4-0 Vicryl suture. Dermabond was used to close the neck dermatotomy. Complications: No images Impression: 1. Ultrasound and fluoroscopic guided placement of right IJ Port-A-Cath as described.
[2021-02-17 19:57] VITALS: BP 99/88
[2021-02-17] MEDS: ZOLPIDEM 5 MG TABLET. PO SCH (20:26)
[2021-02-17 22:32] VITALS: BP 87/69
[2021-02-17] MEDS: ONDANSETRON PF 4 MG/2 ML VIAL. IVP PRN ×2 (22:53→22:55)
[2021-02-18] MEDS: ACETAMINOPHEN 325 MG TABLET. PO SCH ×4 (06:34→18:00)
[2021-02-18 07:00] VITALS: BP 70/48
[2021-02-18] MEDS: ONDANSETRON ODT 4 MG TAB.RAPDIS. PO SCH ×3 (07:30→16:30)
[2021-02-18] MEDS: PANTOPRAZOLE 40 MG TABLET.DR. PO SCH (07:45)
[2021-02-18] MEDS: ANASTROZOLE 1 MG TABLET PO SCH (08:45)
--- NOTE | 2021-02-18 10:50 | PDOC ---
Date of Service: DATE: 02/18/21 TIME: 10:46 Subjective: Subjective: Eating doing, still short of breath. Going home today? Will follow-up w/ oncology next week re: chemo. Objective: Vital Signs: Vital Signs Date Time Temp Pulse Resp B/P (MAP) Pulse Ox O2 Delivery O2 Flow Rate FiO2 02/18/21 07:00 98.0 106 17 70/48 (55) 99 Nasal Cannula 2.0 98.0 Labs: GRAM STAIN Final Final NO ORGANISMS SEEN. SQUAMOUS EPI CELL:NOT APPLICABLE PMN (WBCs):NONE SEEN Unless otherwise specified, Testing Performed by: [address] [id number] For Inquires, the Physician may contact the Microbiology department at [phone] ANAEROBIC-AEROBIC CULTURE Preliminary Preliminary No Growth on 02/17/21 at 0847 No Growth on 02/18/21 at 0919 Unless otherwise specified, Testing Performed by: [address] [id number] For Inquires, the Physician may contact the Microbiology department at [phone] Imaging: IR procedure Impression: 1. Ultrasound and fluoroscopic guided placement of right IJ Port-A-Cath as described. PE: GEN: NAD LUNGS: diminished, bit tachypneic, NC 2L HEART: RRR ABD: NABS, S/ND/NT NEURO/PSYCH: A & O 3 A/P: Metastatic breast cancer, right pleural effusion, pericardial effusion - s/p thoracentesis and port Elevated LFTs, ?liver mets Gastric intestinal metaplasia, FH gastric cancer H/o GERD, early satiety, globus - restarted PPI QD -- DC per primary on PPI, follow-up w/ oncology as planned. Justicifation of Admission Dx: Justifications for Admission: Justification of Admission Dx: Yes SHASHANK AGLARZA Feb 18, 2021 10:50
--- NOTE | 2021-02-18 10:56 | PDOC ---
PULMONARY PROGRESS NOTES DATE: 02/18/21 TIME: 10:54 Subjective no increase soa s/p right cath 02/15 s/p right thoracentesis 02/16, 700 cc removed Vitals Vital Signs Date Time Temp Pulse Resp B/P (MAP) Pulse Ox O2 Delivery O2 Flow Rate FiO2 02/18/21 07:00 98.0 106 17 70/48 (55) 99 Nasal Cannula 2.0 98.0 General: Alert, No acute distress Lungs: Other (decrease right base) Cardiovascular: S1 Abdomen: Soft Neuro Exam: Alert Extremities: No Edema Skin: Warm Medications Active Scripts Medications Dose Route/Sig Max Daily Dose Days Date Category Zolpidem Tartrate 5 Mg Tablet 5 Mg PO PRN QHS PRN 02/14/21 Reported Nexium Capsule (Esomeprazole Magnesium) 40 Mg Capsule.dr 1 Cap PO DAILY 01/26/21 Reported Arimidex (Anastrozole) 1 Mg Tablet 1 Tab PO DAILY 30 01/26/21 Reported Impression . 1. Progressive dyspnea with acute hypoxic respiratory failure. This is likely secondary to combination of pulmonary hypertension, a small to moderate right sided pleural effusion and a small to moderate pericardial effusion. Likely, the effusions are metastatic. 2. The patient with breast cancer diagnosed in 2018, status post bilateral mastectomy and reconstruction surgery followed by chemo and radiation. Now has a highly abnormal PET scan suggestive of extensive bony metastasis. She also has suspected pleural and pericardial metastases in addition abnormal liver function test suggestive of possible hepatic metastasis as well.Mediastinal/ hilar adenopathy suggestive of Mets as well. 3. Pulmonary hypertension, moderate with a pulmonary artery systolic pressure of 63. There is evidence of dilatation of the pulmonary trunk on the CT chest. There is no evidence of pulmonary embolism. She has evidence of [id number]-[id number] pericardial effusion. s/p right cath 4. No significant tobacco history. Plan . 1. I have discussed with Dr. Ewing and Dr. Canada. right heart catheterization report reviewed. No restrictive or tamponade physiology. Moderate Pulmonary HTN, likely primary. No vaso-reactivity 2. s/p right thoracentesis 02/16, 700 cc removed, ? any sig improvement, AWAIT CYTOLOGY 3. d/w Cardiology regarding the need for f/u echo in 1 week and assess for any pericardiocentesis.she may need thoracic surgery consult At this time, it can be closely watched for any further increase. 4. Continue present oxygen. 5. Follow liver function test. 6. Follow Oncology recommendations. 7. Consider Pulmonary vasodilators as OP 8. Chemo soon RONIT CHANCE MD Feb 18, 2021 10:56
[2021-02-18 11:00] VITALS: BP 91/64
[2021-02-18] MEDS: traMADol 50 MG TABLET PO PRN ×2 (12:05→19:23)
[2021-02-18] MEDS ORDERED: TRAM50TA PO (12:23)
[2021-02-18] MEDS ORDERED: ONDA4TAB12 PO (12:23)
--- NOTE | 2021-02-18 12:27 | SNU/HH DC ---
DISCHARGE WITH HOME HEALTH DISCHARGE INFORMATION: Discharge Date: Feb 18, 2021 Final Diagnosis: shortness of breath with hypoxia metastatic breast cancer new cor pulmonale with pulm htn Problems Medical Problems: (1) Pericardial effusion, acute Status: Acute (2) Shortness of breath Status: Acute (3) Tachycardia Status: Acute Condition on Discharge: Stable CODE STATUS: Code Status: Full HOME HEALTH: Face to Face: I certify this patient is under my care and that I, had a face to face encounter that meets the physician face to face encounter requirements with this patient on 02/18/21 Alf For: Assess Cardiopulm Status, Assess & Educate Safety, Medication Management RN For Eval/Treatment: Yes Physical Therapy For: Evalulation/Treatment Occupational Therapy For: Evaluation/Treatment Pt Meets Homebound Status: Unsteady balance w/ amb,, Extreme weakness w/ amb. POST DISCHARGE ORDERS: Activity Instructions for Disc: Activity as tolerated Weight Bearing Status after Di: As tolerated DIET AFTER DISCHARGE: Regular Wound/Incision Care: Keep wound/cast CDI FOLLOW-UP: Follow up with: Dr. Vásquez, next week TREATMENT/EQUIPMENT ORDERS: Adaptive Equipment Issued: None CERTIFICATION STATEMENT: Certification Statement: Certification Statement: Based on the above finding, I certify that this patient is confined to the home and needs intermittent residential care, physical therapy and/or speech therapy, or continues to need occupational therapy.~ This patient is under my care, and I have initiated the establishment of the plan of care.~ This patient will be followed by myself or a community physician who will periodically review the plan of care. Home Meds Active Scripts Ondansetron (ONDANSETRON ODT) 4 Mg Tab.rapdis, 4 MG PO TIDAC PRN for NAUSEA, #20 TAB Prov:ALISTAIR ASIF MD 02/18/21 Tramadol Hcl (TRAMADOL HCL) 50 Mg Tablet, 50 MG PO PRN Q6HRS PRN for MODERATE PAIN, #20 TAB Prov:ALISTAIR ASIF MD 02/18/21 Reported Medications Zolpidem Tartrate (ZOLPIDEM TARTRATE) 5 Mg Tablet, 5 MG PO PRN QHS PRN for INSOMNIA, TAB 0 Refills 02/14/21 Esomeprazole Magnesium (NEXIUM CAPSULE) 40 Mg Capsule.dr, 1 CAP PO DAILY for GERD, #30 CAP 5 Refills 01/26/21 Anastrozole (ARIMIDEX) 1 Mg Tablet, 1 TAB PO DAILY for breast cancer for 30 Days, #30 TAB 0 Refills 01/26/21 ALISTAIR ASIF MD Feb 18, 2021 12:26
--- NOTE | 2021-02-18 13:09 | NUR ---
SS following up with discharge planning. SS reviewed pt chart and discussed with pt RN. Pt is currently requiring oxygen at two liters nasal canula. Pt having shortness of air. COVID19 negative. Six minute walk ordered. PT/OT recommended home with home healthcare. SS met with pt and discussed discharge planning and home healthcare. Pt agreeable to home healthcare with no preference of company. Discharge orders and referral were phoned and faxed to [facility], ; fax [phone]. Pt accepted on services. Pt's RN notified.
[2021-02-18 14:19] VITALS: BP 98/66
--- NOTE | 2021-02-18 14:55 | NUR ---
SS following up with discharge planning. SS was informed that pt will need prior authorization from insurance in order to receive oxygen. SS contacted bdc manager, Macey, ; fax [phone], with [employer] and was told that once 6 minute walk is complete and order has been completed all clinical and script need to be phoned and faxed to Macey. sent a list of approved DME providers. [facility] was in network. [facility], ; fax [phone]. SS currently awaiting six minute walk to be completed. Once everything is sent [facility] will need to contact Macey and notify her that they are ready to deliver. SS will continue to follow for discharge planning.
--- NOTE | 2021-02-18 15:25 | PDOC3 ---
Discharge Summary Visit Information Date of Admission: Feb 14, 2021 Date of Discharge: Feb 18, 2021 Final Diagnosis worsening shortness of breath with hypoxia, acute hypoxic respiratory failure new cor pulmonale, pulmonary hypertension, new, metastatic breast cancer, s/p Bilat masectomy and radiation, now on adjuvant therapy with Arimidex Problems Medical Problems: (1) Pericardial effusion, acute Status: Acute (2) Shortness of breath Status: Acute (3) Tachycardia Status: Acute Brief Hospital Course Allergies Allergies Coded Allergies Type Severity Reaction Last Updated Verified No Known Drug Allergies 01/28/21 No Vital Signs Vital Signs Date Time Temp Pulse Resp B/P (MAP) Pulse Ox O2 Delivery O2 Flow Rate FiO2 02/18/21 14:19 97.5 110 18 98/66 (77) 98 Nasal Cannula 3.0 97.5 Brief Hospital Course Ms. Salomon is a 55 old female with metastatic breast cancer, admit for worsening dyspnea. cannot walk at home, new hypoxia, weakness and debility months of progression of symptoms, echo showed new cor pulmonale, CT angio neg for PE ONC consult followed, port olaced, will do more chemo as outpatient poss lymphangitic spread, right heart cath done , CV and pulm followed Discharge Information Condition at Discharge: Improved Follow Up: Weeks Disposition/Orders: D/C to Home w/ HH Scheduled Anastrozole (Arimidex) 1 Mg Tablet, 1 TAB PO DAILY for breast cancer for 30 Days, #30 Ref 0 (Reported) Entered as Reported by: NIKOS CHESTER on 01/26/21813 Last Action: Continued on 02/14/211451 by ALISTAIR ASIF Esomeprazole Magnesium (Nexium Capsule) 40 Mg Capsule.dr, 1 CAP PO DAILY for GERD, #30 Ref 5 (Reported) Entered as Reported by: NIKOS CHESTER on 01/26/21813 Last Action: Converted on 02/14/211451 by ALISTAIR ASIF Scheduled PRN Ondansetron (Ondansetron Odt) 4 Mg Tab.rapdis, 4 MG PO TIDAC PRN for NAUSEA, #20 Prescribed by: ALISTAIR ASIF on 02/18/21 1223 Tramadol Hcl (Tramadol Hcl) 50 Mg Tablet, 50 MG PO PRN Q6HRS PRN for MODERATE PAIN, #20 Prescribed by: ALISTAIR ASIF on 02/18/21 1224 Zolpidem Tartrate (Zolpidem Tartrate) 5 Mg Tablet, 5 MG PO PRN QHS PRN for INSOMNIA, Ref 0 (Reported) Entered as Reported by: TUTU WEINER RN on 02/14/211640 Last Taken: Unknown Dose on 02/14/21 Last Action: New Order on 02/14/211640 by TUTU WEINER RN Patient Instructions Patient Instructions > 30 minutes 2 visits today face to face 6 min walk before DC Justicifation of Admission Dx: Justifications for Admission: Justification of Admission Dx: Yes ALISTAIR ASIF MD Feb 18, 2021 15:25
[2021-02-18 18:16] VITALS: BP 84/63
--- NOTE | 2021-02-18 18:33 | PDOC ---
CARDIOLOGY PROGRESS NOTE SUBJECTIVE: No acute events overnight. The patient this morning felt better but unfortunately after a 6-minute mccann walk she has been strongly tired and dyspneic. Denies any significant chest pain. No palpitations. OBJECTIVE: Vital Signs/I&O: Vital Signs Date Time Temp Pulse Resp B/P (MAP) Pulse Ox O2 Delivery O2 Flow Rate FiO2 02/18/21 18:16 98.3 96 18 84/63 (70) 92 Nasal Cannula 3.0 98.3 I & O 02/17/21 02/17/21 02/18/21 15:00 23:00 07:00 Intake Total 100 ml Balance 100 ml Objective: Exam overall is unchanged She is mildly tachypneic and appears significantly fatigued Heart tones are normal with an S1 and S2. She is mildly tachycardic. No obvious murmurs noted Lungs with decreased rales but still persistent Soft abdomen No significant lower extremity edema No focal neurologic deficits CURRENT MEDICATIONS: No current cardiovascular indications DIAGNOSTIC TESTING: Right heart catheterization earlier this week did not reveal any significant tamponade. She had moderate pulmonary hypertension which was nonreactive to vasodilator testing. ASSESSMENT: 1. Acute on chronic dyspnea likely related to pulmonary hypertension and tumor infiltration given stage IV breast cancer. 2. Isolated apical pericardial effusion on echocardiogram with normal LV systolic function. Dilated right ventricle. PLAN: 1. Given focal apical effusion on most recent echocardiogram, with preserved LV function and dilated right ventricle this does not appear to be a tamponade physiology. Ultimately, the patient will likely benefit from a pericardial window given her extensive breast cancer. We will repeat an echocardiogram in 7 to 10 days and monitor her effusion and if this is increasing in size we can certainly consider a more emergent pericardiocentesis versus referral for window at a tertiary Medical Center. If the patient remains in house until next week then we could consider inpatient repeat echocardiogram. Otherwise supportive care for now. Okay to discharge from a cardiac standpoint. We will arrange for outpatient echocardiogram through our office in 7 to 10 days. Justicifation of Admission Dx: Justifications for Admission: Justification of Admission Dx: Yes LACY HENRIQUEZ MD Feb 18, 2021 18:32
--- NOTE | 2021-02-18 19:25 | NUR ---
Pt in bed assessment completed vss poc explained pt c/o pain 06/28 will medicate pt and continue to monitor pt. Call light in reach.
[2021-02-18] MEDS: ZOLPIDEM 5 MG TABLET. PO SCH (20:50)
[2021-02-18] MEDS: ONDANSETRON PF 4 MG/2 ML VIAL. IVP PRN (20:50)
[2021-02-18 22:31] VITALS: BP 87/70
[2021-02-19] MEDS: PANTOPRAZOLE 40 MG TABLET.DR. PO SCH (05:43)
[2021-02-19] MEDS: ONDANSETRON ODT 4 MG TAB.RAPDIS. PO SCH ×2 (05:43→12:28)
[2021-02-19] MEDS: ACETAMINOPHEN 325 MG TABLET. PO SCH ×3 (05:44→12:28)
[2021-02-19 05:47] VITALS: BP 70/55
[2021-02-19 06:02] VITALS: BP 70/55
[2021-02-19] MEDS: ANASTROZOLE 1 MG TABLET PO SCH (09:22)
--- NOTE | 2021-02-19 09:45 | PDOC ---
[employer] PROGRESS NOTE Date of Service DOS: DATE: 02/19/21 TIME: 09:46 Chief Complaint Chief Complaint worsening shortness of breath with hypoxia, pulmonary hypertension, new, poss secondary, concern for restrictive cardio disease metastatic breast cancer, s/p Bilat masectomy and radiation, now on adjuvant therapy with Arimidex History of Present Illness History of Present Illness some pain, hypoxia today ONC consult following, plan port, will do more chemo echo shows new cor pulmonale, poss lymphangitic spread, right heart cath done , CV and pulm following pt is in good spirits, still weak and dyspneic 02/19/2021 Patient seen and evaluated. Afebrile, no complaints today. She did not discharge yesterday because she did not feel comfortable going home with home oxygen without her present. Patient states her will pick her up at noon today. Will discharge home with home health. Greater than 30 minutes was spent managing the discharge of this patient. Vitals/I&O Vitals/I&O: Vital Signs Date Time Temp Pulse Resp B/P (MAP) Pulse Ox O2 Delivery O2 Flow Rate FiO2 02/19/21 06:02 98.6 107 18 70/55 (60) 91 Nasal Cannula 2.0 98.6 I & O 02/18/21 02/18/21 02/19/21 14:57 22:57 06:57 Intake Total 860 ml 100 ml Balance 860 ml 100 ml Physical Exam General: Alert, Oriented X3, No acute distress Heart: Regular rate Lungs: Other (decrease right base) Abdomen: Normal bowel sounds Extremities: No clubbing Skin: No rashes Assessment and Plan Assessmemt and Plan Problems Medical Problems: (1) Pericardial effusion, acute Status: Acute (2) Shortness of breath Status: Acute (3) Tachycardia Status: Acute Comment Review of Relevant I have reviewed the following items ash (where applicable) has been applied. Medications: Current Medications Medications (Trade) Dose Ordered Sig/Tita Route PRN Reason Start Time Stop Time Status Last Admin Dose Admin Tramadol HCl (Ultram) 50 mg PRN Q6HRS PRN PO MODERATE PAIN 02/18/21 10:30 02/18/21 19:23 Justifications for Admission Other Justification NATHAN JENKINS MD Feb 19, 2021 09:45
--- NOTE | 2021-02-19 11:11 | PDOC ---
PULMONARY PROGRESS NOTES DATE: 02/19/21 TIME: 11:08 Subjective no increase soa,cough or CP, remains on 2 liters N/C s/p right cath 02/15 s/p right thoracentesis 02/16, 700 cc removed Vitals Vital Signs Date Time Temp Pulse Resp B/P (MAP) Pulse Ox O2 Delivery O2 Flow Rate FiO2 02/19/21 06:02 98.6 107 18 70/55 (60) 91 Nasal Cannula 2.0 98.6 ROS: No Nausea, No Chest Pain, No Abdominal Pain General: Alert, Oriented X4, No acute distress Lungs: Clear Cardiovascular: S1 Abdomen: Soft Neuro Exam: Alert Extremities: No Edema Skin: Warm, Dry Medications Active Scripts Medications Dose Route/Sig Max Daily Dose Days Date Category Zolpidem Tartrate 5 Mg Tablet 5 Mg PO PRN QHS PRN 02/14/21 Reported Nexium Capsule (Esomeprazole Magnesium) 40 Mg Capsule.dr 1 Cap PO DAILY 01/26/21 Reported Arimidex (Anastrozole) 1 Mg Tablet 1 Tab PO DAILY 30 01/26/21 Reported Impression . 1. Progressive dyspnea with acute hypoxic respiratory failure. This is likely secondary to combination of pulmonary hypertension, a small to moderate right sided pleural effusion and a small to moderate pericardial effusion positive for metastatic disease. 2. The patient with breast cancer diagnosed in 2018, status post bilateral mastectomy and reconstruction surgery followed by chemo and radiation. Now has a highly abnormal PET scan suggestive of extensive bony metastasis. She also has suspected pleural and pericardial metastases in addition abnormal liver function test suggestive of possible hepatic metastasis as well.Mediastinal/ hilar adenopathy suggestive of Mets as well. 3. Pulmonary hypertension, moderate with a pulmonary artery systolic pressure of 63. There is evidence of dilatation of the pulmonary trunk on the CT chest. There is no evidence of pulmonary embolism. She has evidence of [id number]-soiijtfm pericardial effusion. s/p right cath 4. No significant tobacco history. Plan . Continue supplemental oxygen to keep oxygen saturations greater than 92%, remains on 2 liters N/C Follow cardiology recommendations, plan for echocardiogram every 2 weeks S/P right heart catheterization report reviewed. No restrictive or tamponade physiology. Moderate Pulmonary HTN, likely primary. No vaso-reactivity s/p right thoracentesis 02/16, 700 cc removed, effusion positive for malignancy, await staining/pathology d/w Cardiology regarding the need for f/u echo in 1 week and assess for any pericardiocentesis.she may need thoracic surgery consult Follow liver function test. Follow Oncology recommendations--- chemo Consider Pulmonary vasodilators as OP Discussed with RN and patient Okay to discharge home with home oxygen today RONIT CHANCE MD Feb 19, 2021 11:11
[2021-02-19 11:29] VITALS: BP 89/70
--- NOTE | 2021-02-19 11:30 | NUR ---
Approximately 1130, pt pressed call light stating she was SOB after walking back from the restroom. Pt appeared pale and diaphoretic. Assisted patient back to bed and checked VS. Patient O2Sat at 91% on 2LNC, however she was tachypnic. Patient is to discharge today around noon. Patient stated she wanted to rest for a bit before going home. Attempted to call to advise him to come later due to having to work tonight however was already in the parking lot. When this RN advised him of what was going on, he stated he [place] Addendum: 02/19/21 at 1405 by Rishabh Shields RN *continued wanted an update. I advised patient was SOB with exertion which is normal d/t to her current medical condition and diagnosis. inquired to whether another thoracentesis or pericardiacentesis. This RN pgd and spoke to both medical transcription and hand cultivator who advised there was no need to do that a this time. The current POc as previously discussed with patient is for ECHO in 2 weeks to monitor and re-evaluate the need at that time. Advised and son of both. stated he will return late to take patient home.
[2021-02-19 14:54] VITALS: BP 81/54
--- NOTE | 2021-02-19 16:34 | NUR ---
Discharge Note: [facility] Discharge instructions and discharge home medications reviewed with Patient and a copy given. All questions have been answered and understanding verbalized. The following instructions and handouts were given: DISCHARGE PACKET,PORT CATH id CARD, OXYGEN TANK, FOLLOW UP APPOINTMENTS Discontinued lines and drains: Peripheral IV intact. Patient discharged to Home w/services with Family Member via Wheelchair
== END 2021-02-19 16:41 | disposition home health service (06) | DRG 286 ==
LOC: ER 10:37 → ED HOLD 12:22 → 2 SOUTH 14:40
PROVIDERS: ADMIT Internal Medicine; ATTEND Internal Medicine
PROC: 4A023N6 Measurement of Cardiac Sampling and Pressure, Right Heart, Percutaneous Approach (ICD-10-PCS; principal; 2021-02-15)
PROC: 0W993ZZ Drainage of Right Pleural Cavity, Percutaneous Approach (ICD-10-PCS; 2021-02-16)
PROC: 0JH63XZ Insertion of Tunneled Vascular Access Device into Chest Subcutaneous Tissue and Fascia, Percutaneous Approach (ICD-10-PCS; 2021-02-17)
PROC: 02H633Z Insertion of Infusion Device into Right Atrium, Percutaneous Approach (ICD-10-PCS; 2021-02-17)
PROC: B5181ZA Fluoroscopy of Superior Vena Cava using Low Osmolar Contrast, Guidance (ICD-10-PCS; 2021-02-17)
PROC: B548ZZA Ultrasonography of Superior Vena Cava, Guidance (ICD-10-PCS; 2021-02-17)
DX: I31.3 Pericardial effusion (noninflammatory) (principal); J96.01 Acute respiratory failure with hypoxia; C79.51 Secondary malignant neoplasm of bone; C16.9 Malignant neoplasm of stomach, unspecified; C78.7 Secondary malignant neoplasm of liver and intrahepatic bile duct; E87.2 Acidosis; Z20.822 Contact with and (suspected) exposure to COVID-19; C50.911 Malignant neoplasm of unspecified site of right female breast; F41.9 Anxiety disorder, unspecified; I27.29 Other secondary pulmonary hypertension; I27.81 Cor pulmonale (chronic); K21.9 Gastro-esophageal reflux disease without esophagitis; Z79.810 Long term (current) use of selective estrogen receptor modulators (SERMs); Z87.11 Personal history of peptic ulcer disease; Z90.13 Acquired absence of bilateral breasts and nipples; Z92.21 Personal history of antineoplastic chemotherapy; Z92.3 Personal history of irradiation
CPT/HCPCS: 32555; 36415; 36561; 71045; 71275; 76937; 77001; 80053; 81001; 82553; 83605; 83615; 83735; 83880; 84145; 84157; 84443; 84484; 85025; 85610; 85730; 86300; 87040; 87071; 87075; 87426; 93005; 93308; 93321; 93325; 93451; 94618; 94760; 99152; 99153; 99285; C1751; C1773; C1892; J0153; J0690; J1642; J1644; J1650; J2250; J2405; J3010; J3490; J7040; Q9967; U0003; U0005; 97535-GO; G0378

== ENCOUNTER → 2021-02-22 | Outpatient (CLI) | payer OTHER, MEDICARE ==
[2021-02-19 14:54] VITALS: BP 81/54
[~2021-02-22] MED LIST changes: +ONDA4TAB12 PO; +TRAM50TA PO; +ZOLP5TAB5 PO
[2021-02-22 13:42] LABS: BASO % 1 % (0-3); EOS % 0 % (0-3); HEMATOCRIT 43.8 % (36.0-47.0); HEMOGLOBIN 14.7 g/dL (12.0-15.5); LYMPH # 1.1 x10^3/uL (1.0-4.8); LYMPH % 19 % (24-48); MEAN CORPUSCULAR HEMOGLOBIN 31 pg (25-35); MEAN CORPUSCULAR HGB CONC 34 g/dL (31-37); MEAN CORPUSCULAR VOLUME 92 fL (79-100); MONO # 0.7 x10^3/uL (0.0-1.1); MONO % 13 % (0-9); NEUT # 3.8 x10^3/uL (1.8-7.7); NEUT % 68 % (31-73); PLATELET COUNT 57 x10^3/uL (140-400); RED BLOOD COUNT 4.77 x10^6/uL (3.50-5.40); RED CELL DISTRIBUTION WIDTH 15.7 % (11.5-14.5); WHITE BLOOD COUNT 5.6 x10^3/uL (4.0-11.0)
[2021-02-22 14:00] LABS: CALCIUM 8.3 mg/dL (8.5-10.1); CREATININE 0.6 mg/dL (0.6-1.0); GFR 104.6; POTASSIUM 4.1 mmol/L (3.5-5.1)
[2021-02-22 14:05] LABS: ALBUMIN 2.5 g/dL (3.4-5.0); ALBUMIN/GLOBULIN RATIO 0.7 (1.0-1.7); TOTAL BILIRUBIN 3.8 mg/dL (0.2-1.0); TOTAL PROTEIN 6.3 g/dL (6.4-8.2)
== END ==
LOC: ONCLAB 12:56
PROVIDERS: ATTEND Physician Assistant
DX: C50.311 Malignant neoplasm of lower-inner quadrant of right female breast (principal)
CPT/HCPCS: 36415; 80053; 83615; 85025

== ENCOUNTER 2021-02-23 13:54 | Inpatient (IN) | payer OTHER, MEDICARE ==
[~2021-02-23] VITALS: Ht 167.6 cm; Wt 61.9 kg
[2021-02-23] MEDS ORDERED: PIPERACILLIN/TAZOBACTAM 3.375 GM in IV NORMAL SALINE 50ML 50 ML IV ONE (14:30)
--- NOTE | 2021-02-23 14:43 | PHYS DOC ---
Past Medical History Past Medical History: Other Additional Past Medical Histor: BREAST CA, BILAT MASTECT, IMSOMNIA Past Surgical History: Other Additional Past Surgical Histo: BILAT MASTECT. Smoking Status: Never Smoker Alcohol Use: None General Adult EDM: Chief Complaint: JAUNDICE HPI: HPI: This is a pleasant 55-year-old female who has history of breast cancer originally diagnosed in 2018 for which she underwent double mastectomy with reconstruction at [facility]. She had chemo and radiation 02/05/2019. She is currently following with hematology oncology who saw her today and gave the patient benadryl with tamoxifen. While in clinic she became hypoxic and li stless. Also they noted her bilirubin to be elevated around 6. She was sent here for further evaluation treatment and care. She currently denies any pain her primary complaint is dyspnea. On arrival the patient was hypoxic. Review of systems negative for abdominal pain vomiting fevers chills or rashes. She does endorse new jaundice. All other review of systems negative ED course: 55-year-old female presenting with jaundice, elevated bilirubin and acute hypoxic respiratory failure. She had been admitted to the hospital previously and had a pleural effusion and a pericardial effusion with cor pulmonale. Patient is placed on a facemask on arrival. We will do blood work and CT chest abdomen pelvis. Patient oxygen levels came to the low 90s on 15 L nonrebreather. CBC shows a white blood cell count of 10.5. Hemoglobin 14.6. Chemistry panel shows sodium of 130. Glucose 236. Lactic acid 3.6. Ammonia 45. Troponin 0 0.148. Bilirubin is 7.7 with direct 5.3. AST and ALT are elevated as well. proBNP is elevated. Chest x-ray shows moderate right pleural effusion increased from previous with possible pneumonia. CT abdomen pelvis shows no pulmonary embolism. Pericardial effusion present. Right pleural effusion present. There are few groundglass opacities which could be infectious or inflammatory. Given the critical nature of the patient's presentation I involved cardiology pulmonology and GI early in the patient's course. GI nurse practitioner cardiology nurse practitioner both were able to see the patient the emergency department. Stat echocardiogram was ordered. Hospitalist was able to see the patient here in the emergency department and place admission orders. We will admit the patient to the intensive care unit. Patient was placed on BiPAP for increased work of breathing. Judicial fluid management was used in this patient's case. Lactic acid may be related to sepsis and/or heart failure. Most likely the lactic acid represents endorgan dysfunction from multiple etiologies. We did give the patient a small fluid bolus. Cardiology reports no signs of tamponade. We did give the patient IV antibiotics to cover for any underlying infection. We will admit the patient to the intensive care unit. Review of Systems: Review of Systems: Constitutional: Denies fever or chills. [] Eyes: Denies change in visual acuity. [] HENT: Denies nasal congestion or sore throat. [] Respiratory: pos for soa Cardiovascular: Denies chest pain GI: Denies bloody stools or diarrhea. [] : Denies dysuria. [] Musculoskeletal: Denies back pain or joint pain. [] Integument: Denies rash. [] Neurologic: Denies headache, focal weakness or sensory changes. [] Endocrine: Denies polyuria or polydipsia. [] Lymphatic: Denies swollen glands. [] Psychiatric: Denies depression or anxiety. [] Heart Score: C/O Chest Pain: No Risk Factors: Risk Factors: DM, Current or recent (<one month) smoker, HTN, HLP, family history of CAD, obesity. Risk Scores: Score 0 - 3: 2.5% MACE over next 6 weeks - Discharge Home Score 4 - 6: 20.3% MACE over next 6 weeks - Admit for Clinical Observation Score 7 - 10: 72.7% MACE over next 6 weeks - Early Invasive Strategies Current Medications: Current Medications Medications (Trade) Dose Ordered Sig/Tita Start Time Stop Time Status Last Admin Dose Admin Piperacillin Sod/ Tazobactam Sod 3.375 gm/Sodium Chloride 50 ml @ 100 mls/hr 1X ONCE 02/23/21 14:30 02/23/21 14:59 UNV Allergies: Allergies: Allergies Coded Allergies Type Severity Reaction Last Updated Verified No Known Drug Allergies 01/28/21 No Physical Exam: PE: Constitutional: Patient is cachectic in appearance. Patient has an increased respiratory rate. Patient is jaundiced in appearance. HENT: Normocephalic, atraumatic, bilateral external ears normal, oropharynx moist, no oral exudates, nose normal. [] Eyes: PERRLA, EOMI, conjunctiva jaundice, no discharge. [] Neck: Normal range of motion, no tenderness, supple, no stridor. [] Cardiovascular: Tachycardic rate with a regular rhythm, no murmur [] Lungs & Thorax: Bilateral breath sounds clear to auscultation. No wheezing. Abdomen: Bowel sounds normal, soft, no tenderness, no masses, no pulsatile masses. No rebound tenderness or guarding. Skin: Warm, dry, no erythema, no rash. [] Positive for jaundice Back: No tenderness, no CVA tenderness. [] Extremities: No tenderness, no cyanosis, no clubbing, ROM intact, no edema. [] Neurologic: Alert and oriented X 3, normal motor function, normal sensory function, no focal deficits noted. [] Psychologic: Affect normal, judgement normal, mood normal. [] EKG: EKG: [] EKG shows sinus rhythm with a tachycardic rate. ST segments are congruent. Not suggestive of acute ischemia. Radiology/Procedures: Radiology/Procedures: [] Course & Med Decision Making: Course & Med Decision Making Pertinent Labs and Imaging studies reviewed. (See chart for details) [] Dragon Disclaimer: Dragon Disclaimer: This electronic medical record was generated, in whole or in part, using a voice recognition dictation system. Departure Departure Impression: Primary Impression: Lactic acidosis Additional Impressions: Tachycardia Hyperbilirubinemia Respiratory failure with hypoxia Pleural effusion Metastatic breast cancer Disposition: 09 ADMITTED INPT THIS HOSP Admitting Physician: MACEY Condition: STABLE Referrals: BUTCH ISAAC MD (PCP) Critical Care Time Critical care time spent was 50 minutes exclusive of procedures. Time was spent evaluating the patient, ordering the administration of medications, reevaluating the patient, discussing with the admitting provider and documenting. DONTA MOSQUERA MD Feb 23, 2021 14:43
[2021-02-23] MEDS ORDERED: IOHEXOL 350 MG/ML 100 ML VIAL. IV ONE (14:45)
[2021-02-23] MEDS ORDERED: CONTRAST GIVEN. MC PRN (14:45)
[2021-02-23 14:46] LABS: BASO % 0 % (0-3); EOS % 0 % (0-3); HEMATOCRIT 43.1 % (36.0-47.0); HEMOGLOBIN 14.6 g/dL (12.0-15.5); LYMPH # 0.3 x10^3/uL (1.0-4.8); LYMPH % 3 % (24-48); MEAN CORPUSCULAR HEMOGLOBIN 31 pg (25-35); MEAN CORPUSCULAR HGB CONC 34 g/dL (31-37); MEAN CORPUSCULAR VOLUME 92 fL (79-100); MONO # 0.4 x10^3/uL (0.0-1.1); MONO % 4 % (0-9); NEUT # 9.8 x10^3/uL (1.8-7.7); NEUT % 93 % (31-73); PLATELET COUNT 53 x10^3/uL (140-400); RED BLOOD COUNT 4.67 x10^6/uL (3.50-5.40); RED CELL DISTRIBUTION WIDTH 16.4 % (11.5-14.5); WHITE BLOOD COUNT 10.5 x10^3/uL (4.0-11.0)
[2021-02-23 15:00] LABS: CALCIUM 8.7 mg/dL (8.5-10.1); CREATININE 0.7 mg/dL (0.6-1.0); GFR 87.5; POTASSIUM 4.7 mmol/L (3.5-5.1)
[2021-02-23 15:06] LABS: ALBUMIN 2.7 g/dL (3.4-5.0); DIRECT BILIRUBIN 5.3 mg/dL (0.0-0.2); TOTAL BILIRUBIN 7.7 mg/dL (0.2-1.0); TOTAL PROTEIN 6.5 g/dL (6.4-8.2)
[2021-02-23] MEDS ORDERED: ASPIRIN CHEWABLE 81 MG TABLET. PO ONE (15:15)
--- NOTE | 2021-02-23 15:24 | RAD ---
XR CHEST 1V Clinical Indication: Reason: HYPOXIA / Spl. Instructions: / History: Comparison: AP chest February 14, 2021. Findings: There is new right chest Port-A-Cath, tip at superior atrial caval junction. The cardiomediastinal si lhouette is stable. The left lung is clear. There is moderate right pleural effusion. There is right basilar airspace disease. No pneumothorax is identified. No acute bone abnormality is seen. IMPRESSION: 1. Moderate right pleural effusion, increased from prior study. 2. Right basilar airspace disease, compressive atelectasis or pneumonia. Electronically signed by: Pelon Courtney MD (02/23/2021 3:22 PM) [id number]
--- NOTE | 2021-02-23 15:27 | PDOC1 ---
History and Physical Date of Service: DOS: DATE: 02/23/21 TIME: 15:23 Chief Complaint: Chief Complain: Hypoxia and jaundice History of Present Illness: HPI: Patient is a 55-year-old female who has a history of breast cancer status post mastectomy in 2018 and had breast reconstruction done at [facility]. She also had chemoradiation on February 05, 2019 and she is currently following with heme- onc who saw her today and gave the patient Benadryl and tamoxifen. While in the clinic patient became hypoxic and listless. also states that the patient had jaundice saying that started a couple days prior to her visit at the heme-onc clinic. Bilirubin was drawn to the clinic and they said that her bilirubin was around 6. She is transferred to the ED for further management. On arrival patient was hypoxic and she was placed on O2. She is currently speaking full sentences with me and does not appear to be dyspneic. She is alert and awake and oriented x3 and only complains of some mild vague abdominal pain around her periumbilical area. Denies fevers, nausea vomiting, chest pain, diarrhea or floating stools or bloody stools. ED course: 55-year-old female presenting with jaundice, elevated bilirubin and acute hypoxic respiratory failure. Upon chart review, she had been admitted to the hospital previously and had a pleural effusion and a pericardial effusion with cor pulmonale. Patient is placed on a facemask on arrival. We will do blood work and CT chest abdomen pelvis. Patient oxygen levels came to the low 90s on 15 L nonrebreather. Past Medical/Surgical History: PMH/PSH: Past Medical History: BREAST CA, BILAT MASTECT, IMSOMNIA Past Surgical History: BILAT MASTECT. Allergies: Allergies: Coded Allergies: No Known Drug Allergies (Unverified , 01/28/21) Family History: Family History: Reviewed with no relevant history Social History: Social History: Smoking Status: Never Smoker Alcohol Use: None Current Medications: Current Medications Current Medications Piperacillin Sod/ Tazobactam Sod 3.375 gm/Sodium Chloride 50 ml @ 100 mls/hr 1X ONCE IV Last administered on 02/23/21at 14:56; Start 02/23/21 at 14:30; Stop 02/23/21 at 14:59; Status DC Iohexol (Omnipaque 350 Mg/ml) 100 ml 1X ONCE IV Last administered on 02/23/21at 15:12; Start 02/23/21 at 14:45; Stop 02/23/21 at 14:46; Status DC Info (CONTRAST GIVEN -- Rx MONITORING) 1 each PRN DAILY PRN MC SEE COMMENTS; Start 02/23/21 at 14:45; Stop 02/25/21 at 14:44 Aspirin (Aspirin Chewable) 324 mg 1X ONCE PO ; Start 02/23/21 at 15:15; Stop 02/23/21 at 15:16; Status DC Active Scripts Active Ondansetron Odt (Ondansetron) 4 Mg Tab.rapdis 4 Mg PO TIDAC PRN Tramadol Hcl 50 Mg Tablet 50 Mg PO PRN Q6HRS PRN Reported Zolpidem Tartrate 5 Mg Tablet 5 Mg PO PRN QHS PRN Nexium Capsule (Esomeprazole Magnesium) 40 Mg Capsule.dr 1 Cap PO DAILY Arimidex (Anastrozole) 1 Mg Tablet 1 Tab PO DAILY 30 Days ROS: Review of Systems Review of System REVIEW OF SYSTEMS: GENERAL: Denies weakness SKIN: No bruising, hair changes or rashes. EYES: No blurred, double or loss of vision. NOSE AND THROAT: No history of nosebleeds, hoarseness or sore throat. HEART: No history of palpitations, chest pain or shortness of breath on exertion. LUNGS: Denies cough, hemoptysis, wheezing or shortness of breath. GASTROINTESTINAL: Denies changes in appetite, nausea, vomiting, diarrhea or constipation. GENITOURINARY: No history of frequency, urgency, hesitancy or nocturia. NEUROLOGIC: Denies history of numbness, tingling, or tremor. PSYCHIATRIC: No history of panic, anxiety or depression. ENDOCRINE: No history of heat or cold intolerance, polyuria or polydipsia. EXTREMITIES: Denies joint pain, pain on walking or stiffness. Physical Exam: Vital Signs: Vital Signs Date Time Temp Pulse Resp B/P (MAP) Pulse Ox O2 Delivery O2 Flow Rate FiO2 02/23/21 14:29 97.7 120 24 116/77 (90) 87 Room Air 6.0 97.7 Physcial Exam: GEN: No apparent distress. Alert and oriented HEENT: Normal cephalic, atraumatic, external auditory canals are patent EYES: Extraocular muscles are intact, pupil are equally round and reactive to light and accommodation MUSCULOSKELETAL: Well developed , well nourished, good range of motion ENDOCRINE: No thyromegaly was palpated LYMPHATICS: No cervical chain or axillary nodes were noted HEMATOPOIETIC: No bruising NECK: Supple, no JVD, no thyromegaly was noted LUNGS: Clear to auscultation in all lung west without rhonchi or wheezing HEART: RRR, S!, S2 present. Peripheral pulses intact, no obvious murmurs noted ABDOMEN: Soft, nontender. Positive bowel sounds, no organomegaly, normal bow el sounds EXTREMITIES: Without clubbing, cyanosis, or edema. Pedal pulses intact. Negative Homans sign NEUROLOGIC: Normal speech and tone. A&O x 3, moves all extremities, no obvious focal deficits PSYCHIATRIC: Normal affect, normal mood. Stable SKIN: No ulcerations or rashes, good skin turgor, no jaundice VASCULAR: Good capillary refill, neurovascular bundle appears to be intact Labs: Labs: Laboratory Tests Test 02/23/21 14:31 White Blood Count 10.5 x10^3/uL (4.0-11.0) Red Blood Count 4.67 x10^6/uL (3.50-5.40) Hemoglobin 14.6 g/dL (12.0-15.5) Hematocrit 43.1 % (36.0-47.0) Mean Corpuscular Volume 92 fL (79-100) Mean Corpuscular Hemoglobin 31 pg (25-35) Mean Corpuscular Hemoglobin Concent 34 g/dL (31-37) Red Cell Distribution Width 16.4 % (11.5-14.5) Platelet Count 53 x10^3/uL (140-400) Neutrophils (%) (Auto) 93 % (31-73) Lymphocytes (%) (Auto) 3 % (24-48) Monocytes (%) (Auto) 4 % (0-9) Eosinophils (%) (Auto) 0 % (0-3) Basophils (%) (Auto) 0 % (0-3) Neutrophils # (Auto) 9.8 x10^3/uL (1.8-7.7) Lymphocytes # (Auto) 0.3 x10^3/uL (1.0-4.8) Monocytes # (Auto) 0.4 x10^3/uL (0.0-1.1) Eosinophils # (Auto) 0.0 x10^3/uL (0.0-0.7) Basophils # (Auto) 0.0 x10^3/uL (0.0-0.2) Sodium Level 130 mmol/L (136-145) Potassium Level 4.7 mmol/L (3.5-5.1) Chloride Level 99 mmol/L (98-107) Carbon Dioxide Level 22 mmol/L (21-32) Anion Gap 9 (6-14) Blood Urea Nitrogen 11 mg/dL (7-20) Creatinine 0.7 mg/dL (0.6-1.0) Estimated GFR (Cockcroft-Gault) 87.5 Glucose Level 236 mg/dL (70-99) Calcium Level 8.7 mg/dL (8.5-10.1) Total Bilirubin 7.7 mg/dL (0.2-1.0) Direct Bilirubin 5.3 mg/dL (0.0-0.2) Aspartate Amino Transf (AST/SGOT) 387 U/L (15-37) Alanine Aminotransferase (ALT/SGPT) 180 U/L (14-59) Alkaline Phosphatase 516 U/L (46-116) Troponin I Quantitative 0.148 ng/mL (0.000-0.055) EZ-Fnw-G-Type Natriuretic Peptide 4304 pg/mL (0-124) Total Protein 6.5 g/dL (6.4-8.2) Albumin 2.7 g/dL (3.4-5.0) Lipase 106 U/L (73-393) Laboratory Tests Test 02/23/21 14:31 White Blood Count 10.5 x10^3/uL (4.0-11.0) Red Blood Count 4.67 x10^6/uL (3.50-5.40) Hemoglobin 14.6 g/dL (12.0-15.5) Hematocrit 43.1 % (36.0-47.0) Mean Corpuscular Volume 92 fL (79-100) Mean Corpuscular Hemoglobin 31 pg (25-35) Mean Corpuscular Hemoglobin Concent 34 g/dL (31-37) Red Cell Distribution Width 16.4 % (11.5-14.5) Platelet Count 53 x10^3/uL (140-400) Neutrophils (%) (Auto) 93 % (31-73) Lymphocytes (%) (Auto) 3 % (24-48) Monocytes (%) (Auto) 4 % (0-9) Eosinophils (%) (Auto) 0 % (0-3) Basophils (%) (Auto) 0 % (0-3) Neutrophils # (Auto) 9.8 x10^3/uL (1.8-7.7) Lymphocytes # (Auto) 0.3 x10^3/uL (1.0-4.8) Monocytes # (Auto) 0.4 x10^3/uL (0.0-1.1) Eosinophils # (Auto) 0.0 x10^3/uL (0.0-0.7) Basophils # (Auto) 0.0 x10^3/uL (0.0-0.2) Sodium Level 130 mmol/L (136-145) Potassium Level 4.7 mmol/L (3.5-5.1) Chloride Level 99 mmol/L (98-107) Carbon Dioxide Level 22 mmol/L (21-32) Anion Gap 9 (6-14) Blood Urea Nitrogen 11 mg/dL (7-20) Creatinine 0.7 mg/dL (0.6-1.0) Estimated GFR (Cockcroft-Gault) 87.5 Glucose Level 236 mg/dL (70-99) Calcium Level 8.7 mg/dL (8.5-10.1) Total Bilirubin 7.7 mg/dL (0.2-1.0) Direct Bilirubin 5.3 mg/dL (0.0-0.2) Aspartate Amino Transf (AST/SGOT) 387 U/L (15-37) Alanine Aminotransferase (ALT/SGPT) 180 U/L (14-59) Alkaline Phosphatase 516 U/L (46-116) Troponin I Quantitative 0.148 ng/mL (0.000-0.055) VH-Lor-E-Type Natriuretic Peptide 4304 pg/mL (0-124) Total Protein 6.5 g/dL (6.4-8.2) Albumin 2.7 g/dL (3.4-5.0) Lipase 106 U/L (73-393) Images: Images CXR IMPRESSION: 1. Moderate right pleural effusion, increased from prior study. 2. Right basilar airspace disease, compressive atelectasis or pneumonia. ABD US Impression: 1. Heterogeneous liver which is relatively hyperechoic in relation to adjacent renal cortex. No discrete mass is identified. The main portal vein is patent. As was noted on the same day CT, MRI is recommended to exclude an infiltrating process. 2. Thick-walled gallbladder. No stones or sludge visualized. The lumen is mostly collapsed. Wall thickening related to hepatic dysfunction or third spacing is favored more likely than cholecystitis. No sonographic Blanchard's sign was observed. 3. Mildly dilated common bile duct. No obstructing process is apparent. Attention on follow-up MRI if performed. 4. Poorly characterized pancreas on account of bowel gas. What is seen of the pancreas is within normal limits. 5. Right pleural effusion. CHEST CTA IMPRESSION: 1. There is no pulmonary embolus. 2. Mediastinal and bilateral hilar adenopathy is unchanged. 3. Unchanged moderate pericardial effusion. 4. Change moderate right pleural effusion. 5. There are a few groundglass nodules in the bilateral lower lobes and scattered tree-in-bud opacities in the right lower lobe, likely infectious/inflammatory. 6. The left hepatic lobe is heterogeneously mildly hypodense. No portal vein thrombosis is seen. Increased FDG uptake in the left hepatic lobe was noted on PET. Infiltrative process cannot be excluded. Recommend MR abdomen with and without contrast for further evaluation. 7. There is mild wall thickening of the ascending and proximal and mid transverse colon. Considerations include mild colitis versus pseudothickening due to lack of distention. 8. Moderate pelvic free fluid. Assessment/Plan Assessment/Plan Sepsis with multiple sources for etiology Acute hypoxic respiratory failure Acute metabolic encephalopathy Acute right pleural effusion Mild pericardial effusion Cor pulmonale Hyperbilirubinemia Metastatic breast cancer with liver metastasis Elevated troponin suggestive of demand ischemia Transaminitis due to congestive liver versus infiltrative metastatic disease Severe protein malnutrition Thrombocytopenia Hyponatremia Lactic acidemia likely due to metastatic disease to the liver rather than tissue hypoperfusion Diffuse colitis History of metastatic breast cancer Admit to ICU for further management Cardiology consult for pericardial effusion and cor pulmonale Pulmonology consult for pleural effusion and hypoxia GI consult for hyperbilirubinemia and obstructive jaundice Heme-onc consult Continue empiric IV antibiotics Continue IV fluids and maintain maps greater than 65 Vasopressor support as needed O2 supplementation as needed Lovenox for DVT prophylaxis Protonix GI prophylaxis ADA diet Full code Discussed with RN and SW Disposition ICU management as above Surrogate decision maker is the A total of 60 minutes of critical care time was spent in reviewing chart, labs, and images. Discussed with RN and SW. Justifications for Admission Other Justification DEE DEE NARAYANAN MD Feb 23, 2021 15:27
--- NOTE | 2021-02-23 15:38 | PDOC ---
Date of Service: DATE: 02/23/21 TIME: 15:38 Subjective: Subjective: 55 y/o female seen in ER after d/w ER physician. Please see GI consult note and progress note from last week. To ER today from oncology office w/ hypoxia after receiving pre-treatment for chemo w/ Benadryl. present to help with history. Jaundice for a couple days. Mid abdomen "feels like something is there." No vomiting, diarrhea, constipation, or bleeding. Objective: Vital Signs: Vital Signs Date Time Temp Pulse Resp B/P (MAP) Pulse Ox O2 Delivery O2 Flow Rate FiO2 02/23/21 14:29 97.7 120 24 116/77 (90) 87 Room Air 6.0 97.7 Labs: Laboratory Tests Test 02/23/21 14:31 02/23/21 15:20 White Blood Count 10.5 x10^3/uL Red Blood Count 4.67 x10^6/uL Hemoglobin 14.6 g/dL Hematocrit 43.1 % Mean Corpuscular Volume 92 fL Mean Corpuscular Hemoglobin 31 pg Mean Corpuscular Hemoglobin Concent 34 g/dL Red Cell Distribution Width 16.4 % Platelet Count 53 x10^3/uL Neutrophils (%) (Auto) 93 % Lymphocytes (%) (Auto) 3 % Monocytes (%) (Auto) 4 % Eosinophils (%) (Auto) 0 % Basophils (%) (Auto) 0 % Neutrophils # (Auto) 9.8 x10^3/uL Lymphocytes # (Auto) 0.3 x10^3/uL Monocytes # (Auto) 0.4 x10^3/uL Eosinophils # (Auto) 0.0 x10^3/uL Basophils # (Auto) 0.0 x10^3/uL Platelet Estimate Pending Sodium Level 130 mmol/L Potassium Level 4.7 mmol/L Chloride Level 99 mmol/L Carbon Dioxide Level 22 mmol/L Anion Gap 9 Blood Urea Nitrogen 11 mg/dL Creatinine 0.7 mg/dL Estimated GFR (Cockcroft-Gault) 87.5 Glucose Level 236 mg/dL Lactic Acid Level 3.6 mmol/L Calcium Level 8.7 mg/dL Total Bilirubin 7.7 mg/dL Direct Bilirubin 5.3 mg/dL Aspartate Amino Transf (AST/SGOT) 387 U/L Alanine Aminotransferase (ALT/SGPT) 180 U/L Alkaline Phosphatase 516 U/L Troponin I Quantitative 0.148 ng/mL CO-Gln-K-Type Natriuretic Peptide 4304 pg/mL Total Protein 6.5 g/dL Albumin 2.7 g/dL Lipase 106 U/L Ammonia 45 mcmol/L Imaging: CT C/A/P IMPRESSION: 1. There is no pulmonary embolus. 2. Mediastinal and bilateral hilar adenopathy is unchanged. 3. Unchanged moderate pericardial effusion. 4. Change moderate right pleural effusion. 5. There are a few groundglass nodules in the bilateral lower lobes and scattered tree-in-bud opacities in the right lower lobe, likely infectious/inflammatory. 6. The left hepatic lobe is heterogeneously mildly hypodense. No portal vein thrombosis is seen. Increased FDG uptake in the left hepatic lobe was noted on PET. Infiltrative process cannot be excluded. Recommend MR abdomen with and without contrast for further evaluation. 7. There is mild wall thickening of the ascending and proximal and mid tr ansverse colon. Considerations include mild colitis versus pseudothickening due to lack of distention. 8. Moderate pelvic free fluid. PE: GEN: appears ill HEENT: Atraumatic, PERRL LUNGS: breathing mask, diminished HEART: tachycardic ABD: quiet BS, S/ND/NT EXTREMITY: No edema SKIN: +jaundice NEURO/PSYCH: A & O 3, drowsy A/P: Metastatic breast cancer - was to start palliative chemo today, sent to ER w/ hypoxia Right pleural effusion, pericardial effusion - had thoracentesis last week - cardiology following here Jaundice - worse Abnormal liver imaging - on CT: left hepatic lobe is heterogeneously mildly hypodense - last oncology note discussed possibility of liver mets H/o gastric intestinal metaplasia H/o GERD - resumed PPI last week CRC screen - UTD gastric cancer, pancreatic cancer -- CT as above. Awaiting US. Difficult situation w/ metastatic cancer and complications - will review GI recommendations w/ Dr. Quispe. Justicifation of Admission Dx: Justifications for Admission: Justification of Admission Dx: Yes SHASHANK GALARZA Feb 23, 2021 15:38
--- NOTE | 2021-02-23 15:43 | RAD ---
PQRS Compliance Statement: One or more of the following individualized dose reduction techniques were utilized for this examinat ion: 1. Automated exposure control 2. Adjustment of the mA and/or kV according to patient size 3. Use of iterative reconstruction technique CTA CHEST_ABDOMEN_AND PELVIS Clinical Indication: Reason: HYPOXIA, , JAUNDICE history of breast cancer. Comparison: CT PE February 15, 2021. Technique: Helical CT of the chest was performed after the administration of 100 cc of Omnipaque 350 intravenous contrast according to PE protocol. Axial and coronal reconstructions were obtained. 3- D MIP images were constructed to better evaluate the pulmonary arteries. Helical CT imaging continued in the abdomen and pelvis. Findings: Pulmonary arteries are adequately opacified. There is no evidence of pulmonary embolism. Pulmonary tr unk is dilated suggesting portal hypertension. Right chest Port-A-Cath. There is no thoracic aortic dissection. The thoracic aorta is normal caliber . Bilateral mastectomy is redemonstrated. There are right axillary surgical clips. Mediastinal and bi lateral hilar adenopathy is stable. There is moderate pericardial effusion, unchanged. The cardiac si ze is normal. There is moderate right pleural effusion, unchanged. The central airways are patent. Radiation fibros is anterior right lung is stable. Right apical nodule is unchanged, image 38. There is mild compressi ve atelectasis in the right lower lobe adjacent to the effusion. In the right lower lobe there are ne w subcentimeter groundglass nodules and scattered tree-in-bud opacities. Nodule in the left upper lob e is unchanged, ground glass halo has decreased. 2 nodular opacities in the left lower lobe are uncha nged, image 142. There are a few new subcentimeter groundglass nodules in the left lower lobe that ar e probably infectious/inflammatory. The left hepatic lobe is heterogeneously mildly hypodense. Increased FDG uptake was seen in this dist ribution on PET. Infiltrative process cannot be excluded. The portal vein is without thrombus, there is admixing of contrast and unopacified blood. The gallbladder is contracted accentuating the wall th ickness. There is trace pericholecystic fluid. Spleen size is normal. The pancreas and adrenal glands and abdominal aorta and kidneys are normal. No obvious abnormality the stomach. There is moderate induration of the upper central mesentery, nons pecific. There is no small bowel obstruction. The appendix is normal. There is mild wall thickening o f the ascending and proximal and mid transverse colon. Atrophic uterus. There is moderate pelvic free fluid. Urinary bladder is normal. No osteolytic or blastic lesion is seen. IMPRESSION: 1. There is no pulmonary embolus. 2. Mediastinal and bilateral hilar adenopathy is unchanged. 3. Unchanged moderate pericardial effusion. 4. Change moderate right pleural effusion. 5. There are a few groundglass nodules in the bilateral lower lobes and scattered tree-in-bud opacit ies in the right lower lobe, likely infectious/inflammatory. 6. The left hepatic lobe is heterogeneously mildly hypodense. No portal vein thrombosis is seen. Inc reased FDG uptake in the left hepatic lobe was noted on PET. Infiltrative process cannot be excluded. Recommend MR abdomen with and without contrast for further evaluation. 7. There is mild wall thickening of the ascending and proximal and mid transverse colon. Considerati ons include mild colitis versus pseudothickening due to lack of distention. 8. Moderate pelvic free fluid. Electronically signed by: Pelon Courtney MD (02/23/2021 3:40 PM) [id number]
--- NOTE | 2021-02-23 15:47 | PDOC ---
RICKEY RIOJAS [employer] TESTER 02/23/21 1547: CARDIO Progress Notes Date and Time Date of Service 02/23/2021 Time of Evaluation 1530 Subjective Subjective: No Chest Pain, No Palpitations, Other (feels SOA) Vitals Vitals Vital Signs Date Time Temp Pulse Resp B/P (MAP) Pulse Ox O2 Delivery O2 Flow Rate FiO2 02/23/21 14:29 97.7 120 24 116/77 (90) 87 Room Air 6.0 97.7 Weight Weight [ ] Laboratory Labs Laboratory Tests Test 02/23/21 14:31 White Blood Count 10.5 x10^3/uL (4.0-11.0) Red Blood Count 4.67 x10^6/uL (3.50-5.40) Hemoglobin 14.6 g/dL (12.0-15.5) Hematocrit 43.1 % (36.0-47.0) Mean Corpuscular Volume 92 fL (79-100) Mean Corpuscular Hemoglobin 31 pg (25-35) Mean Corpuscular Hemoglobin Concent 34 g/dL (31-37) Red Cell Distribution Width 16.4 % (11.5-14.5) Platelet Count 53 x10^3/uL (140-400) Neutrophils (%) (Auto) 93 % (31-73) Lymphocytes (%) (Auto) 3 % (24-48) Monocytes (%) (Auto) 4 % (0-9) Eosinophils (%) (Auto) 0 % (0-3) Basophils (%) (Auto) 0 % (0-3) Neutrophils # (Auto) 9.8 x10^3/uL (1.8-7.7) Lymphocytes # (Auto) 0.3 x10^3/uL (1.0-4.8) Monocytes # (Auto) 0.4 x10^3/uL (0.0-1.1) Eosinophils # (Auto) 0.0 x10^3/uL (0.0-0.7) Basophils # (Auto) 0.0 x10^3/uL (0.0-0.2) Sodium Level 130 mmol/L (136-145) Potassium Level 4.7 mmol/L (3.5-5.1) Chloride Level 99 mmol/L (98-107) Carbon Dioxide Level 22 mmol/L (21-32) Anion Gap 9 (6-14) Blood Urea Nitrogen 11 mg/dL (7-20) Creatinine 0.7 mg/dL (0.6-1.0) Estimated GFR (Cockcroft-Gault) 87.5 Glucose Level 236 mg/dL (70-99) Calcium Level 8.7 mg/dL (8.5-10.1) Total Bilirubin 7.7 mg/dL (0.2-1.0) Direct Bilirubin 5.3 mg/dL (0.0-0.2) Aspartate Amino Transf (AST/SGOT) 387 U/L (15-37) Alanine Aminotransferase (ALT/SGPT) 180 U/L (14-59) Alkaline Phosphatase 516 U/L (46-116) Troponin I Quantitative 0.148 ng/mL (0.000-0.055) BQ-Kio-J-Type Natriuretic Peptide 4304 pg/mL (0-124) Total Protein 6.5 g/dL (6.4-8.2) Albumin 2.7 g/dL (3.4-5.0) Lipase 106 U/L (73-393) Physical Exam HEENT: Neck Supple W Full Motion Chest: Symmetric LUNGS: Other (diminished) Heart: RRR (SR/ST) Abdomen: Soft N/T Extremities: No Calf Tenderness, Other (1+ bilateral Le pitting edema) Neurology: alert, oriented, follow commands Other Exams jaundice Assessment Assessment HPI: This is a 55 yo female admitted for complains of SOA. She was recently discharge on 02/18/2021 and at that time she was noted with pleural effusion, small pericardial effusion, severely dilated RV but negative for PE with underlying metastatic breast CA and transaminitis with liver mets. She then have thoracentesis which improved symptoms on 02/16/2021. She was the oncology clinic and was noted to be restless and hypoxic with increasing LFTs. She was getting premedicated today for chemo when she got very SOA. She did have RHC on 02/15/2021 which revealed normal BIv filling pressure with normal CO, moderate PHTN with no evidence of cardiac tamponade. Presently she is still SOA but better with NRB. Her BP is marginal with tachycardia but denies any chest pain she has 2+ bilateral radial pulses with no electric alternans. 1. Acute hypoxic respiratory failure: multifactorial as noted below 2. Mild to moderate pericardial effusion: no hemodynamic compromise 3. Increasing right pleural effusion 4. Metastatic breast CA with metastasis to liver and likely tumor infiltration to cardiopulmonary region with malignant effusion 5. Severe pulmonary HTN/cor pulmonale: due to CA 6. Increasing transaminitis with jaundice 7. Lactic acidosis 8. Mild troponin elevation: suspect demand mediated type 2 with above culprits. 9. Thrombocytopenia: PLT 53 Recommendations 1. Transfer to ICU. Continue NRB. Consult pulmonary 2. Limited TTE. IVF x1, discussed with ER 3. Empiric antibiotics was started 4. Consult GI and Hemonc Justicifation of Admission Dx: Justifications for Admission: Justification of Admission Dx: Yes PARIS SCANLON MD 02/23/21 1753: CARDIO Progress Notes Assessment Assessment Patient seen and examined I agree with our nurse practitioners assessment and plan. This is a 55 yo female admitted for complains of SOA. She was recently discharge on 02/18/2021 and at that time she was noted with pleural effusion, small pericardial effusion, severely dilated RV but negative for PE with underlying metastatic breast CA and transaminitis with liver mets. She then have thoracentesis which improved symptoms on 02/16/2021. She was the oncology clinic and was noted to be restless and hypoxic with increasing LFTs. She was getting premedicated today for chemo when she got very SOA. She did have RHC on 02/15/2021 which revealed normal BIv filling pressure with normal CO, moderate PHTN with no evidence of cardiac tamponade. Presently she is still SOA but better with NRB. Her BP is marginal with tachycardia but denies any chest pain she has 2+ bilateral radial pulses with no electric alternans. Acute hypoxic respiratory failure: multifactorial. Transferred from the oncology clinic today. Right heart catheterization as above. Proceeding with echocardiogram. Mild to moderate pericardial effusion: no hemodynamic compromise. Echo as above. No pulsus paradoxus. Increasing right pleural effusion. History of a recent thoracentesis Metastatic breast CA with metastasis to liver and likely tumor infiltration to cardiopulmonary region with malignant effusion Severe pulmonary HTN/cor pulmonale: due to CA Mild troponin elevation: suspect demand mediated type 2 with above culprits. Thrombocytopenia: PLT 53 RICKEY RIOJAS [employer] TESTER Feb 23, 2021 15:47 PARIS SCANLON MD Feb 23, 2021 17:53
[2021-02-23] MEDS ORDERED: SENNOSIDES 8.6 MG TABLET PO PRN (16:00)
[2021-02-23] MEDS ORDERED: ONDANSETRON PF 4 MG/2 ML VIAL. IVP PRN (16:00)
[2021-02-23] MEDS ORDERED: DEXTROSE 50% 25 GM / 50ML DISP.SYRIN. IV PRN (16:00)
[2021-02-23] MEDS ORDERED: DOCUSATE SODIUM 100 MG CAPSULE. PO PRN (16:00)
[2021-02-23] MEDS ORDERED: PIP/TAZO PER PHARMACY MC PRN (16:00)
[2021-02-23] MEDS ORDERED: IV NORMAL SALINE 500ML BAG 500 ML IV ONE ×2 (16:15→19:45)
[2021-02-23 17:16] LABS: % BANDS 7 % (0-9); % LYMPHS 1 % (24-48); % MONOS 3 % (0-10); % SEGS 89 % (35-66); PLT ESTIMATE DECREASED (ADEQUATE)
[2021-02-23 17:18] LABS: SCHISTOCYTES OCC; TOXIC GRANULATION SLIGHT
--- NOTE | 2021-02-23 17:22 | RAD ---
STUDY: US Abdomen Complete INDICATION: Jaundice. COMPARISON: Limited abdominal ultrasound 01/27/2020; same day CT TECHNIQUE: Real-time grayscale and color Doppler sonographic evaluation of the abdomen. Findings: Pancreas: Limited visualization on account of bowel gas. The visualized portion is without a discrete mass or ductal dilatation. Liver: Measures within normal limits for size at 15.5 cm longitudinal. Heterogeneous parenchymal echo genicity which is in general hyperechoic when correlating with adjacent renal cortex. No discrete mas s by ultrasound. Aorta/IVC/Main Portal Vein: Unremarkable IVC at the liver. The visualized aorta is nonaneurysmal. The main portal vein is patent. Gall Bladder: The gallbladder wall is thickened. The lumen is partially collapsed. No stones or sludg e visualized but assessment is limited. Common Bile Duct: Measures prominent in transverse dimension at just under 0.7 cm. Right Kidney: Measures 10.8 cm in length. Normal cortical thickness and echogenicity. No hydronephros is. Left Kidney: Measures 9.3 cm in length. Assessment is limited by bowel gas. Cortical thickness and ec hogenicity appears to be within normal limits. No hydronephrosis. Spleen: Within normal limits for size. Miscellaneous: Right-sided pleural effusion. Impression: 1. Heterogeneous liver which is relatively hyperechoic in relation to adjacent renal cortex. No disc rete mass is identified. The main portal vein is patent. As was noted on the same day CT, MRI is nicholas mmended to exclude an infiltrating process. 2. Thick-walled gallbladder. No stones or sludge visualized. The lumen is mostly collapsed. Wall thi ckening related to hepatic dysfunction or third spacing is favored more likely than cholecystitis. No sonographic Blanchard's sign was observed. 3. Mildly dilated common bile duct. No obstructing process is apparent. Attention on follow-up MRI i f performed. 4. Poorly characterized pancreas on account of bowel gas. What is seen of the pancreas is within nor mal limits. 5. Right pleural effusion. Electronically signed by: GERALD HENNESSY MD (02/23/2021 5:19 PM) [facility]
[2021-02-23 17:33] LABS: BASE EXCESS COOX -2 mmol/L (-3-3); HCO3 COOX 21 mmol/L (21-28); METHEMOGLOBIN 0.5 % (0.0-1.9); PCO2 COOX 29 mmHg (35-46); PO2 COOX 64 mmHg (75-108); SAT O2 COOX 92 % (92-99)
[2021-02-23 18:36] VITALS: BP 88/59
--- NOTE | 2021-02-23 18:49 | NUR ---
The patient, ZACK MOYA, 55 y/o, F admitted by DEE DEE NARAYANAN MD, was given written information regarding hospital policies, unit procedures and contact persons. Valuables were checked and left with pt in room. Pt settled in room and admission vitals taken.
[2021-02-23] MEDS: PIPERACILLIN/TAZOBACTAM 3.375 GM in IV NORMAL SALINE 50ML 50 ML IV SCH ×2 (19:48→23:41)
[2021-02-23 20:00] VITALS: BP 87/67
[2021-02-23] MEDS: ACETAMINOPHEN 325 MG TABLET. PO PRN (20:43)
[2021-02-23 21:00] VITALS: BP 90/55
[2021-02-23] MEDS ORDERED: ENOXAPARIN 40 MG/0.4 ML SYRINGE. SQ SCH (21:00)
[2021-02-23] MEDS: ANASTROZOLE 1 MG TABLET PO SCH (21:42)
[2021-02-23 22:00] VITALS: BP 85/59
[2021-02-23 23:00] VITALS: BP 79/54
[2021-02-24] VITALS (23 sets, daily range): BP systolic 77–100; BP diastolic 50–76
[2021-02-24 03:34] LABS: BASO % 1 % (0-3); EOS % 0 % (0-3); HEMATOCRIT 37.7 % (36.0-47.0); HEMOGLOBIN 12.5 g/dL (12.0-15.5); LYMPH # 0.7 x10^3/uL (1.0-4.8); LYMPH % 9 % (24-48); MEAN CORPUSCULAR HEMOGLOBIN 31 pg (25-35); MEAN CORPUSCULAR HGB CONC 33 g/dL (31-37); MEAN CORPUSCULAR VOLUME 93 fL (79-100); MONO # 0.3 x10^3/uL (0.0-1.1); MONO % 5 % (0-9); NEUT # 6.2 x10^3/uL (1.8-7.7); NEUT % 86 % (31-73); RED BLOOD COUNT 4.04 x10^6/uL (3.50-5.40); RED CELL DISTRIBUTION WIDTH 18.3 % (11.5-14.5); WHITE BLOOD COUNT 7.3 x10^3/uL (4.0-11.0)
[2021-02-24 03:42] LABS: PLATELET COUNT 20 x10^3/uL (140-400)
[2021-02-24 03:50] LABS: CALCIUM 7.9 mg/dL (8.5-10.1); CREATININE 0.6 mg/dL (0.6-1.0); GFR 104.6; PHOSPHORUS 3.1 mg/dL (2.6-4.7); POTASSIUM 4.6 mmol/L (3.5-5.1)
[2021-02-24 03:53] LABS: ALBUMIN 2.2 g/dL (3.4-5.0); DIRECT BILIRUBIN 4.9 mg/dL (0.0-0.2); TOTAL BILIRUBIN 7.5 mg/dL (0.2-1.0); TOTAL PROTEIN 5.4 g/dL (6.4-8.2)
[2021-02-24] MEDS: PIPERACILLIN/TAZOBACTAM 3.375 GM in IV NORMAL SALINE 50ML 50 ML IV SCH ×3 (06:04→17:36)
--- NOTE | 2021-02-24 08:23 | PDOC2 ---
CONSULT Date of Consult Date of Consult DATE: 02/24/21 TIME: 08:19 Source Source: Caregiver, Chart review History of Present Illness Reason for Visit: Patient is a 55-year-old female with metastatic breast cancer who is known to me from the office. She has a history of ER positive HER-2 positive breast cancer for which she underwent surgery and adjuvant HER-2 directed therapy in 2018. She had been on Arimidex. She was recently found to have diffuse metastatic disease with pulmonary, bone, possibly liver and malignant pleural and pericardial effusion. She was recently hospitalized due to severe exertional dyspnea and was found to have pulmonary hypertension of undetermined etiology. Echocardiogram at the time did not indicate any evidence of pericardial effusion. 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 She was seen in the office yesterday to begin palliative chemotherapy for disease control and improvement of symptoms. She received premedication with Benadryl, dexamethasone, Granisetron and famotidine. She received the planned doses of trastuzumab and Pertuzumab. Prior to beginning paclitaxel IV, she was found to have increasing work of breathing and was requiring supplemental oxygen of 6 L by nasal cannula in comparison to 4 to 5 L of supplemental oxygen earlier in the day. She was also found to have increased somnolence. Bilirubin and LFTs have been trending up recently likely secondary to diffuse liver metastasis. Due to her tenuous clinical status, it was felt that the potential risks from administration of paclitaxel (a chemotherapy agent known to be associated with allergic reactions and bronchospasm) outweighed the potential benefits. She was asked to go to the emergency room. Further evaluation of abnormal LFTs and her symptoms with a CT of the chest, abdomen and pelvis showed stable pulmonary metastasis, pleural effusion, pericardial effusion. Infiltrate of left lobe mass was seen in the liver. MRI was recommended for further evaluation of the same.She is currently on a nonrebreather requiring 15 L supplemental oxygen. Medical oncology consultation has been sought due to patient's history of breast cancer Past Medical History GI: GERD, Peptic Ulcer disease Heme/Onc: Cancer Psych: Anxiety Past Surgical History Past Surgical History: Tubal Ligation Social History ALCOHOL: none Drugs: None Lives: with Family Current Problem List Problem List Problems Medical Problems: (1) Hyperbilirubinemia Status: Acute (2) Lactic acidosis Status: Acute (3) Metastatic breast cancer Status: Acute (4) Pleural effusion Status: Acute (5) Respiratory failure with hypoxia Status: Acute (6) Tachycardia Status: Acute Current Medications Current Medications Current Medications Piperacillin Sod/ Tazobactam Sod 3.375 gm/Sodium Chloride 50 ml @ 100 mls/hr 1X ONCE IV Last administered on 02/23/21at 14:56; Start 02/23/21 at 14:30; Stop 02/23/21 at 14:59; Status DC Iohexol (Omnipaque 350 Mg/ml) 100 ml 1X ONCE IV Last administered on 02/23/21at 15:12; Start 02/23/21 at 14:45; Stop 02/23/21 at 14:46; Status DC Info (CONTRAST GIVEN -- Rx MONITORING) 1 each PRN DAILY PRN MC SEE COMMENTS; Start 02/23/21 at 14:45; Stop 02/25/21 at 14:44 Aspirin (Aspirin Chewable) 324 mg 1X ONCE PO Last administered on 02/23/21at 15:43; Start 02/23/21 at 15:15; Stop 02/23/21 at 15:16; Status DC Sennosides (Senna) 17.2 mg PRN BID PRN PO CONSTIPATION; Start 02/23/21 at 16:00 Docusate Sodium (Colace) 100 mg PRN DAILY PRN PO HARD STOOLS; Start 02/23/21 at 16:00 Ondansetron HCl (Zofran) 4 mg PRN Q6HRS PRN IVP NAUSEA/VOMITING; Start 02/23/21 at 16:00 Dextrose (Dextrose 50%-Water Syringe) 12.5 gm PRN Q15MIN PRN IV SEE COMMENTS; Start 02/23/21 at 16:00 Acetaminophen (Tylenol) 650 mg PRN Q4HRS PRN PO TEMP OVER 100.4F OR MILD PAIN Last administered on 02/23/21at 20:43; Start 02/23/21 at 16:00 Enoxaparin Sodium (Lovenox 40mg Syringe) 40 mg Q24H SQ Last administered on 02/23/21at 20:44; Start 02/23/21 at 21:00 Piperacillin Sod/ Tazobactam Sod (Zosyn Per Pharmacy) 1 each PRN DAILY PRN MC SEE COMMENTS; Start 02/23/21 at 16:00 Pantoprazole Sodium (PROTONIX VIAL for IV PUSH) 40 mg DAILY IVP ; Start 02/24/21 at 09:00 Sodium Chloride 500 ml @ 500 mls/hr 1X ONCE IV Last administered on 02/23/21at 16:42; Start 02/23/21 at 16:15; Stop 02/23/21 at 17:14; Status DC Piperacillin Sod/ Tazobactam Sod 3.375 gm/Sodium Chloride 50 ml @ 100 mls/hr Q6HRS IV Last administered on 02/24/21at 06:04; Start 02/23/21 at 18:00 Sodium Chloride 500 ml @ 500 mls/hr 1X ONCE IV Last administered on 02/23/21at 19:48; Start 02/23/21 at 19:45; Stop 02/23/21 at 20:44; Status DC Anastrozole (Arimidex) 1 mg DAILY PO Last administered on 02/23/21at 21:42; Start 02/23/21 at 22:00 Active Scripts Active Ondansetron Odt (Ondansetron) 4 Mg Tab.rapdis 4 Mg PO TIDAC PRN Tramadol Hcl 50 Mg Tablet 50 Mg PO PRN Q6HRS PRN Reported Zolpidem Tartrate 5 Mg Tablet 5 Mg PO PRN QHS PRN Nexium Capsule (Esomeprazole Magnesium) 40 Mg Capsule.dr 1 Cap PO DAILY Arimidex (Anastrozole) 1 Mg Tablet 1 Tab PO DAILY 30 Days Allergies Allergies: Coded Allergies: No Known Drug Allergies (Unverified , 01/28/21) ROS General: YES: Fatigue, Malaise Eyes: No Eye Pain, No Itchy Eyes, No Loss of vision HEENT: No: Oral lesions, Sinus pain ALLERGY AND IMMUNOLOGY: No: Nasal Congestion Hematological and Lymphatic: No: Brusing, Pallor ENDOCRINE: YES: Malaise/lethargy; No: Mood Swings Respiratory: YES: Shortness of breath, SOB with excertion; No: Hemoptysis, Pleuritic Pain Cardiovascular: yes Palpitations; No Chest Pain Gastrointestinal: No Nausea, No Vomiting, No Diarrhea, No Constipation Genitourinary: No Dysuria Musculoskeletal: Yes Gait Disturbance; No Joint Swelling, No Muscle Pain Neurological: Yes Dizziness, Yes Headaches; No Impaired Coord/balance Skin: Yes Dry Skin; No Mole Changes Physical Exam General: Alert, Oriented X3, moderate distress HEENT: Atraumatic Lungs: Clear to auscultation Heart: Normal S1, Normal S2, Other (Tachycardia noted) Abdomen: Normal bowel sounds, Soft Extremities: No cyanosis Skin: No breakdown Neuro: Strength at 5/5 X4 ext MUSCULOSKELETAL: No joint tenderness, No muscular tenderness noted Vitals VITALS Vital Signs Date Time Temp Pulse Resp B/P (MAP) Pulse Ox O2 Delivery O2 Flow Rate FiO2 02/24/21 08:00 Non-Rebreather 15.0 02/24/21 07:00 105 22 91/66 (74) 92 02/24/21 05:00 97.5 97.5 Labs Labs Laboratory Tests Test 02/23/21 14:31 02/23/21 15:20 02/23/21 17:05 02/23/21 17:20 White Blood Count 10.5 x10^3/uL (4.0-11.0) Red Blood Count 4.67 x10^6/uL (3.50-5.40) Hemoglobin 14.6 g/dL (12.0-15.5) Hematocrit 43.1 % (36.0-47.0) Mean Corpuscular Volume 92 fL (79-100) Mean Corpuscular Hemoglobin 31 pg (25-35) Mean Corpuscular Hemoglobin Concent 34 g/dL (31-37) Red Cell Distribution Width 16.4 % (11.5-14.5) Platelet Count 53 x10^3/uL (140-400) Neutrophils (%) (Auto) 93 % (31-73) Lymphocytes (%) (Auto) 3 % (24-48) Monocytes (%) (Auto) 4 % (0-9) Eosinophils (%) (Auto) 0 % (0-3) Basophils (%) (Auto) 0 % (0-3) Neutrophils # (Auto) 9.8 x10^3/uL (1.8-7.7) Lymphocytes # (Auto) 0.3 x10^3/uL (1.0-4.8) Monocytes # (Auto) 0.4 x10^3/uL (0.0-1.1) Eosinophils # (Auto) 0.0 x10^3/uL (0.0-0.7) Basophils # (Auto) 0.0 x10^3/uL (0.0-0.2) Segmented Neutrophils % 89 % (35-66) Band Neutrophils % 7 % (0-9) Lymphocytes % 1 % (24-48) Monocytes % 3 % (0-10) Toxic Granulation Slight Platelet Estimate Decreased (ADEQUATE) Schistocytes Occ Sodium Level 130 mmol/L (136-145) Potassium Level 4.7 mmol/L (3.5-5.1) Chloride Level 99 mmol/L (98-107) Carbon Dioxide Level 22 mmol/L (21-32) Anion Gap 9 (6-14) Blood Urea Nitrogen 11 mg/dL (7-20) Creatinine 0.7 mg/dL (0.6-1.0) Estimated GFR (Cockcroft-Gault) 87.5 Glucose Level 236 mg/dL (70-99) Lactic Acid Level 3.6 mmol/L (0.4-2.0) Calcium Level 8.7 mg/dL (8.5-10.1) Total Bilirubin 7.7 mg/dL (0.2-1.0) Direct Bilirubin 5.3 mg/dL (0.0-0.2) Aspartate Amino Transf (AST/SGOT) 387 U/L (15-37) Alanine Aminotransferase (ALT/SGPT) 180 U/L (14-59) Alkaline Phosphatase 516 U/L (46-116) Troponin I Quantitative 0.148 ng/mL (0.000-0.055) [id number]-[id number]-Type Natriuretic Peptide 4304 pg/mL (0-124) Total Protein 6.5 g/dL (6.4-8.2) Albumin 2.7 g/dL (3.4-5.0) Lipase 106 U/L (73-393) Ammonia 45 mcmol/L (11-34) SARS-CoV-2 RNA (SANTY) Negative (Negative) O2 Saturation 92 % (92-99) Arterial Blood pH 7.47 (7.35-7.45) Arterial Blood pCO2 at Patient Temp 29 mmHg (35-46) Arterial Blood pO2 at Patient Temp 64 mmHg (75-108) Arterial Blood HCO3 21 mmol/L (21-28) Arterial Blood Base Excess -2 mmol/L (-3-3) Oxyhemoglobin 91.0 % Methemoglobin 0.5 % (0.0-1.9) Carbon Monoxide, Quantitative 0.5 % (0.0-1.9) FiO2 100 nrm Test 02/23/21 18:10 02/23/21 18:35 02/23/21 22:32 02/24/21 03:15 SARS-CoV-2 Antigen (Rapid) Negative (NEGATIVE) Lactic Acid Level 4.5 mmol/L (0.4-2.0) 3.5 mmol/L (0.4-2.0) 2.2 mmol/L (0.4-2.0) White Blood Count 7.3 x10^3/uL (4.0-11.0) Red Blood Count 4.04 x10^6/uL (3.50-5.40) Hemoglobin 12.5 g/dL (12.0-15.5) Hematocrit 37.7 % (36.0-47.0) Mean Corpuscular Volume 93 fL (79-100) Mean Corpuscular Hemoglobin 31 pg (25-35) Mean Corpuscular Hemoglobin Concent 33 g/dL (31-37) Red Cell Distribution Width 18.3 % (11.5-14.5) Platelet Count 20 x10^3/uL (140-400) Neutrophils (%) (Auto) 86 % (31-73) Lymphocytes (%) (Auto) 9 % (24-48) Monocytes (%) (Auto) 5 % (0-9) Eosinophils (%) (Auto) 0 % (0-3) Basophils (%) (Auto) 1 % (0-3) Neutrophils # (Auto) 6.2 x10^3/uL (1.8-7.7) Lymphocytes # (Auto) 0.7 x10^3/uL (1.0-4.8) Monocytes # (Auto) 0.3 x10^3/uL (0.0-1.1) Eosinophils # (Auto) 0.0 x10^3/uL (0.0-0.7) Basophils # (Auto) 0.0 x10^3/uL (0.0-0.2) Sodium Level 138 mmol/L (136-145) Potassium Level 4.6 mmol/L (3.5-5.1) Chloride Level 105 mmol/L (98-107) Carbon Dioxide Level 25 mmol/L (21-32) Anion Gap 8 (6-14) Blood Urea Nitrogen 12 mg/dL (7-20) Creatinine 0.6 mg/dL (0.6-1.0) Estimated GFR (Cockcroft-Gault) 104.6 Glucose Level 150 mg/dL (70-99) Calcium Level 7.9 mg/dL (8.5-10.1) Phosphorus Level 3.1 mg/dL (2.6-4.7) Magnesium Level 2.0 mg/dL (1.8-2.4) Total Bilirubin 7.5 mg/dL (0.2-1.0) Direct Bilirubin 4.9 mg/dL (0.0-0.2) Aspartate Amino Transf (AST/SGOT) 321 U/L (15-37) Alanine Aminotransferase (ALT/SGPT) 154 U/L (14-59) Alkaline Phosphatase 406 U/L (46-116) Total Protein 5.4 g/dL (6.4-8.2) Albumin 2.2 g/dL (3.4-5.0) Test 02/24/21 05:35 Prothrombin Time 16.0 SEC (11.7-14.0) Prothromb Time International Ratio 1.3 (0.8-1.1) Laboratory Tests Test 02/23/21 14:31 02/23/21 15:20 02/23/21 17:05 02/23/21 17:20 White Blood Count 10.5 x10^3/uL (4.0-11.0) Red Blood Count 4.67 x10^6/uL (3.50-5.40) Hemoglobin 14.6 g/dL (12.0-15.5) Hematocrit 43.1 % (36.0-47.0) Mean Corpuscular Volume 92 fL (79-100) Mean Corpuscular Hemoglobin 31 pg (25-35) Mean Corpuscular Hemoglobin Concent 34 g/dL (31-37) Red Cell Distribution Width 16.4 % (11.5-14.5) Platelet Count 53 x10^3/uL (140-400) Neutrophils (%) (Auto) 93 % (31-73) Lymphocytes (%) (Auto) 3 % (24-48) Monocytes (%) (Auto) 4 % (0-9) Eosinophils (%) (Auto) 0 % (0-3) Basophils (%) (Auto) 0 % (0-3) Neutrophils # (Auto) 9.8 x10^3/uL (1.8-7.7) Lymphocytes # (Auto) 0.3 x10^3/uL (1.0-4.8) Monocytes # (Auto) 0.4 x10^3/uL (0.0-1.1) Eosinophils # (Auto) 0.0 x10^3/uL (0.0-0.7) Basophils # (Auto) 0.0 x10^3/uL (0.0-0.2) Segmented Neutrophils % 89 % (35-66) Band Neutrophils % 7 % (0-9) Lymphocytes % 1 % (24-48) Monocytes % 3 % (0-10) Toxic Granulation Slight Platelet Estimate Decreased (ADEQUATE) Schistocytes Occ Sodium Level 130 mmol/L (136-145) Potassium Level 4.7 mmol/L (3.5-5.1) Chloride Level 99 mmol/L (98-107) Carbon Dioxide Level 22 mmol/L (21-32) Anion Gap 9 (6-14) Blood Urea Nitrogen 11 mg/dL (7-20) Creatinine 0.7 mg/dL (0.6-1.0) Estimated GFR (Cockcroft-Gault) 87.5 Glucose Level 236 mg/dL (70-99) Lactic Acid Level 3.6 mmol/L (0.4-2.0) Calcium Level 8.7 mg/dL (8.5-10.1) Total Bilirubin 7.7 mg/dL (0.2-1.0) Direct Bilirubin 5.3 mg/dL (0.0-0.2) Aspartate Amino Transf (AST/SGOT) 387 U/L (15-37) Alanine Aminotransferase (ALT/SGPT) 180 U/L (14-59) Alkaline Phosphatase 516 U/L (46-116) Troponin I Quantitative 0.148 ng/mL (0.000-0.055) UL-[id number]-Type Natriuretic Peptide 4304 pg/mL (0-124) Total Protein 6.5 g/dL (6.4-8.2) Albumin 2.7 g/dL (3.4-5.0) Lipase 106 U/L (73-393) Ammonia 45 mcmol/L (11-34) SARS-CoV-2 RNA (SANTY) Negative (Negative) O2 Saturation 92 % (92-99) Arterial Blood pH 7.47 (7.35-7.45) Arterial Blood pCO2 at Patient Temp 29 mmHg (35-46) Arterial Blood pO2 at Patient Temp 64 mmHg (75-108) Arterial Blood HCO3 21 mmol/L (21-28) Arterial Blood Base Excess -2 mmol/L (-3-3) Oxyhemoglobin 91.0 % Methemoglobin 0.5 % (0.0-1.9) Carbon Monoxide, Quantitative 0.5 % (0.0-1.9) FiO2 100 nrm Test 02/23/21 18:10 02/23/21 18:35 02/23/21 22:32 02/24/21 03:15 SARS-CoV-2 Antigen (Rapid) Negative (NEGATIVE) Lactic Acid Level 4.5 mmol/L (0.4-2.0) 3.5 mmol/L (0.4-2.0) 2.2 mmol/L (0.4-2.0) White Blood Count 7.3 x10^3/uL (4.0-11.0) Red Blood Count 4.04 x10^6/uL (3.50-5.40) Hemoglobin 12.5 g/dL (12.0-15.5) Hematocrit 37.7 % (36.0-47.0) Mean Corpuscular Volume 93 fL (79-100) Mean Corpuscular Hemoglobin 31 pg (25-35) Mean Corpuscular Hemoglobin Concent 33 g/dL (31-37) Red Cell Distribution Width 18.3 % (11.5-14.5) Platelet Count 20 x10^3/uL (140-400) Neutrophils (%) (Auto) 86 % (31-73) Lymphocytes (%) (Auto) 9 % (24-48) Monocytes (%) (Auto) 5 % (0-9) Eosinophils (%) (Auto) 0 % (0-3) Basophils (%) (Auto) 1 % (0-3) Neutrophils # (Auto) 6.2 x10^3/uL (1.8-7.7) Lymphocytes # (Auto) 0.7 x10^3/uL (1.0-4.8) Monocytes # (Auto) 0.3 x10^3/uL (0.0-1.1) Eosinophils # (Auto) 0.0 x10^3/uL (0.0-0.7) Basophils # (Auto) 0.0 x10^3/uL (0.0-0.2) Sodium Level 138 mmol/L (136-145) Potassium Level 4.6 mmol/L (3.5-5.1) Chloride Level 105 mmol/L (98-107) Carbon Dioxide Level 25 mmol/L (21-32) Anion Gap 8 (6-14) Blood Urea Nitrogen 12 mg/dL (7-20) Creatinine 0.6 mg/dL (0.6-1.0) Estimated GFR (Cockcroft-Gault) 104.6 Glucose Level 150 mg/dL (70-99) Calcium Level 7.9 mg/dL (8.5-10.1) Phosphorus Level 3.1 mg/dL (2.6-4.7) Magnesium Level 2.0 mg/dL (1.8-2.4) Total Bilirubin 7.5 mg/dL (0.2-1.0) Direct Bilirubin 4.9 mg/dL (0.0-0.2) Aspartate Amino Transf (AST/SGOT) 321 U/L (15-37) Alanine Aminotransferase (ALT/SGPT) 154 U/L (14-59) Alkaline Phosphatase 406 U/L (46-116) Total Protein 5.4 g/dL (6.4-8.2) Albumin 2.2 g/dL (3.4-5.0) Test 02/24/21 05:35 Prothrombin Time 16.0 SEC (11.7-14.0) Prothromb Time International Ratio 1.3 (0.8-1.1) Assessment/Plan Assessment/Plan Assessment: Metastatic breast cancer, ER negative, HER-2 positive with bone, liver and lung metastasis Pleural effusion, likely malignant Pericardial effusion, likely malignant Acute hypoxic respiratory failure requiring supplemental oxygen Pulmonary hypertension of unclear etiology: Differential includes restrictive pericarditis versus pulmonary lymphangitic spread of disease Abnormal LFTs with hyperbilirubinemia likely secondary to liver metastasis Recommendations: -Patient was given trastuzumab and Pertuzumab on 02/23/2021. Treatment with docetaxel was initially planned but was not given due to abnormal LFTs. Alternatively, treatment with paclitaxel was planned but was not given due to tenuous respiratory status and concern for clinical decompensation and she was sent to the ER -HER-2 directed therapy typically results in prompt improvement in disease related symptoms. Given recent receipt of HER-2 directed therapy, anticipate stabilization or improvement in her cancer related symptoms over the next few days. A more vigorous response may be less likely since chemotherapy was not given in conjunction with HER-2 directed therapy -Given potential for improvement in clinical status, I recommend continuing with supportive care at this time. In the setting of an incurable malignancy, I recommend against resuscitation and would recommend discussion of changing CODE STATUS to DNR/DNI -If no improvement or further worsening in clinical status is noted in the next 24 to 48 hours, reasonable to transition to comfort measures -Continue management of dyspnea per cardiology and pulmonology service. -Other management per primary service. Discussed with Dr. Valencia on 02/24/2021 -We will follow Francisco Lyman MD Medical Oncology/Hematology Ph: [phone] LESA LYMAN MD Feb 24, 2021 08:23
[2021-02-24] MEDS: ANASTROZOLE 1 MG TABLET PO SCH (08:29)
--- NOTE | 2021-02-24 08:40 | PDOC ---
PROGRESS NOTES Date of Service: DATE: 02/24/21 TIME: 08:40 Chief Complaint Chief Complaint mpression: 1. Heterogeneous liver which is relatively hyperechoic in relation to adjacent renal cortex. No discrete mass is identified. The main portal vein is patent. As was noted on the same day CT, MRI is recommended to exclude an infiltrating process. 2. Thick-walled gallbladder. No stones or sludge visualized. The lumen is mostly collapsed. Wall thickening related to hepatic dysfunction or third spacing is favored more likely than cholecystitis. No sonographic Blanchard's sign was observed. 3. Mildly dilated common bile duct. No obstructing process is apparent. Attention on follow-up MRI if performed. 4. Poorly characterized pancreas on account of bowel gas. What is seen of the pancreas is within normal limits. 5. Right pleural effusion. CHEST CTA IMPRESSION: 1. There is no pulmonary embolus. 2. Mediastinal and bilateral hilar adenopathy is unchanged. 3. Unchanged moderate pericardial effusion. 4. Change moderate right pleural effusion. 5. There are a few groundglass nodules in the bilateral lower lobes and scattered tree-in-bud opacities in the right lower lobe, likely infectious/inflammatory. 6. The left hepatic lobe is heterogeneously mildly hypodense. No portal vein thrombosis is seen. Increased FDG uptake in the left hepatic lobe was noted on PET. Infiltrative process cannot be excluded. Recommend MR abdomen with and without contrast for further evaluation. 7. There is mild wall thickening of the ascending and proximal and mid transverse colon. Considerations include mild colitis versus pseudothickening due to lack of distention. 8. Moderate pelvic free fluid. impression Sepsis with multiple sources for etiology Acute hypoxic respiratory failure Acute metabolic encephalopathy Acute , Moderate right pleural effusion, increased from prior study. Mild pericardial effusion Cor pulmonale Hyperbilirubinemia Metastatic breast cancer with liver metastasis Elevated troponin suggestive of demand ischemia Transaminitis due to congestive liver versus infiltrative metastatic disease Severe protein malnutrition Thrombocytopenia Hyponatremia Lactic acidemia likely due to metastatic disease to the liver rather than tissue hypoperfusion Diffuse colitis History of metastatic breast cancer , tumor load may respond to aggressive chemotherapy plan Admit to ICU for further management Cardiology consult for pericardial effusion and cor pulmonale Pulmonology consult for pleural effusion and hypoxia GI consult for hyperbilirubinemia and obstructive jaundice Heme-onc consult Continue empiric IV antibiotics Continue IV fluids and maintain maps greater than 65 Vasopressor support as needed O2 supplementation as needed Lovenox for DVT prophylaxis Protonix GI prophylaxis ADA diet Full code PROCALCITONIN Possible sepsis Discussed with RN and SW Disposition ICU management as above Surrogate decision maker is the consider transfer to [facility] [place] WITH ONCOLOGY D/W BY PHONE, HE AGREES, desires higher level of care, may require a jamel-cardial window due to effusion will transfer jacki d/w patient in room, she understands the need and agrees, she is A RN, and has worked at [facility] in the past 33 minutes of critical care time was spent in reviewing chart, labs, and images. Discussed with RN and SW. and oncology // LYMAN SASHIDHAR MD History of Present Illness History of Present Illness Chief Complaint: Chief Complain: Hypoxia and jaundice History of Present Illness: HPI: Patient is a 55-year-old female who has a history of breast cancer status post mastectomy in 2018 and had breast reconstruction done at [facility]. She also had chemoradiation on February 05, 2019 and she is currently following with heme- onc who saw her today and gave the patient Benadryl and tamoxifen. While in the clinic patient became hypoxic and listless. also states that the jaylon ent had jaundice saying that started a couple days prior to her visit at the heme-onc clinic. Bilirubin was drawn to the clinic and they said that her bilirubin was around 6. She is transferred to the ED for further management. On arrival patient was hypoxic and she was placed on O2. She is currently speaking full sentences with me and does not appear to be dyspneic. She is al ert and awake and oriented x3 and only complains of some mild vague abdominal pain around her periumbilical area. Denies fevers, nausea vomiting, chest pain, diarrhea or floating stools or bloody stools. ED course: 55-year-old female presenting with jaundice, elevated bilirubin and acute hypoxic respiratory failure. Upon chart review, she had been admitted to the hospital previously and had a pleural effusion and a pericardial effusion with cor pulmonale. Patient is placed on a facemask on arrival. We will do blood work and CT chest abdomen pelvis. Patient oxygen levels came to the low 90s on 15 L nonrebreather. Past Medical/Surgical History: PMH/PSH: Past Medical History: BREAST CA, BILAT MASTECT, IMSOMNIA Past Surgical History: BILAT MASTECT. Allergies: Allergies: Coded Allergies: No Known Drug Allergies (Unverified , 01/28/21) Family History: Family History: Reviewed with no relevant history Social History: Social History: Smoking Status: Never Smoker Alcohol Use: None Current Medications: Current Medications Current Medications Piperacillin Sod/ Tazobactam Sod 3.375 gm/Sodium Chloride 50 ml @ 100 mls/hr 1X ONCE IV Last administered on 02/23/21at 14:56; Start 02/23/21 at 14:30; Stop 02/23/21 at 14:59; Status DC Iohexol (Omnipaque 350 Mg/ml) 100 ml 1X ONCE IV Last administered on 02/23/21at 15:12; Start 02/23/21 at 14:45; Stop 02/23/21 at 14:46; Status DC Info (CONTRAST GIVEN -- Rx MONITORING) 1 each PRN DAILY PRN MC SEE COMMENTS; Start 02/23/21 at 14:45; Stop 02/25/21 at 14:44 Aspirin (Aspirin Chewable) 324 mg 1X ONCE PO ; Start 02/23/21 at 15:15; Stop 02/23/21 at 15:16; Status DC Active Scripts Active Ondansetron Odt (Ondansetron) 4 Mg Tab.rapdis 4 Mg PO TIDAC PRN Tramadol Hcl 50 Mg Tablet 50 Mg PO PRN Q6HRS PRN Reported Zolpidem Tartrate 5 Mg Tablet 5 Mg PO PRN QHS PRN Nexium Capsule (Esomeprazole Magnesium) 40 Mg Capsule. 1 Cap PO DAILY Arimidex (Anastrozole) 1 Mg Tablet 1 Tab PO DAILY 30 Days ROS: Review of Systems Review of System REVIEW OF SYSTEMS: GENERAL: Denies weakness SKIN: No bruising, hair changes or rashes. EYES: No blurred, double or loss of vision. NOSE AND THROAT: No history of nosebleeds, hoarseness or sore throat. HEART: No history of palpitations, chest pain or shortness of breath on exertion. LUNGS: Denies cough, hemoptysis, wheezing or shortness of breath. GASTROINTESTINAL: Denies changes in appetite, nausea, vomiting, diarrhea or constipation. GENITOURINARY: No history of frequency, urgency, hesitancy or nocturia. NEUROLOGIC: Denies history of numbness, tingling, or tremor. PSYCHIATRIC: No history of panic, anxiety or depression. ENDOCRINE: No history of heat or cold intolerance, polyuria or polydipsia. EXTREMITIES: Denies joint pain, pain on walking or stiffness. Vitals Vitals Vital Signs Date Time Temp Pulse Resp B/P (MAP) Pulse Ox O2 Delivery O2 Flow Rate FiO2 02/24/21 08:00 Non-Rebreather 15.0 02/24/21 07:00 105 22 91/66 (74) 92 02/24/21 05:00 97.5 97.5 Physical Exam General: Alert, Oriented X3, Cooperative, mild distress Heart: Regular rate, Normal S1, Normal S2 Lungs: Clear Abdomen: Normal bowel sounds, Soft, No tenderness Extremities: No clubbing, No cyanosis Skin: No breakdown Labs LABS XR CHEST 1V Clinical Indication: Reason: HYPOXIA / Spl. Instructions: / History: Comparison: AP chest February 14, 2021. Findings: There is new right chest Port-A-Cath, tip at superior atrial caval junction. The cardiomediastinal silhouette is stable. The left lung is clear. There is moderate right pleural effusion. There is right basilar airspace disease. No pneumothorax is identified. No acute bone abnormality is seen. IMPRESSION: 1. Moderate right pleural effusion, increased from prior study. 2. Right basilar airspace disease, compressive atelectasis or pneumonia. Electronically signed by: Pelon Courtney MD (02/23/2021 3:22 PM) [id number] DICTATED and SIGNED BY: PELON COURTNEY MD DATE: 02/23/21 [id number] PATIENT: ZACK MOYA ACCOUNT: [id number] : 1965 LOCATION: ER AGE: 55 SEX: F EXAM STATUS: REG ER ORD. PHYSICIAN: DEE DEE NARAYANAN MD REASON: Jaundice PROCEDURE: ABDOMEN COMPLETE STUDY: US Abdomen Complete INDICATION: Jaundice. COMPARISON: Limited abdominal ultrasound 01/27/2020; same day CT TECHNIQUE: Real-time grayscale and color Doppler sonographic evaluation of the abdomen. Findings: Pancreas: Limited visualization on account of bowel gas. The visualized portion is without a discrete mass or ductal dilatation. Liver: Measures within normal limits for size at 15.5 cm longitudinal. Heterogeneous parenchymal echogenicity which is in general hyperechoic when correlating with adjacent renal cortex. No discrete mass by ultrasound. Aorta/IVC/Main Portal Vein: Unremarkable IVC at the liver. The visualized aorta is nonaneurysmal. The main portal vein is patent. Gall Bladder: The gallbladder wall is thickened. The lumen is partially collapsed. No stones or sludge visualized but assessment is limited. Common Bile Duct: Measures prominent in transverse dimension at just under 0.7 cm. Right Kidney: Measures 10.8 cm in length. Normal cortical thickness and echogenicity. No hydronephrosis. Left Kidney: Measures 9.3 cm in length. Assessment is limited by bowel gas. Cortical thickness and echogenicity appears to be within normal limits. No hydronephrosis. Spleen: Within normal limits for size. Miscellaneous: Right-sided pleural effusion. Impression: 1. Heterogeneous liver which is relatively hyperechoic in relation to adjacent renal cortex. No discrete mass is identified. The main portal vein is patent. As was noted on the same day CT, MRI is recommended to exclude an infiltrating process. 2. Thick-walled gallbladder. No stones or sludge visualized. The lumen is mostly collapsed. Wall thickening related to hepatic dysfunction or third spacing is favored more likely than cholecystitis. No sonographic Blanchard's sign was observed. 3. Mildly dilated common bile duct. No obstructing process is apparent. Attention on follow-up MRI if performed. 4. Poorly characterized pancreas on account of bowel gas. What is seen of the pancreas is within normal limits. 5. Right pleural effusion. Electronically signed by: GERALD HENNESSY MD (02/23/2021 5:19 PM) [facility] DICTATED and SIGNED BY: GERALD HENNESSY MD PATIENT: ZACK MOYA ACCOUNT: [id number] : 1965 LOCATION: ER AGE: 55 SEX: F EXAM STATUS: REG ER ORD. PHYSICIAN: DONTA MOSQUERA MD REASON: HYPOXIA, R/O PE, JAUNDICE PROCEDURE: CT ANGIO CHEST W ABD PEL W/ PQRS Compliance Statement: One or more of the following individualized dose reduction techniques were utilized for this examination: 1. Automated exposure control 2. Adjustment of the mA and/or kV according to patient size 3. Use of iterative reconstruction technique CTA CHEST_ABDOMEN_AND PELVIS Clinical Indication: Reason: HYPOXIA, , JAUNDICE history of breast cancer. Comparison: CT PE February 15, 2021. Technique: Helical CT of the chest was performed after the administration of 100 cc of Omnipaque 350 intravenous contrast according to PE protocol. Axial and coronal reconstructions were obtained. 3-D MIP images were constructed to better evaluate the pulmonary arteries. Helical CT imaging continued in the abdomen and pelvis. Findings: Pulmonary arteries are adequately opacified. There is no evidence of pulmonary embolism. Pulmonary trunk is dilated suggesting portal hypertension. Right chest Port-A-Cath. There is no thoracic aortic dissection. The thoracic aorta is normal caliber. Bilateral mastectomy is redemonstrated. There are right axillary surgical clips. Mediastinal and bilateral hilar adenopathy is stable. There is moderate pericardial effusion, unchanged. The cardiac size is normal. There is moderate right pleural effusion, unchanged. The central airways are patent. Radiation fibrosis anterior right lung is stable. Right apical nodule is unchanged, image 38. There is mild compressive atelectasis in the right lower lobe adjacent to the effusion. In the right lower lobe there are new subcentimeter groundglass nodules and scattered tree-in-bud opacities. Nodule in the left upper lobe is unchanged, ground glass halo has decreased. 2 nodular opacities in the left lower lobe are unchanged, image 142. There are a few new subcentimeter groundglass nodules in the left lower lobe that are probably infectious/inflammatory. The left hepatic lobe is heterogeneously mildly hypodense. Increased FDG uptake was seen in this distribution on PET. Infiltrative process cannot be excluded. The portal vein is without thrombus, there is admixing of contrast and unopacified blood. The gallbladder is contracted accentuating the wall thickness. There is trace pericholecystic fluid. Spleen size is normal. The pancreas and adrenal glands and abdominal aorta and kidneys are normal. No obvious abnormality the stomach. There is moderate induration of the upper central mesentery, nonspecific. There is no small bowel obstruction. The appendix is normal. There is mild wall thickening of the ascending and proximal and mid transverse colon. Atrophic uterus. There is moderate pelvic free fluid. Urinary bladder is normal. No osteolytic or blastic lesion is seen. IMPRESSION: 1. There is no pulmonary embolus. 2. Mediastinal and bilateral hilar adenopathy is unchanged. 3. Unchanged moderate pericardial effusion. 4. Change moderate right pleural effusion. 5. There are a few groundglass nodules in the bilateral lower lobes and scattered tree-in-bud opacities in the right lower lobe, likely infectious/inflammatory. 6. The left hepatic lobe is heterogeneously mildly hypodense. No portal vein thrombosis is seen. Increased FDG uptake in the left hepatic lobe was noted on PET. Infiltrative process cannot be excluded. Recommend MR abdomen with and without contrast for further evaluation. 7. There is mild wall thickening of the ascending and proximal and mid transverse colon. Considerations include mild colitis versus pseudothickening due to lack of distention. 8. Moderate pelvic free fluid. Electronically signed by: Pelon Courtney MD (02/23/2021 3:40 PM) [id number] DICTATED and SIGNED BY: PELON COURTNEY MD DATE: 02/23/21 [id number] Laboratory Tests Test 02/23/21 14:31 02/23/21 15:20 02/23/21 17:05 02/23/21 17:20 White Blood Count 10.5 x10^3/uL (4.0-11.0) Red Blood Count 4.67 x10^6/uL (3.50-5.40) Hemoglobin 14.6 g/dL (12.0-15.5) Hematocrit 43.1 % (36.0-47.0) Mean Corpuscular Volume 92 fL (79-100) Mean Corpuscular Hemoglobin 31 pg (25-35) Mean Corpuscular Hemoglobin Concent 34 g/dL (31-37) Red Cell Distribution Width 16.4 % (11.5-14.5) Platelet Count 53 x10^3/uL (140-400) Neutrophils (%) (Auto) 93 % (31-73) Lymphocytes (%) (Auto) 3 % (24-48) Monocytes (%) (Auto) 4 % (0-9) Eosinophils (%) (Auto) 0 % (0-3) Basophils (%) (Auto) 0 % (0-3) Neutrophils # (Auto) 9.8 x10^3/uL (1.8-7.7) Lymphocytes # (Auto) 0.3 x10^3/uL (1.0-4.8) Monocytes # (Auto) 0.4 x10^3/uL (0.0-1.1) Eosinophils # (Auto) 0.0 x10^3/uL (0.0-0.7) Basophils # (Auto) 0.0 x10^3/uL (0.0-0.2) Segmented Neutrophils % 89 % (35-66) Band Neutrophils % 7 % (0-9) Lymphocytes % 1 % (24-48) Monocytes % 3 % (0-10) Toxic Granulation Slight Platelet Estimate Decreased (ADEQUATE) Schistocytes Occ Sodium Level 130 mmol/L (136-145) Potassium Level 4.7 mmol/L (3.5-5.1) Chloride Level 99 mmol/L (98-107) Carbon Dioxide Level 22 mmol/L (21-32) Anion Gap 9 (6-14) Blood Urea Nitrogen 11 mg/dL (7-20) Creatinine 0.7 mg/dL (0.6-1.0) Estimated GFR (Cockcroft-Gault) 87.5 Glucose Level 236 mg/dL (70-99) Lactic Acid Level 3.6 mmol/L (0.4-2.0) Calcium Level 8.7 mg/dL (8.5-10.1) Total Bilirubin 7.7 mg/dL (0.2-1.0) Direct Bilirubin 5.3 mg/dL (0.0-0.2) Aspartate Amino Transf (AST/SGOT) 387 U/L (15-37) Alanine Aminotransferase (ALT/SGPT) 180 U/L (14-59) Alkaline Phosphatase 516 U/L (46-116) Troponin I Quantitative 0.148 ng/mL (0.000-0.055) UW-Bbs-C-Type Natriuretic Peptide 4304 pg/mL (0-124) Total Protein 6.5 g/dL (6.4-8.2) Albumin 2.7 g/dL (3.4-5.0) Lipase 106 U/L (73-393) Ammonia 45 mcmol/L (11-34) SARS-CoV-2 RNA (SANTY) Negative (Negative) O2 Saturation 92 % (92-99) Arterial Blood pH 7.47 (7.35-7.45) Arterial Blood pCO2 at Patient Temp 29 mmHg (35-46) Arterial Blood pO2 at Patient Temp 64 mmHg (75-108) Arterial Blood HCO3 21 mmol/L (21-28) Arterial Blood Base Excess -2 mmol/L (-3-3) Oxyhemoglobin 91.0 % Methemoglobin 0.5 % (0.0-1.9) Carbon Monoxide, Quantitative 0.5 % (0.0-1.9) FiO2 100 nrm Test 02/23/21 18:10 02/23/21 18:35 02/23/21 22:32 02/24/21 03:15 SARS-CoV-2 Antigen (Rapid) Negative (NEGATIVE) Lactic Acid Level 4.5 mmol/L (0.4-2.0) 3.5 mmol/L (0.4-2.0) 2.2 mmol/L (0.4-2.0) White Blood Count 7.3 x10^3/uL (4.0-11.0) Red Blood Count 4.04 x10^6/uL (3.50-5.40) Hemoglobin 12.5 g/dL (12.0-15.5) Hematocrit 37.7 % (36.0-47.0) Mean Corpuscular Volume 93 fL (79-100) Mean Corpuscular Hemoglobin 31 pg (25-35) Mean Corpuscular Hemoglobin Concent 33 g/dL (31-37) Red Cell Distribution Width 18.3 % (11.5-14.5) Platelet Count 20 x10^3/uL (140-400) Neutrophils (%) (Auto) 86 % (31-73) Lymphocytes (%) (Auto) 9 % (24-48) Monocytes (%) (Auto) 5 % (0-9) Eosinophils (%) (Auto) 0 % (0-3) Basophils (%) (Auto) 1 % (0-3) Neutrophils # (Auto) 6.2 x10^3/uL (1.8-7.7) Lymphocytes # (Auto) 0.7 x10^3/uL (1.0-4.8) Monocytes # (Auto) 0.3 x10^3/uL (0.0-1.1) Eosinophils # (Auto) 0.0 x10^3/uL (0.0-0.7) Basophils # (Auto) 0.0 x10^3/uL (0.0-0.2) Sodium Level 138 mmol/L (136-145) Potassium Level 4.6 mmol/L (3.5-5.1) Chloride Level 105 mmol/L (98-107) Carbon Dioxide Level 25 mmol/L (21-32) Anion Gap 8 (6-14) Blood Urea Nitrogen 12 mg/dL (7-20) Creatinine 0.6 mg/dL (0.6-1.0) Estimated GFR (Cockcroft-Gault) 104.6 Glucose Level 150 mg/dL (70-99) Calcium Level 7.9 mg/dL (8.5-10.1) Phosphorus Level 3.1 mg/dL (2.6-4.7) Magnesium Level 2.0 mg/dL (1.8-2.4) Total Bilirubin 7.5 mg/dL (0.2-1.0) Direct Bilirubin 4.9 mg/dL (0.0-0.2) Aspartate Amino Transf (AST/SGOT) 321 U/L (15-37) Alanine Aminotransferase (ALT/SGPT) 154 U/L (14-59) Alkaline Phosphatase 406 U/L (46-116) Total Protein 5.4 g/dL (6.4-8.2) Albumin 2.2 g/dL (3.4-5.0) Test 02/24/21 05:35 Prothrombin Time 16.0 SEC (11.7-14.0) Prothromb Time International Ratio 1.3 (0.8-1.1) Assessment and Plan Assessmemt and Plan Problems Medical Problems: (1) Hyperbilirubinemia Status: Acute (2) Lactic acidosis Status: Acute (3) Metastatic breast cancer Status: Acute (4) Pleural effusion Status: Acute (5) Respiratory failure with hypoxia Status: Acute (6) Tachycardia Status: Acute Comment Review of Relevant I have reviewed the following items ash (where applicable) has been applied. Labs Laboratory Tests Test 02/23/21 14:31 02/23/21 15:20 02/23/21 17:05 02/23/21 17:20 White Blood Count 10.5 x10^3/uL (4.0-11.0) Red Blood Count 4.67 x10^6/uL (3.50-5.40) Hemoglobin 14.6 g/dL (12.0-15.5) Hematocrit 43.1 % (36.0-47.0) Mean Corpuscular Volume 92 fL (79-100) Mean Corpuscular Hemoglobin 31 pg (25-35) Mean Corpuscular Hemoglobin Concent 34 g/dL (31-37) Red Cell Distribution Width 16.4 % (11.5-14.5) Platelet Count 53 x10^3/uL (140-400) Neutrophils (%) (Auto) 93 % (31-73) Lymphocytes (%) (Auto) 3 % (24-48) Monocytes (%) (Auto) 4 % (0-9) Eosinophils (%) (Auto) 0 % (0-3) Basophils (%) (Auto) 0 % (0-3) Neutrophils # (Auto) 9.8 x10^3/uL (1.8-7.7) Lymphocytes # (Auto) 0.3 x10^3/uL (1.0-4.8) Monocytes # (Auto) 0.4 x10^3/uL (0.0-1.1) Eosinophils # (Auto) 0.0 x10^3/uL (0.0-0.7) Basophils # (Auto) 0.0 x10^3/uL (0.0-0.2) Segmented Neutrophils % 89 % (35-66) Band Neutrophils % 7 % (0-9) Lymphocytes % 1 % (24-48) Monocytes % 3 % (0-10) Toxic Granulation Slight Platelet Estimate Decreased (ADEQUATE) Schistocytes Occ Sodium Level 130 mmol/L (136-145) Potassium Level 4.7 mmol/L (3.5-5.1) Chloride Level 99 mmol/L (98-107) Carbon Dioxide Level 22 mmol/L (21-32) Anion Gap 9 (6-14) Blood Urea Nitrogen 11 mg/dL (7-20) Creatinine 0.7 mg/dL (0.6-1.0) Estimated GFR (Cockcroft-Gault) 87.5 Glucose Level 236 mg/dL (70-99) Lactic Acid Level 3.6 mmol/L (0.4-2.0) Calcium Level 8.7 mg/dL (8.5-10.1) Total Bilirubin 7.7 mg/dL (0.2-1.0) Direct Bilirubin 5.3 mg/dL (0.0-0.2) Aspartate Amino Transf (AST/SGOT) 387 U/L (15-37) Alanine Aminotransferase (ALT/SGPT) 180 U/L (14-59) Alkaline Phosphatase 516 U/L (46-116) Troponin I Quantitative 0.148 ng/mL (0.000-0.055) QY-Wdd-E-Type Natriuretic Peptide 4304 pg/mL (0-124) Total Protein 6.5 g/dL (6.4-8.2) Albumin 2.7 g/dL (3.4-5.0) Lipase 106 U/L (73-393) Ammonia 45 mcmol/L (11-34) SARS-CoV-2 RNA (SANTY) Negative (Negative) O2 Saturation 92 % (92-99) Arterial Blood pH 7.47 (7.35-7.45) Arterial Blood pCO2 at Patient Temp 29 mmHg (35-46) Arterial Blood pO2 at Patient Temp 64 mmHg (75-108) Arterial Blood HCO3 21 mmol/L (21-28) Arterial Blood Base Excess -2 mmol/L (-3-3) Oxyhemoglobin 91.0 % Methemoglobin 0.5 % (0.0-1.9) Carbon Monoxide, Quantitative 0.5 % (0.0-1.9) FiO2 100 nrm Test 02/23/21 18:10 02/23/21 18:35 02/23/21 22:32 02/24/21 03:15 SARS-CoV-2 Antigen (Rapid) Negative (NEGATIVE) Lactic Acid Level 4.5 mmol/L (0.4-2.0) 3.5 mmol/L (0.4-2.0) 2.2 mmol/L (0.4-2.0) White Blood Count 7.3 x10^3/uL (4.0-11.0) Red Blood Count 4.04 x10^6/uL (3.50-5.40) Hemoglobin 12.5 g/dL (12.0-15.5) Hematocrit 37.7 % (36.0-47.0) Mean Corpuscular Volume 93 fL (79-100) Mean Corpuscular Hemoglobin 31 pg (25-35) Mean Corpuscular Hemoglobin Concent 33 g/dL (31-37) Red Cell Distribution Width 18.3 % (11.5-14.5) Platelet Count 20 x10^3/uL (140-400) Neutrophils (%) (Auto) 86 % (31-73) Lymphocytes (%) (Auto) 9 % (24-48) Monocytes (%) (Auto) 5 % (0-9) Eosinophils (%) (Auto) 0 % (0-3) Basophils (%) (Auto) 1 % (0-3) Neutrophils # (Auto) 6.2 x10^3/uL (1.8-7.7) Lymphocytes # (Auto) 0.7 x10^3/uL (1.0-4.8) Monocytes # (Auto) 0.3 x10^3/uL (0.0-1.1) Eosinophils # (Auto) 0.0 x10^3/uL (0.0-0.7) Basophils # (Auto) 0.0 x10^3/uL (0.0-0.2) Sodium Level 138 mmol/L (136-145) Potassium Level 4.6 mmol/L (3.5-5.1) Chloride Level 105 mmol/L (98-107) Carbon Dioxide Level 25 mmol/L (21-32) Anion Gap 8 (6-14) Blood Urea Nitrogen 12 mg/dL (7-20) Creatinine 0.6 mg/dL (0.6-1.0) Estimated GFR (Cockcroft-Gault) 104.6 Glucose Level 150 mg/dL (70-99) Calcium Level 7.9 mg/dL (8.5-10.1) Phosphorus Level 3.1 mg/dL (2.6-4.7) Magnesium Level 2.0 mg/dL (1.8-2.4) Total Bilirubin 7.5 mg/dL (0.2-1.0) Direct Bilirubin 4.9 mg/dL (0.0-0.2) Aspartate Amino Transf (AST/SGOT) 321 U/L (15-37) Alanine Aminotransferase (ALT/SGPT) 154 U/L (14-59) Alkaline Phosphatase 406 U/L (46-116) Total Protein 5.4 g/dL (6.4-8.2) Albumin 2.2 g/dL (3.4-5.0) Test 02/24/21 05:35 Prothrombin Time 16.0 SEC (11.7-14.0) Prothromb Time International Ratio 1.3 (0.8-1.1) Laboratory Tests Test 02/23/21 14:31 02/23/21 15:20 02/23/21 17:05 02/23/21 17:20 White Blood Count 10.5 x10^3/uL (4.0-11.0) Red Blood Count 4.67 x10^6/uL (3.50-5.40) Hemoglobin 14.6 g/dL (12.0-15.5) Hematocrit 43.1 % (36.0-47.0) Mean Corpuscular Volume 92 fL (79-100) Mean Corpuscular Hemoglobin 31 pg (25-35) Mean Corpuscular Hemoglobin Concent 34 g/dL (31-37) Red Cell Distribution Width 16.4 % (11.5-14.5) Platelet Count 53 x10^3/uL (140-400) Neutrophils (%) (Auto) 93 % (31-73) Lymphocytes (%) (Auto) 3 % (24-48) Monocytes (%) (Auto) 4 % (0-9) Eosinophils (%) (Auto) 0 % (0-3) Basophils (%) (Auto) 0 % (0-3) Neutrophils # (Auto) 9.8 x10^3/uL (1.8-7.7) Lymphocytes # (Auto) 0.3 x10^3/uL (1.0-4.8) Monocytes # (Auto) 0.4 x10^3/uL (0.0-1.1) Eosinophils # (Auto) 0.0 x10^3/uL (0.0-0.7) Basophils # (Auto) 0.0 x10^3/uL (0.0-0.2) Segmented Neutrophils % 89 % (35-66) Band Neutrophils % 7 % (0-9) Lymphocytes % 1 % (24-48) Monocytes % 3 % (0-10) Toxic Granulation Slight Platelet Estimate Decreased (ADEQUATE) Schistocytes Occ Sodium Level 130 mmol/L (136-145) Potassium Level 4.7 mmol/L (3.5-5.1) Chloride Level 99 mmol/L (98-107) Carbon Dioxide Level 22 mmol/L (21-32) Anion Gap 9 (6-14) Blood Urea Nitrogen 11 mg/dL (7-20) Creatinine 0.7 mg/dL (0.6-1.0) Estimated GFR (Cockcroft-Gault) 87.5 Glucose Level 236 mg/dL (70-99) Lactic Acid Level 3.6 mmol/L (0.4-2.0) Calcium Level 8.7 mg/dL (8.5-10.1) Total Bilirubin 7.7 mg/dL (0.2-1.0) Direct Bilirubin 5.3 mg/dL (0.0-0.2) Aspartate Amino Transf (AST/SGOT) 387 U/L (15-37) Alanine Aminotransferase (ALT/SGPT) 180 U/L (14-59) Alkaline Phosphatase 516 U/L (46-116) Troponin I Quantitative 0.148 ng/mL (0.000-0.055) CB-Xsl-A-Type Natriuretic Peptide 4304 pg/mL (0-124) Total Protein 6.5 g/dL (6.4-8.2) Albumin 2.7 g/dL (3.4-5.0) Lipase 106 U/L (73-393) Ammonia 45 mcmol/L (11-34) SARS-CoV-2 RNA (SANTY) Negative (Negative) O2 Saturation 92 % (92-99) Arterial Blood pH 7.47 (7.35-7.45) Arterial Blood pCO2 at Patient Temp 29 mmHg (35-46) Arterial Blood pO2 at Patient Temp 64 mmHg (75-108) Arterial Blood HCO3 21 mmol/L (21-28) Arterial Blood Base Excess -2 mmol/L (-3-3) Oxyhemoglobin 91.0 % Methemoglobin 0.5 % (0.0-1.9) Carbon Monoxide, Quantitative 0.5 % (0.0-1.9) FiO2 100 nrm Test 02/23/21 18:10 02/23/21 18:35 02/23/21 22:32 02/24/21 03:15 SARS-CoV-2 Antigen (Rapid) Negative (NEGATIVE) Lactic Acid Level 4.5 mmol/L (0.4-2.0) 3.5 mmol/L (0.4-2.0) 2.2 mmol/L (0.4-2.0) White Blood Count 7.3 x10^3/uL (4.0-11.0) Red Blood Count 4.04 x10^6/uL (3.50-5.40) Hemoglobin 12.5 g/dL (12.0-15.5) Hematocrit 37.7 % (36.0-47.0) Mean Corpuscular Volume 93 fL (79-100) Mean Corpuscular Hemoglobin 31 pg (25-35) Mean Corpuscular Hemoglobin Concent 33 g/dL (31-37) Red Cell Distribution Width 18.3 % (11.5-14.5) Platelet Count 20 x10^3/uL (140-400) Neutrophils (%) (Auto) 86 % (31-73) Lymphocytes (%) (Auto) 9 % (24-48) Monocytes (%) (Auto) 5 % (0-9) Eosinophils (%) (Auto) 0 % (0-3) Basophils (%) (Auto) 1 % (0-3) Neutrophils # (Auto) 6.2 x10^3/uL (1.8-7.7) Lymphocytes # (Auto) 0.7 x10^3/uL (1.0-4.8) Monocytes # (Auto) 0.3 x10^3/uL (0.0-1.1) Eosinophils # (Auto) 0.0 x10^3/uL (0.0-0.7) Basophils # (Auto) 0.0 x10^3/uL (0.0-0.2) Sodium Level 138 mmol/L (136-145) Potassium Level 4.6 mmol/L (3.5-5.1) Chloride Level 105 mmol/L (98-107) Carbon Dioxide Level 25 mmol/L (21-32) Anion Gap 8 (6-14) Blood Urea Nitrogen 12 mg/dL (7-20) Creatinine 0.6 mg/dL (0.6-1.0) Estimated GFR (Cockcroft-Gault) 104.6 Glucose Level 150 mg/dL (70-99) Calcium Level 7.9 mg/dL (8.5-10.1) Phosphorus Level 3.1 mg/dL (2.6-4.7) Magnesium Level 2.0 mg/dL (1.8-2.4) Total Bilirubin 7.5 mg/dL (0.2-1.0) Direct Bilirubin 4.9 mg/dL (0.0-0.2) Aspartate Amino Transf (AST/SGOT) 321 U/L (15-37) Alanine Aminotransferase (ALT/SGPT) 154 U/L (14-59) Alkaline Phosphatase 406 U/L (46-116) Total Protein 5.4 g/dL (6.4-8.2) Albumin 2.2 g/dL (3.4-5.0) Test 02/24/21 05:35 Prothrombin Time 16.0 SEC (11.7-14.0) Prothromb Time International Ratio 1.3 (0.8-1.1) Medications Current Medications Piperacillin Sod/ Tazobactam Sod 3.375 gm/Sodium Chloride 50 ml @ 100 mls/hr 1X ONCE IV Last administered on 02/23/21at 14:56; Start 02/23/21 at 14:30; Stop at 14:59; Status DC Iohexol (Omnipaque 350 Mg/ml) 100 ml 1X ONCE IV Last administered on 02/23/21at 15:12; Start 02/23/21 at 14:45; Stop 02/23/21 at 14:46; Status DC Info (CONTRAST GIVEN -- Rx MONITORING) 1 each PRN DAILY PRN MC SEE COMMENTS; Start 02/23/21 at 14:45; Stop 02/25/21 at 14:44 Aspirin (Aspirin Chewable) 324 mg 1X ONCE PO Last administered on 02/23/21at 15:43; Start 02/23/21 at 15:15; Stop 02/23/21 at 15:16; Status DC Sennosides (Senna) 17.2 mg PRN BID PRN PO CONSTIPATION; Start 02/23/21 at 16:00 Docusate Sodium (Colace) 100 mg PRN DAILY PRN PO HARD STOOLS; Start 02/23/21 at 16:00 Ondansetron HCl (Zofran) 4 mg PRN Q6HRS PRN IVP NAUSEA/VOMITING; Start 02/23/21 at 16:00 Dextrose (Dextrose 50%-Water Syringe) 12.5 gm PRN Q15MIN PRN IV SEE COMMENTS; Start 02/23/21 at 16:00 Acetaminophen (Tylenol) 650 mg PRN Q4HRS PRN PO TEMP OVER 100.4F OR MILD PAIN Last administered on 02/23/21at 20:43; Start 02/23/21 at 16:00 Enoxaparin Sodium (Lovenox 40mg Syringe) 40 mg Q24H SQ Last administered on 02/23/21at 20:44; Start 02/23/21 at 21:00 Piperacillin Sod/ Tazobactam Sod (Zosyn Per Pharmacy) 1 each PRN DAILY PRN MC SEE COMMENTS; Start 02/23/21 at 16:00 Pantoprazole Sodium (PROTONIX VIAL for IV PUSH) 40 mg DAILY IVP Last administered on 02/24/21at 08:28; Start 02/24/21 at 09:00 Sodium Chloride 500 ml @ 500 mls/hr 1X ONCE IV Last administered on 02/23/21at 16:42; Start 02/23/21 at 16:15; Stop 02/23/21 at 17:14; Status DC Piperacillin Sod/ Tazobactam Sod 3.375 gm/Sodium Chloride 50 ml @ 100 mls/hr Q6HRS IV Last administered on 02/24/21at 06:04; Start 02/23/21 at 18:00 Sodium Chloride 500 ml @ 500 mls/hr 1X ONCE IV Last administered on 02/23/21at 19:48; Start 02/23/21 at 19:45; Stop 02/23/21 at 20:44; Status DC Anastrozole (Arimidex) 1 mg DAILY PO Last administered on 02/24/21at 08:29; Start 02/23/21 at 22:00 Active Scripts Active Ondansetron Odt (Ondansetron) 4 Mg Tab.rapdis 4 Mg PO TIDAC PRN Tramadol Hcl 50 Mg Tablet 50 Mg PO PRN Q6HRS PRN Reported Zolpidem Tartrate 5 Mg Tablet 5 Mg PO PRN QHS PRN Nexium Capsule (Esomeprazole Magnesium) 40 Mg Capsule. 1 Cap PO DAILY Arimidex (Anastrozole) 1 Mg Tablet 1 Tab PO DAILY 30 Days Vitals/I & O Vital Sign - Last 24 Hours 02/23/21 02/23/21 02/23/2121 14:29 14:36 15:06 15:36 Temp 97.7 97.7 Pulse 120 122 124 122 Resp 24 36 32 32 B/P (MAP) 116/77 (90) 123/78 (93) 123/84 (97) 106/78 (87) Pulse Ox 87 95 95 92 O2 Delivery Room Air NonRebreather Mask O2 Flow Rate 6.0 15.0 02/23/21 02/23/21 02/23/21 02/23/21 16:06 16:21 16:56 17:36 Pulse 118 118 114 122 Resp 32 36 36 36 B/P (MAP) 95/66 (76) 111/66 (81) 103/75 (84) 113/74 (87) Pulse Ox 93 92 94 94 O2 Delivery NonRebreather Mask O2 Flow Rate 15.0 02/23/21 02/23/21 02/23/21 02/23/21 18:26 18:36 20:00 20:00 Temp 97.6 97.5 97.6 97.5 Pulse 118 114 113 Resp 36 18 22 B/P (MAP) 103/65 (78) 88/59 (69) 87/67 (74) Pulse Ox 91 95 93 O2 Delivery NonRebreather Mask NonRebreather Mask Non-Rebreather Venturi Mask O2 Flow Rate 15.0 15.0 15.0 15.0 02/23/21 02/23/21 02/23/21 02/24/21 21:00 22:00 23:00 00:01 Pulse 108 11 112 Resp B/P (MAP) 90/55 (67) 85/59 (68) 79/54 (62) Pulse Ox 92 93 93 O2 Delivery NonRebreather Mask NonRebreather Mask BiPAP/CPAP Non-Rebreather O2 Flow Rate 15.0 15.0 15.0 02/24/21 02/24/21 02/24/21 02/24/21 00:01 01:00 02:00 03:00 Temp 97.6 97.6 Pulse 106 102 104 115 Resp B/P (MAP) 91/67 (75) 81/64 (70) 89/69 (76) 83/62 (69) Pulse Ox 91 93 95 91 O2 Delivery NonRebreather Mask NonRebreather Mask NonRebreather Mask NonRebreather Mask O2 Flow Rate 15.0 15.0 15.0 15.0 02/24/21 02/24/21 02/24/21 02/24/21 04:00 04:00 05:00 06:00 Temp 97.5 97.5 Pulse 112 111 105 Resp 22 22 22 B/P (MAP) 84/70 (75) 88/51 (63) 91/76 (81) Pulse Ox 92 90 95 O2 Delivery Non-Rebreather NonRebreather Mask NonRebreather Mask NonRebreather Mask O2 Flow Rate 15.0 15.0 15.0 15.0 02/24/21 02/24/21 07:00 08:00 Pulse 105 Resp 22 B/P (MAP) 91/66 (74) Pulse Ox 92 O2 Delivery NonRebreather Mask Non-Rebreather O2 Flow Rate 15.0 15.0 Intake and Output 02/23/21 02/23/21 02/24/21 15:00 23:00 07:00 Intake Total 950 ml 100 ml Output Total 350 ml Balance 950 ml -250 ml Justicifation of Admission Dx: Justifications for Admission: Justification of Admission Dx: Yes GUSTAVO DOMINGUEZ MD Feb 24, 2021 08:40
[2021-02-24] MEDS ORDERED: PANTOPRAZOLE IV PUSH 40 MG VIAL. IVP SCH (09:00)
--- NOTE | 2021-02-24 09:23 | PDOC ---
PULMONARY PROGRESS NOTES DATE: 02/24/21 TIME: 09:23 Vitals Vital Signs Date Time Temp Pulse Resp B/P (MAP) Pulse Ox O2 Delivery O2 Flow Rate FiO2 02/24/21 09:00 105 21 77/64 (68) 92 NonRebreather Mask 15.0 02/24/21 05:00 97.5 97.5 General: Alert, Oriented X4, No acute distress Lungs: Clear Cardiovascular: S1 Abdomen: Soft Extremities: No Edema Labs Laboratory Tests Test 02/23/21 14:31 02/23/21 15:20 02/23/21 17:05 02/23/21 17:20 White Blood Count 10.5 x10^3/uL (4.0-11.0) Red Blood Count 4.67 x10^6/uL (3.50-5.40) Hemoglobin 14.6 g/dL (12.0-15.5) Hematocrit 43.1 % (36.0-47.0) Mean Corpuscular Volume 92 fL (79-100) Mean Corpuscular Hemoglobin 31 pg (25-35) Mean Corpuscular Hemoglobin Concent 34 g/dL (31-37) Red Cell Distribution Width 16.4 % (11.5-14.5) Platelet Count 53 x10^3/uL (140-400) Neutrophils (%) (Auto) 93 % (31-73) Lymphocytes (%) (Auto) 3 % (24-48) Monocytes (%) (Auto) 4 % (0-9) Eosinophils (%) (Auto) 0 % (0-3) Basophils (%) (Auto) 0 % (0-3) Neutrophils # (Auto) 9.8 x10^3/uL (1.8-7.7) Lymphocytes # (Auto) 0.3 x10^3/uL (1.0-4.8) Monocytes # (Auto) 0.4 x10^3/uL (0.0-1.1) Eosinophils # (Auto) 0.0 x10^3/uL (0.0-0.7) Basophils # (Auto) 0.0 x10^3/uL (0.0-0.2) Segmented Neutrophils % 89 % (35-66) Band Neutrophils % 7 % (0-9) Lymphocytes % 1 % (24-48) Monocytes % 3 % (0-10) Toxic Granulation Slight Platelet Estimate Decreased (ADEQUATE) Schistocytes Occ Sodium Level 130 mmol/L (136-145) Potassium Level 4.7 mmol/L (3.5-5.1) Chloride Level 99 mmol/L (98-107) Carbon Dioxide Level 22 mmol/L (21-32) Anion Gap 9 (6-14) Blood Urea Nitrogen 11 mg/dL (7-20) Creatinine 0.7 mg/dL (0.6-1.0) Estimated GFR (Cockcroft-Gault) 87.5 Glucose Level 236 mg/dL (70-99) Lactic Acid Level 3.6 mmol/L (0.4-2.0) Calcium Level 8.7 mg/dL (8.5-10.1) Total Bilirubin 7.7 mg/dL (0.2-1.0) Direct Bilirubin 5.3 mg/dL (0.0-0.2) Aspartate Amino Transf (AST/SGOT) 387 U/L (15-37) Alanine Aminotransferase (ALT/SGPT) 180 U/L (14-59) Alkaline Phosphatase 516 U/L (46-116) Troponin I Quantitative 0.148 ng/mL (0.000-0.055) RV-Lpp-W-Type Natriuretic Peptide 4304 pg/mL (0-124) Total Protein 6.5 g/dL (6.4-8.2) Albumin 2.7 g/dL (3.4-5.0) Lipase 106 U/L (73-393) Ammonia 45 mcmol/L (11-34) SARS-CoV-2 RNA (SANTY) Negative (Negative) O2 Saturation 92 % (92-99) Arterial Blood pH 7.47 (7.35-7.45) Arterial Blood pCO2 at Patient Temp 29 mmHg (35-46) Arterial Blood pO2 at Patient Temp 64 mmHg (75-108) Arterial Blood HCO3 21 mmol/L (21-28) Arterial Blood Base Excess -2 mmol/L (-3-3) Oxyhemoglobin 91.0 % Methemoglobin 0.5 % (0.0-1.9) Carbon Monoxide, Quantitative 0.5 % (0.0-1.9) FiO2 100 nrm Test 02/23/21 18:10 02/23/21 18:35 02/23/21 22:32 02/24/21 03:15 SARS-CoV-2 Antigen (Rapid) Negative (NEGATIVE) Lactic Acid Level 4.5 mmol/L (0.4-2.0) 3.5 mmol/L (0.4-2.0) 2.2 mmol/L (0.4-2.0) White Blood Count 7.3 x10^3/uL (4.0-11.0) Red Blood Count 4.04 x10^6/uL (3.50-5.40) Hemoglobin 12.5 g/dL (12.0-15.5) Hematocrit 37.7 % (36.0-47.0) Mean Corpuscular Volume 93 fL (79-100) Mean Corpuscular Hemoglobin 31 pg (25-35) Mean Corpuscular Hemoglobin Concent 33 g/dL (31-37) Red Cell Distribution Width 18.3 % (11.5-14.5) Platelet Count 20 x10^3/uL (140-400) Neutrophils (%) (Auto) 86 % (31-73) Lymphocytes (%) (Auto) 9 % (24-48) Monocytes (%) (Auto) 5 % (0-9) Eosinophils (%) (Auto) 0 % (0-3) Basophils (%) (Auto) 1 % (0-3) Neutrophils # (Auto) 6.2 x10^3/uL (1.8-7.7) Lymphocytes # (Auto) 0.7 x10^3/uL (1.0-4.8) Monocytes # (Auto) 0.3 x10^3/uL (0.0-1.1) Eosinophils # (Auto) 0.0 x10^3/uL (0.0-0.7) Basophils # (Auto) 0.0 x10^3/uL (0.0-0.2) Sodium Level 138 mmol/L (136-145) Potassium Level 4.6 mmol/L (3.5-5.1) Chloride Level 105 mmol/L (98-107) Carbon Dioxide Level 25 mmol/L (21-32) Anion Gap 8 (6-14) Blood Urea Nitrogen 12 mg/dL (7-20) Creatinine 0.6 mg/dL (0.6-1.0) Estimated GFR (Cockcroft-Gault) 104.6 Glucose Level 150 mg/dL (70-99) Calcium Level 7.9 mg/dL (8.5-10.1) Phosphorus Level 3.1 mg/dL (2.6-4.7) Magnesium Level 2.0 mg/dL (1.8-2.4) Total Bilirubin 7.5 mg/dL (0.2-1.0) Direct Bilirubin 4.9 mg/dL (0.0-0.2) Aspartate Amino Transf (AST/SGOT) 321 U/L (15-37) Alanine Aminotransferase (ALT/SGPT) 154 U/L (14-59) Alkaline Phosphatase 406 U/L (46-116) Total Protein 5.4 g/dL (6.4-8.2) Albumin 2.2 g/dL (3.4-5.0) Test 02/24/21 05:35 Prothrombin Time 16.0 SEC (11.7-14.0) Prothromb Time International Ratio 1.3 (0.8-1.1) Laboratory Tests Test 02/23/21 14:31 02/23/21 15:20 02/23/21 17:05 02/23/21 17:20 White Blood Count 10.5 x10^3/uL (4.0-11.0) Red Blood Count 4.67 x10^6/uL (3.50-5.40) Hemoglobin 14.6 g/dL (12.0-15.5) Hematocrit 43.1 % (36.0-47.0) Mean Corpuscular Volume 92 fL (79-100) Mean Corpuscular Hemoglobin 31 pg (25-35) Mean Corpuscular Hemoglobin Concent 34 g/dL (31-37) Red Cell Distribution Width 16.4 % (11.5-14.5) Platelet Count 53 x10^3/uL (140-400) Neutrophils (%) (Auto) 93 % (31-73) Lymphocytes (%) (Auto) 3 % (24-48) Monocytes (%) (Auto) 4 % (0-9) Eosinophils (%) (Auto) 0 % (0-3) Basophils (%) (Auto) 0 % (0-3) Neutrophils # (Auto) 9.8 x10^3/uL (1.8-7.7) Lymphocytes # (Auto) 0.3 x10^3/uL (1.0-4.8) Monocytes # (Auto) 0.4 x10^3/uL (0.0-1.1) Eosinophils # (Auto) 0.0 x10^3/uL (0.0-0.7) Basophils # (Auto) 0.0 x10^3/uL (0.0-0.2) Segmented Neutrophils % 89 % (35-66) Band Neutrophils % 7 % (0-9) Lymphocytes % 1 % (24-48) Monocytes % 3 % (0-10) Toxic Granulation Slight Platelet Estimate Decreased (ADEQUATE) Schistocytes Occ Sodium Level 130 mmol/L (136-145) Potassium Level 4.7 mmol/L (3.5-5.1) Chloride Level 99 mmol/L (98-107) Carbon Dioxide Level 22 mmol/L (21-32) Anion Gap 9 (6-14) Blood Urea Nitrogen 11 mg/dL (7-20) Creatinine 0.7 mg/dL (0.6-1.0) Estimated GFR (Cockcroft-Gault) 87.5 Glucose Level 236 mg/dL (70-99) Lactic Acid Level 3.6 mmol/L (0.4-2.0) Calcium Level 8.7 mg/dL (8.5-10.1) Total Bilirubin 7.7 mg/dL (0.2-1.0) Direct Bilirubin 5.3 mg/dL (0.0-0.2) Aspartate Amino Transf (AST/SGOT) 387 U/L (15-37) Alanine Aminotransferase (ALT/SGPT) 180 U/L (14-59) Alkaline Phosphatase 516 U/L (46-116) Troponin I Quantitative 0.148 ng/mL (0.000-0.055) GK-Oag-X-Type Natriuretic Peptide 4304 pg/mL (0-124) Total Protein 6.5 g/dL (6.4-8.2) Albumin 2.7 g/dL (3.4-5.0) Lipase 106 U/L (73-393) Ammonia 45 mcmol/L (11-34) SARS-CoV-2 RNA (SANTY) Negative (Negative) O2 Saturation 92 % (92-99) Arterial Blood pH 7.47 (7.35-7.45) Arterial Blood pCO2 at Patient Temp 29 mmHg (35-46) Arterial Blood pO2 at Patient Temp 64 mmHg (75-108) Arterial Blood HCO3 21 mmol/L (21-28) Arterial Blood Base Excess -2 mmol/L (-3-3) Oxyhemoglobin 91.0 % Methemoglobin 0.5 % (0.0-1.9) Carbon Monoxide, Quantitative 0.5 % (0.0-1.9) FiO2 100 nrm Test 02/23/21 18:10 02/23/21 18:35 02/23/21 22:32 02/24/21 03:15 SARS-CoV-2 Antigen (Rapid) Negative (NEGATIVE) Lactic Acid Level 4.5 mmol/L (0.4-2.0) 3.5 mmol/L (0.4-2.0) 2.2 mmol/L (0.4-2.0) White Blood Count 7.3 x10^3/uL (4.0-11.0) Red Blood Count 4.04 x10^6/uL (3.50-5.40) Hemoglobin 12.5 g/dL (12.0-15.5) Hematocrit 37.7 % (36.0-47.0) Mean Corpuscular Volume 93 fL (79-100) Mean Corpuscular Hemoglobin 31 pg (25-35) Mean Corpuscular Hemoglobin Concent 33 g/dL (31-37) Red Cell Distribution Width 18.3 % (11.5-14.5) Platelet Count 20 x10^3/uL (140-400) Neutrophils (%) (Auto) 86 % (31-73) Lymphocytes (%) (Auto) 9 % (24-48) Monocytes (%) (Auto) 5 % (0-9) Eosinophils (%) (Auto) 0 % (0-3) Basophils (%) (Auto) 1 % (0-3) Neutrophils # (Auto) 6.2 x10^3/uL (1.8-7.7) Lymphocytes # (Auto) 0.7 x10^3/uL (1.0-4.8) Monocytes # (Auto) 0.3 x10^3/uL (0.0-1.1) Eosinophils # (Auto) 0.0 x10^3/uL (0.0-0.7) Basophils # (Auto) 0.0 x10^3/uL (0.0-0.2) Sodium Level 138 mmol/L (136-145) Potassium Level 4.6 mmol/L (3.5-5.1) Chloride Level 105 mmol/L (98-107) Carbon Dioxide Level 25 mmol/L (21-32) Anion Gap 8 (6-14) Blood Urea Nitrogen 12 mg/dL (7-20) Creatinine 0.6 mg/dL (0.6-1.0) Estimated GFR (Cockcroft-Gault) 104.6 Glucose Level 150 mg/dL (70-99) Calcium Level 7.9 mg/dL (8.5-10.1) Phosphorus Level 3.1 mg/dL (2.6-4.7) Magnesium Level 2.0 mg/dL (1.8-2.4) Total Bilirubin 7.5 mg/dL (0.2-1.0) Direct Bilirubin 4.9 mg/dL (0.0-0.2) Aspartate Amino Transf (AST/SGOT) 321 U/L (15-37) Alanine Aminotransferase (ALT/SGPT) 154 U/L (14-59) Alkaline Phosphatase 406 U/L (46-116) Total Protein 5.4 g/dL (6.4-8.2) Albumin 2.2 g/dL (3.4-5.0) Test 02/24/21 05:35 Prothrombin Time 16.0 SEC (11.7-14.0) Prothromb Time International Ratio 1.3 (0.8-1.1) Medications Active Scripts Medications Dose Route/Sig Max Daily Dose Days Date Category Ondansetron Odt (Ondansetron) 4 Mg Tab.rapdis 4 Mg PO TIDAC PRN 02/18/21 Rx Tramadol Hcl 50 Mg Tablet 50 Mg PO PRN Q6HRS PRN 02/18/21 Rx Zolpidem Tartrate 5 Mg Tablet 5 Mg PO PRN QHS PRN 02/14/21 Reported Nexium Capsule (Esomeprazole Magnesium) 40 Mg Capsule. 1 Cap PO DAILY 01/26/21 Reported Arimidex (Anastrozole) 1 Mg Tablet 1 Tab PO DAILY 30 01/26/21 Reported Impression . Full note dictated Acute hypoxemic respiratory failure multifactorial Recurrent malignant effusion Possible pneumonia Case discussed with cardiology Case discussed with interventional radiologist, Dr. Turner is willing to proceed with Pleurx catheter SISILLO,SABATO MD Feb 24, 2021 09:23
--- NOTE | 2021-02-24 09:24 | PDOC ---
Infectious Disease Note Vital Sign Vital Signs Vital Signs Date Time Temp Pulse Resp B/P (MAP) Pulse Ox O2 Delivery O2 Flow Rate FiO2 02/24/21 08:00 Non-Rebreather 15.0 02/24/21 08:00 105 20 79/65 (70) 90 02/24/21 05:00 97.5 97.5 Labs Lab Laboratory Tests Test 02/23/21 14:31 02/23/21 15:20 02/23/21 17:05 02/23/21 17:20 White Blood Count 10.5 x10^3/uL (4.0-11.0) Red Blood Count 4.67 x10^6/uL (3.50-5.40) Hemoglobin 14.6 g/dL (12.0-15.5) Hematocrit 43.1 % (36.0-47.0) Mean Corpuscular Volume 92 fL (79-100) Mean Corpuscular Hemoglobin 31 pg (25-35) Mean Corpuscular Hemoglobin Concent 34 g/dL (31-37) Red Cell Distribution Width 16.4 % (11.5-14.5) Platelet Count 53 x10^3/uL (140-400) Neutrophils (%) (Auto) 93 % (31-73) Lymphocytes (%) (Auto) 3 % (24-48) Monocytes (%) (Auto) 4 % (0-9) Eosinophils (%) (Auto) 0 % (0-3) Basophils (%) (Auto) 0 % (0-3) Neutrophils # (Auto) 9.8 x10^3/uL (1.8-7.7) Lymphocytes # (Auto) 0.3 x10^3/uL (1.0-4.8) Monocytes # (Auto) 0.4 x10^3/uL (0.0-1.1) Eosinophils # (Auto) 0.0 x10^3/uL (0.0-0.7) Basophils # (Auto) 0.0 x10^3/uL (0.0-0.2) Segmented Neutrophils % 89 % (35-66) Band Neutrophils % 7 % (0-9) Lymphocytes % 1 % (24-48) Monocytes % 3 % (0-10) Toxic Granulation Slight Platelet Estimate Decreased (ADEQUATE) Schistocytes Occ Sodium Level 130 mmol/L (136-145) Potassium Level 4.7 mmol/L (3.5-5.1) Chloride Level 99 mmol/L (98-107) Carbon Dioxide Level 22 mmol/L (21-32) Anion Gap 9 (6-14) Blood Urea Nitrogen 11 mg/dL (7-20) Creatinine 0.7 mg/dL (0.6-1.0) Estimated GFR (Cockcroft-Gault) 87.5 Glucose Level 236 mg/dL (70-99) Lactic Acid Level 3.6 mmol/L (0.4-2.0) Calcium Level 8.7 mg/dL (8.5-10.1) Total Bilirubin 7.7 mg/dL (0.2-1.0) Direct Bilirubin 5.3 mg/dL (0.0-0.2) Aspartate Amino Transf (AST/SGOT) 387 U/L (15-37) Alanine Aminotransferase (ALT/SGPT) 180 U/L (14-59) Alkaline Phosphatase 516 U/L (46-116) Troponin I Quantitative 0.148 ng/mL (0.000-0.055) HN-Uia-G-Type Natriuretic Peptide 4304 pg/mL (0-124) Total Protein 6.5 g/dL (6.4-8.2) Albumin 2.7 g/dL (3.4-5.0) Lipase 106 U/L (73-393) Ammonia 45 mcmol/L (11-34) SARS-CoV-2 RNA (SANTY) Negative (Negative) O2 Saturation 92 % (92-99) Arterial Blood pH 7.47 (7.35-7.45) Arterial Blood pCO2 at Patient Temp 29 mmHg (35-46) Arterial Blood pO2 at Patient Temp 64 mmHg (75-108) Arterial Blood HCO3 21 mmol/L (21-28) Arterial Blood Base Excess -2 mmol/L (-3-3) Oxyhemoglobin 91.0 % Methemoglobin 0.5 % (0.0-1.9) Carbon Monoxide, Quantitative 0.5 % (0.0-1.9) FiO2 100 nrm Test 02/23/21 18:10 02/23/21 18:35 02/23/21 22:32 02/24/21 03:15 SARS-CoV-2 Antigen (Rapid) Negative (NEGATIVE) Lactic Acid Level 4.5 mmol/L (0.4-2.0) 3.5 mmol/L (0.4-2.0) 2.2 mmol/L (0.4-2.0) White Blood Count 7.3 x10^3/uL (4.0-11.0) Red Blood Count 4.04 x10^6/uL (3.50-5.40) Hemoglobin 12.5 g/dL (12.0-15.5) Hematocrit 37.7 % (36.0-47.0) Mean Corpuscular Volume 93 fL (79-100) Mean Corpuscular Hemoglobin 31 pg (25-35) Mean Corpuscular Hemoglobin Concent 33 g/dL (31-37) Red Cell Distribution Width 18.3 % (11.5-14.5) Platelet Count 20 x10^3/uL (140-400) Neutrophils (%) (Auto) 86 % (31-73) Lymphocytes (%) (Auto) 9 % (24-48) Monocytes (%) (Auto) 5 % (0-9) Eosinophils (%) (Auto) 0 % (0-3) Basophils (%) (Auto) 1 % (0-3) Neutrophils # (Auto) 6.2 x10^3/uL (1.8-7.7) Lymphocytes # (Auto) 0.7 x10^3/uL (1.0-4.8) Monocytes # (Auto) 0.3 x10^3/uL (0.0-1.1) Eosinophils # (Auto) 0.0 x10^3/uL (0.0-0.7) Basophils # (Auto) 0.0 x10^3/uL (0.0-0.2) Sodium Level 138 mmol/L (136-145) Potassium Level 4.6 mmol/L (3.5-5.1) Chloride Level 105 mmol/L (98-107) Carbon Dioxide Level 25 mmol/L (21-32) Anion Gap 8 (6-14) Blood Urea Nitrogen 12 mg/dL (7-20) Creatinine 0.6 mg/dL (0.6-1.0) Estimated GFR (Cockcroft-Gault) 104.6 Glucose Level 150 mg/dL (70-99) Calcium Level 7.9 mg/dL (8.5-10.1) Phosphorus Level 3.1 mg/dL (2.6-4.7) Magnesium Level 2.0 mg/dL (1.8-2.4) Total Bilirubin 7.5 mg/dL (0.2-1.0) Direct Bilirubin 4.9 mg/dL (0.0-0.2) Aspartate Amino Transf (AST/SGOT) 321 U/L (15-37) Alanine Aminotransferase (ALT/SGPT) 154 U/L (14-59) Alkaline Phosphatase 406 U/L (46-116) Total Protein 5.4 g/dL (6.4-8.2) Albumin 2.2 g/dL (3.4-5.0) Test 02/24/21 05:35 Prothrombin Time 16.0 SEC (11.7-14.0) Prothromb Time International Ratio 1.3 (0.8-1.1) Objective Assessment pt seen consult dictated Plan Plan of Care / MAICO PEREZ MD Feb 24, 2021 09:23
--- NOTE | 2021-02-24 09:54 | PDOC ---
Date of Service: DATE: 02/24/21 TIME: 09:48 Objective: Objective: D/w nurse - pretty drowsy, might try vapotherm later, took pills earlier, not interested in eating, wondering about hospice discussion, to have echo. Vital Signs: Vital Signs Date Time Temp Pulse Resp B/P (MAP) Pulse Ox O2 Delivery O2 Flow Rate FiO2 02/24/21 09:00 105 21 77/64 (68) 92 NonRebreather Mask 15.0 02/24/21 05:00 97.5 97.5 Labs: Laboratory Tests Test 02/23/21 14:31 02/23/21 15:20 02/23/21 17:05 02/23/21 17:20 White Blood Count 10.5 x10^3/uL Red Blood Count 4.67 x10^6/uL Hemoglobin 14.6 g/dL Hematocrit 43.1 % Mean Corpuscular Volume 92 fL Mean Corpuscular Hemoglobin 31 pg Mean Corpuscular Hemoglobin Concent 34 g/dL Red Cell Distribution Width 16.4 % Platelet Count 53 x10^3/uL Neutrophils (%) (Auto) 93 % Lymphocytes (%) (Auto) 3 % Monocytes (%) (Auto) 4 % Eosinophils (%) (Auto) 0 % Basophils (%) (Auto) 0 % Neutrophils # (Auto) 9.8 x10^3/uL Lymphocytes # (Auto) 0.3 x10^3/uL Monocytes # (Auto) 0.4 x10^3/uL Eosinophils # (Auto) 0.0 x10^3/uL Basophils # (Auto) 0.0 x10^3/uL Segmented Neutrophils % 89 % Band Neutrophils % 7 % Lymphocytes % 1 % Monocytes % 3 % Toxic Granulation Slight Platelet Estimate Decreased Schistocytes Occ Sodium Level 130 mmol/L Potassium Level 4.7 mmol/L Chloride Level 99 mmol/L Carbon Dioxide Level 22 mmol/L Anion Gap 9 Blood Urea Nitrogen 11 mg/dL Creatinine 0.7 mg/dL Estimated GFR (Cockcroft-Gault) 87.5 Glucose Level 236 mg/dL Lactic Acid Level 3.6 mmol/L Calcium Level 8.7 mg/dL Total Bilirubin 7.7 mg/dL Direct Bilirubin 5.3 mg/dL Aspartate Amino Transf (AST/SGOT) 387 U/L Alanine Aminotransferase (ALT/SGPT) 180 U/L Alkaline Phosphatase 516 U/L Troponin I Quantitative 0.148 ng/mL AK-Kxa-H-Type Natriuretic Peptide 4304 pg/mL Total Protein 6.5 g/dL Albumin 2.7 g/dL Lipase 106 U/L Ammonia 45 mcmol/L SARS-CoV-2 RNA (SANTY) Negative O2 Saturation 92 % Arterial Blood pH 7.47 Arterial Blood pCO2 at Patient Temp 29 mmHg Arterial Blood pO2 at Patient Temp 64 mmHg Arterial Blood HCO3 21 mmol/L Arterial Blood Base Excess -2 mmol/L Oxyhemoglobin 91.0 % Methemoglobin 0.5 % Carbon Monoxide, Quantitative 0.5 % FiO2 100 nrm Test 02/23/21 18:10 02/23/21 18:35 02/23/21 22:32 02/24/21 03:15 SARS-CoV-2 Antigen (Rapid) Negative Lactic Acid Level 4.5 mmol/L 3.5 mmol/L 2.2 mmol/L White Blood Count 7.3 x10^3/uL Red Blood Count 4.04 x10^6/uL Hemoglobin 12.5 g/dL Hematocrit 37.7 % Mean Corpuscular Volume 93 fL Mean Corpuscular Hemoglobin 31 pg Mean Corpuscular Hemoglobin Concent 33 g/dL Red Cell Distribution Width 18.3 % Platelet Count 20 x10^3/uL Neutrophils (%) (Auto) 86 % Lymphocytes (%) (Auto) 9 % Monocytes (%) (Auto) 5 % Eosinophils (%) (Auto) 0 % Basophils (%) (Auto) 1 % Neutrophils # (Auto) 6.2 x10^3/uL Lymphocytes # (Auto) 0.7 x10^3/uL Monocytes # (Auto) 0.3 x10^3/uL Eosinophils # (Auto) 0.0 x10^3/uL Basophils # (Auto) 0.0 x10^3/uL Sodium Level 138 mmol/L Potassium Level 4.6 mmol/L Chloride Level 105 mmol/L Carbon Dioxide Level 25 mmol/L Anion Gap 8 Blood Urea Nitrogen 12 mg/dL Creatinine 0.6 mg/dL Estimated GFR (Cockcroft-Gault) 104.6 Glucose Level 150 mg/dL Calcium Level 7.9 mg/dL Phosphorus Level 3.1 mg/dL Magnesium Level 2.0 mg/dL Total Bilirubin 7.5 mg/dL Direct Bilirubin 4.9 mg/dL Aspartate Amino Transf (AST/SGOT) 321 U/L Alanine Aminotransferase (ALT/SGPT) 154 U/L Alkaline Phosphatase 406 U/L Total Protein 5.4 g/dL Albumin 2.2 g/dL Procalcitonin 0.78 ng/mL Test 02/24/21 05:35 Prothrombin Time 16.0 SEC Prothromb Time International Ratio 1.3 Imaging: Abd US 02/23 Impression: 1. Heterogeneous liver which is relatively hyperechoic in relation to adjacent renal cortex. No discrete mass is identified. The main portal vein is patent. As was noted on the same day CT, MRI is recommended to exclude an infiltrating process. 2. Thick-walled gallbladder. No stones or sludge visualized. The lumen is mostly collapsed. Wall thickening related to hepatic dysfunction or third spacing is favored more likely than cholecystitis. No sonographic Blanchard's sign was observed. 3. Mildly dilated common bile duct. No obstructing process is apparent. Attention on follow-up MRI if performed. 4. Poorly characterized pancreas on account of bowel gas. What is seen of the pancreas is within normal limits. 5. Right pleural effusion. PE: GEN: ill - in isolation w/ COVID precautions, visual exam done LUNGS: 15L NRB HEART: tachycardic ABD: non-distended SKIN: +jaundice NEURO/PSYCH: resting A/P: Metastatic breast cancer Resp failure, jaundice, thrombocytopenia Rapid COVID negative -- Unfortunate situation w/ metastatic cancer. US noted. No plans for GI procedures. Goals of care per Dr. Valencia. Justicifation of Admission Dx: Justifications for Admission: Justification of Admission Dx: Yes SHASHANK GALARZA Feb 24, 2021 09:54 ASHLEY STONER MD Feb 24, 2021 09:57
--- NOTE | 2021-02-24 10:00 | PDOC3 ---
Discharge Summary Date of Admission: Feb 23, 2021 Date of Discharge: Feb 24, 2021 Follow-Up: Other (today at [facility]) Admitting Diagnosis comment: hospital course transfer condition fair prognosis fair consults , id, cardiology, oncology, GI complications, hypoxia, sepsis CT ABDOMEN ========= : 1. Heterogeneous liver which is relatively hyperechoic in relation to adjacent renal cortex. No discrete mass is identified. The main portal vein is patent. As was noted on the same day CT, MRI is recommended to exclude an infiltrating process. 2. Thick-walled gallbladder. No stones or sludge visualized. The lumen is mostly collapsed. Wall thickening related to hepatic dysfunction or third spacing is favored more likely than cholecystitis. No sonographic Blanchard's sign was observed. 3. Mildly dilated common bile duct. No obstructing process is apparent. Attention on follow-up MRI if performed. 4. Poorly characterized pancreas on account of bowel gas. What is seen of the pancreas is within normal limits. 5. Right pleural effusion. CHEST CTA IMPRESSION: 1. There is no pulmonary embolus. 2. Mediastinal and bilateral hilar adenopathy is unchanged. 3. Unchanged moderate pericardial effusion. 4. Change moderate right pleural effusion. 5. There are a few groundglass nodules in the bilateral lower lobes and scattered tree-in-bud opacities in the right lower lobe, likely infectious/inflammatory. 6. The left hepatic lobe is heterogeneously mildly hypodense. No portal vein th rombosis is seen. Increased FDG uptake in the left hepatic lobe was noted on PET. Infiltrative process cannot be excluded. Recommend MR abdomen with and without contrast for further evaluation. 7. There is mild wall thickening of the ascending and proximal and mid transverse colon. Considerations include mild colitis versus pseudothickening due to lack of distention. 8. Moderate pelvic free fluid. transfer impression Sepsis with multiple sources for etiology Acute hypoxic respiratory failure Acute metabolic encephalopathy Acute , Moderate right pleural effusion, increased from prior study. Mild pericardial effusion Cor pulmonale Hyperbilirubinemia Metastatic breast cancer with liver metastasis Elevated troponin suggestive of demand ischemia Transaminitis due to congestive liver versus infiltrative metastatic disease Severe protein malnutrition Thrombocytopenia Hyponatremia Lactic acidemia likely due to metastatic disease to the liver rather than tissue hypoperfusion Diffuse colitis History of metastatic breast cancer , tumor load may respond to aggressive chem otherapy plan Admit to ICU for further management Cardiology consult for pericardial effusion and cor pulmonale Pulmonology consult for pleural effusion and hypoxia GI consult for hyperbilirubinemia and obstructive jaundice Heme-onc consult Continue empiric IV antibiotics Continue IV fluids and maintain maps greater than 65 Vasopressor support as needed O2 supplementation as needed Lovenox for DVT prophylaxis Protonix GI prophylaxis ADA diet Full code PROCALCITONIN Possible sepsis Discussed with RN and SW Disposition ICU management as above Surrogate decision maker is the transfer to [facility] [place] WITH ONCOLOGY D/W BY PHONE, HE AGREES, desires higher level of care, may require a jamel-cardial window due to effusion will transfer jacki d/w patient in room, she understands the need and agrees, she is A RN, and has worked at [facility] in the past 33 minutes of critical care time was spent in reviewing chart, labs, and images. Discussed with RN and SW. and oncology // LYMAN SASHIDHAR MD History of Present Illness History of Present Illness Chief Complaint: Chief Complain: Hypoxia and jaundice History of Present Illness: HPI: Patient is a 55-year-old female who has a history of breast cancer status post mastectomy in 2018 and had breast reconstruction done at [facility]. She also had chemoradiation on February 05, 2019 and she is currently following with heme- onc who saw her today and gave the patient Benadryl and tamoxifen. While in the clinic patient became hypoxic and listless. also states that the patient had jaundice saying that started a couple days prior to her visit at the heme-onc clinic. Bilirubin was drawn to the clinic and they said that her bilirubin was around 6. She is transferred to the ED for further management. On arrival patient was hypoxic and she was placed on O2. She is currently speaking full sentences with me and does not appear to be dyspneic. She is alert and awake and oriented x3 and only complains of some mild vague abdominal pain around her periumbilical area. Denies fevers, nausea vomiting, chest pain, diarrhea or floating stools or bloody stools. ED course: 55-year-old female presenting with jaundice, elevated bilirubin and acute hypoxic respiratory failure. Upon chart review, she had been admitted to the hospital previously and had a pleural effusion and a pericardial effusion with cor pulmonale. Patient is placed on a facemask on arrival. We will do blood work and CT chest abdomen pelvis. Patient oxygen levels came to the low 90s on 15 L nonrebreather. Past Medical/Surgical History: PMH/PSH: Past Medical History: BREAST CA, BILAT MASTECT, IMSOMNIA Past Surgical History: BILAT MASTECT. Allergies: Allergies: Coded Allergies: No Known Drug Allergies (Unverified , 01/28/21) Family History: Family History: Reviewed with no relevant history Social History: Social History: Smoking Status: Never Smoker Alcohol Use: None Current Medications: Current Medications Current Medications Piperacillin Sod/ Tazobactam Sod 3.375 gm/Sodium Chloride 50 ml @ 100 mls/hr 1X ONCE IV Last administered on 02/23/21at 14:56; Start 02/23/21 at 14:30; Stop 02/23/21 at 14:59; Status DC Iohexol (Omnipaque 350 Mg/ml) 100 ml 1X ONCE IV Last administered on 02/23/21at 15:12; Start 02/23/21 at 14:45; Stop 02/23/21 at 14:46; Status DC Info (CONTRAST GIVEN -- Rx MONITORING) 1 each PRN DAILY PRN MC SEE COMMENTS; Start 02/23/21 at 14:45; Stop 02/25/21 at 14:44 Aspirin (Aspirin Chewable) 324 mg 1X ONCE PO ; Start 02/23/21 at 15:15; Stop 02/23/21 at 15:16; Status DC Active Scripts Active Ondansetron Odt (Ondansetron) 4 Mg Tab.rapdis 4 Mg PO TIDAC PRN Tramadol Hcl 50 Mg Tablet 50 Mg PO PRN Q6HRS PRN Reported Zolpidem Tartrate 5 Mg Tablet 5 Mg PO PRN QHS PRN Nexium Capsule (Esomeprazole Magnesium) 40 Mg Capsule.dr 1 Cap PO DAILY Arimidex (Anastrozole) 1 Mg Tablet 1 Tab PO DAILY 30 Days ROS: Review of Systems Review of System REVIEW OF SYSTEMS: GENERAL: Denies weakness SKIN: No bruising, hair changes or rashes. EYES: No blurred, double or loss of vision. NOSE AND THROAT: No history of nosebleeds, hoarseness or sore throat. HEART: No history of palpitations, chest pain or shortness of breath on exertion. LUNGS: Denies cough, hemoptysis, wheezing or shortness of breath. GASTROINTESTINAL: Denies changes in appetite, nausea, vomiting, diarrhea or constipation. GENITOURINARY: No history of frequency, urgency, hesitancy or nocturia. NEUROLOGIC: Denies history of numbness, tingling, or tremor. PSYCHIATRIC: No history of panic, anxiety or depression. ENDOCRINE: No history of heat or cold intolerance, polyuria or polydipsia. EXTREMITIES: Denies joint pain, pain on walking or stiffness. Vitals Vitals Vital Signs Date Time Temp Pulse Resp B/P (MAP) Pulse Ox O2 Delivery O2 Flow Rate FiO2 02/24/21 08:00 Non-Rebreather 15.0 02/24/21 07:00 105 22 91/66 (74) 92 02/24/21 05:00 97.5 97.5 Physical Exam General: Alert, Oriented X3, Cooperative, mild distress Heart: Regular rate, Normal S1, Normal S2 Lungs: Clear Abdomen: Normal bowel sounds, Soft, No tenderness Extremities: No clubbing, No cyanosis Skin: No breakdown Labs LABS XR CHEST 1V Clinical Indication: Reason: HYPOXIA / Spl. Instructions: / History: Comparison: AP chest February 14, 2021. Findings: There is new right chest Port-A-Cath, tip at superior atrial caval junction. The cardiomediastinal silhouette is stable. The left lung is clear. There is moderate right pleural effusion. There is right basilar airspace disease. No pneumothorax is identified. No acute bone abnormality is seen. IMPRESSION: 1. Moderate right pleural effusion, increased from prior study. 2. Right basilar airspace disease, compressive atelectasis or pneumonia. Electronically signed by: Pelon Courtney MD (02/23/2021 3:22 PM) [id number] DICTATED and SIGNED BY: PELON COURTNEY MD DATE: 02/23/21 [id number] PATIENT: ZACK SALOMON ACCOUNT: [id number] : 1965 LOCATION: ER AGE: 55 SEX: F EXAM STATUS: REG ER ORD. PHYSICIAN: DEE DEE NARAYANAN MD REASON: Jaundice PROCEDURE: ABDOMEN COMPLETE STUDY: US Abdomen Complete INDICATION: Jaundice. COMPARISON: Limited abdominal ultrasound 01/27/2020; same day CT TECHNIQUE: Real-time grayscale and color Doppler sonographic evaluation of the abdomen. Findings: Pancreas: Limited visualization on account of bowel gas. The visualized portion is without a discrete mass or ductal dilatation. Liver: Measures within normal limits for size at 15.5 cm longitudinal. Heterogeneous parenchymal echogenicity which is in general hyperechoic when correlating with adjacent renal cortex. No discrete mass by ultrasound. Aorta/IVC/Main Portal Vein: Unremarkable IVC at the liver. The visualized aorta is nonaneurysmal. The main portal vein is patent. Gall Bladder: The gallbladder wall is thickened. The lumen is partially collapsed. No stones or sludge visualized but assessment is limited. Common Bile Duct: Measures prominent in transverse dimension at just under 0.7 cm. Right Kidney: Measures 10.8 cm in length. Normal cortical thickness and echogenicity. No hydronephrosis. Left Kidney: Measures 9.3 cm in length. Assessment is limited by bowel gas. Cortical thickness and echogenicity appears to be within normal limits. No hydronephrosis. Spleen: Within normal limits for size. Miscellaneous: Right-sided pleural effusion. Impression: 1. Heterogeneous liver which is relatively hyperechoic in relation to adjacent renal cortex. No discrete mass is identified. The main portal vein is patent. As was noted on the same day CT, MRI is recommended to exclude an infiltrating process. 2. Thick-walled gallbladder. No stones or sludge visualized. The lumen is mostly collapsed. Wall thickening related to hepatic dysfunction or third spacing is favored more likely than cholecystitis. No sonographic Blanchard's sign was observed. 3. Mildly dilated common bile duct. No obstructing process is apparent. Attention on follow-up MRI if performed. 4. Poorly characterized pancreas on account of bowel gas. What is seen of the pancreas is within normal limits. 5. Right pleural effusion. Electronically signed by: GERALD HENNESSY MD (02/23/2021 5:19 PM) [facility] DICTATED and SIGNED BY: GERALD HENNESSY MD PATIENT: ZACK SALOMON ACCOUNT: [id number] : 1965 LOCATION: ER AGE: 55 SEX: F EXAM STATUS: REG ER ORD. PHYSICIAN: DONTA MOSQUERA MD REASON: HYPOXIA, R/O PE, JAUNDICE PROCEDURE: CT ANGIO CHEST W ABD PEL W/ PQRS Compliance Statement: One or more of the following individualized dose reduction techniques were utilized for this examination: 1. Automated exposure control 2. Adjustment of the mA and/or kV according to patient size 3. Use of iterative reconstruction technique CTA CHEST_ABDOMEN_AND PELVIS Clinical Indication: Reason: HYPOXIA, , JAUNDICE history of breast cancer. Comparison: CT PE February 15, 2021. Technique: Helical CT of the chest was performed after the administration of 100 cc of Omnipaque 350 intravenous contrast according to PE protocol. Axial and coronal reconstructions were obtained. 3-D MIP images were constructed to better evaluate the pulmonary arteries. Helical CT imaging continued in the abdomen and pelvis. Findings: Pulmonary arteries are adequately opacified. There is no evidence of pulmonary embolism. Pulmonary trunk is dilated suggesting portal hypertension. Right chest Port-A-Cath. There is no thoracic aortic dissection. The thoracic aorta is normal caliber. Bilateral mastectomy is redemonstrated. There are right axillary surgical clips. Mediastinal and bilateral hilar adenopathy is stable. There is moderate pericardial effusion, unchanged. The cardiac size is normal. There is moderate right pleural effusion, unchanged. The central airways are patent. Radiation fibrosis anterior right lung is stable. Right apical nodule is unchanged, image 38. There is mild compressive atelectasis in the right lower lobe adjacent to the effusion. In the right lower lobe there are new subcentimeter groundglass nodules and scattered tree-in-bud opacities. Nodule in the left upper lobe is unchanged, ground glass halo has decreased. 2 nodular opacities in the left lower lobe are unchanged, image 142. There are a few new subcentimeter groundglass nodules in the left lower lobe that are probably infectious/inflammatory. The left hepatic lobe is heterogeneously mildly hypodense. Increased FDG uptake was seen in this distribution on PET. Infiltrative process cannot be excluded. The portal vein is without thrombus, there is admixing of contrast and unopacified blood. The gallbladder is contracted accentuating the wall thickness. There is trace pericholecystic fluid. Spleen size is normal. The pancreas and adrenal glands and abdominal aorta and kidneys are normal. No obvious abnormality the stomach. There is moderate induration of the upper central mesentery, nonspecific. There is no small bowel obstruction. The appendix is normal. There is mild wall thickening of the ascending and proximal and mid transverse colon. Atrophic uterus. There is moderate pelvic free fluid. Urinary bladder is normal. No osteolytic or blastic lesion is seen. IMPRESSION: 1. There is no pulmonary embolus. 2. Mediastinal and bilateral hilar adenopathy is unchanged. 3. Unchanged moderate pericardial effusion. 4. Change moderate right pleural effusion. 5. There are a few groundglass nodules in the bilateral lower lobes and scattered tree-in-bud opacities in the right lower lobe, likely infe ctious/inflammatory. 6. The left hepatic lobe is heterogeneously mildly hypodense. No portal vein thrombosis is seen. Increased FDG uptake in the left hepatic lobe was noted on PET. Infiltrative process cannot be excluded. Recommend MR abdomen with and wi thout contrast for further evaluation. 7. There is mild wall thickening of the ascending and proximal and mid transverse colon. Considerations include mild colitis versus pseudothickening due to lack of distention. 8. Moderate pelvic free fluid. Electronically signed by: Pelon Courtney MD (02/23/2021 3:40 PM) [id number] DICTATED and SIGNED BY: PELON COURTNEY MD DATE: 02/23/21 [id number] Laboratory Tests Test 02/23/21 14:31 02/23/21 15:20 02/23/21 17:05 02/23/21 17:20 White Blood Count 10.5 x10^3/uL (4.0-11.0) Red Blood Count 4.67 x10^6/uL (3.50-5.40) Hemoglobin 14.6 g/dL (12.0-15.5) Hematocrit 43.1 % (36.0-47.0) Mean Corpuscular Volume 92 fL (79-100) Mean Corpuscular Hemoglobin 31 pg (25-35) Mean Corpuscular Hemoglobin Concent 34 g/dL (31-37) Red Cell Distribution Width 16.4 % (11.5-14.5) Platelet Count 53 x10^3/uL (140-400) Neutrophils (%) (Auto) 93 % (31-73) Lymphocytes (%) (Auto) 3 % (24-48) Monocytes (%) (Auto) 4 % (0-9) Eosinophils (%) (Auto) 0 % (0-3) Basophils (%) (Auto) 0 % (0-3) Neutrophils # (Auto) 9.8 x10^3/uL (1.8-7.7) Lymphocytes # (Auto) 0.3 x10^3/uL (1.0-4.8) Monocytes # (Auto) 0.4 x10^3/uL (0.0-1.1) Eosinophils # (Auto) 0.0 x10^3/uL (0.0-0.7) Basophils # (Auto) 0.0 x10^3/uL (0.0-0.2) Segmented Neutrophils % 89 % (35-66) Band Neutrophils % 7 % (0-9) Lymphocytes % 1 % (24-48) Monocytes % 3 % (0-10) Toxic Granulation Slight Platelet Estimate Decreased (ADEQUATE) Schistocytes Occ Sodium Level 130 mmol/L (136-145) Potassium Level 4.7 mmol/L (3.5-5.1) Chloride Level 99 mmol/L (98-107) Carbon Dioxide Level 22 mmol/L (21-32) Anion Gap 9 (6-14) Blood Urea Nitrogen 11 mg/dL (7-20) Creatinine 0.7 mg/dL (0.6-1.0) Estimated GFR (Cockcroft-Gault) 87.5 Glucose Level 236 mg/dL (70-99) Lactic Acid Level 3.6 mmol/L (0.4-2.0) Calcium Level 8.7 mg/dL (8.5-10.1) Total Bilirubin 7.7 mg/dL (0.2-1.0) Direct Bilirubin 5.3 mg/dL (0.0-0.2) Aspartate Amino Transf (AST/SGOT) 387 U/L (15-37) Alanine Aminotransferase (ALT/SGPT) 180 U/L (14-59) Alkaline Phosphatase 516 U/L (46-116) Troponin I Quantitative 0.148 ng/mL (0.000-0.055) ID-Enx-E-Type Natriuretic Peptide 4304 pg/mL (0-124) Total Protein 6.5 g/dL (6.4-8.2) Albumin 2.7 g/dL (3.4-5.0) Lipase 106 U/L (73-393) Ammonia 45 mcmol/L (11-34) SARS-CoV-2 RNA (SANTY) Negative (Negative) O2 Saturation 92 % (92-99) Arterial Blood pH 7.47 (7.35-7.45) Arterial Blood pCO2 at Patient Temp 29 mmHg (35-46) Arterial Blood pO2 at Patient Temp 64 mmHg (75-108) Arterial Blood HCO3 21 mmol/L (21-28) Arterial Blood Base Excess -2 mmol/L (-3-3) Oxyhemoglobin 91.0 % Methemoglobin 0.5 % (0.0-1.9) Carbon Monoxide, Quantitative 0.5 % (0.0-1.9) FiO2 100 nrm Test 02/23/21 18:10 02/23/21 18:35 02/23/21 22:32 02/24/21 03:15 SARS-CoV-2 Antigen (Rapid) Negative (NEGATIVE) Lactic Acid Level 4.5 mmol/L (0.4-2.0) 3.5 mmol/L (0.4-2.0) 2.2 mmol/L (0.4-2.0) White Blood Count 7.3 x10^3/uL (4.0-11.0) Red Blood Count 4.04 x10^6/uL (3.50-5.40) Hemoglobin 12.5 g/dL (12.0-15.5) Hematocrit 37.7 % (36.0-47.0) Mean Corpuscular Volume 93 fL (79-100) Mean Corpuscular Hemoglobin 31 pg (25-35) Mean Corpuscular Hemoglobin Concent 33 g/dL (31-37) Red Cell Distribution Width 18.3 % (11.5-14.5) Platelet Count 20 x10^3/uL (140-400) Neutrophils (%) (Auto) 86 % (31-73) Lymphocytes (%) (Auto) 9 % (24-48) Monocytes (%) (Auto) 5 % (0-9) Eosinophils (%) (Auto) 0 % (0-3) Basophils (%) (Auto) 1 % (0-3) Neutrophils # (Auto) 6.2 x10^3/uL (1.8-7.7) Lymphocytes # (Auto) 0.7 x10^3/uL (1.0-4.8) Monocytes # (Auto) 0.3 x10^3/uL (0.0-1.1) Eosinophils # (Auto) 0.0 x10^3/uL (0.0-0.7) Basophils # (Auto) 0.0 x10^3/uL (0.0-0.2) Sodium Level 138 mmol/L (136-145) Potassium Level 4.6 mmol/L (3.5-5.1) Chloride Level 105 mmol/L (98-107) Carbon Dioxide Level 25 mmol/L (21-32) Anion Gap 8 (6-14) Blood Urea Nitrogen 12 mg/dL (7-20) Creatinine 0.6 mg/dL (0.6-1.0) Estimated GFR (Cockcroft-Gault) 104.6 Glucose Level 150 mg/dL (70-99) Calcium Level 7.9 mg/dL (8.5-10.1) Phosphorus Level 3.1 mg/dL (2.6-4.7) Magnesium Level 2.0 mg/dL (1.8-2.4) Total Bilirubin 7.5 mg/dL (0.2-1.0) Direct Bilirubin 4.9 mg/dL (0.0-0.2) Aspartate Amino Transf (AST/SGOT) 321 U/L (15-37) Alanine Aminotransferase (ALT/SGPT) 154 U/L (14-59) Alkaline Phosphatase 406 U/L (46-116) Total Protein 5.4 g/dL (6.4-8.2) Albumin 2.2 g/dL (3.4-5.0) Test 02/24/21 05:35 Prothrombin Time 16.0 SEC (11.7-14.0) Prothromb Time International Ratio 1.3 (0.8-1.1) FINAL DIAGNOSIS Problems Medical Problems: (1) Hyperbilirubinemia Status: Acute (2) Lactic acidosis Status: Acute (3) Metastatic breast cancer Status: Acute (4) Pleural effusion Status: Acute (5) Respiratory failure with hypoxia Status: Acute (6) Tachycardia Status: Acute Brief Hospital Course Ms. Salomon is a 55 old [sex] who presented with [ ] Discharge Medications Current Medications Piperacillin Sod/ Tazobactam Sod 3.375 gm/Sodium Chloride 50 ml @ 100 mls/hr 1X ONCE IV Last administered on 02/23/21at 14:56; Start 02/23/21 at 14:30; Stop 02/23 at 14:59; Status DC Iohexol (Omnipaque 350 Mg/ml) 100 ml 1X ONCE IV Last administered on 02/23/21at 15:12; Start 02/23/21 at 14:45; Stop 02/23/21 at 14:46; Status DC Info (CONTRAST GIVEN -- Rx MONITORING) 1 each PRN DAILY PRN MC SEE COMMENTS; Start 02/23/21 at 14:45; Stop 02/25/21 at 14:44 Aspirin (Aspirin Chewable) 324 mg 1X ONCE PO Last administered on 02/23/21at 15:43; Start 02/23/21 at 15:15; Stop 02/23/21 at 15:16; Status DC Sennosides (Senna) 17.2 mg PRN BID PRN PO CONSTIPATION; Start 02/23/21 at 16:00 Docusate Sodium (Colace) 100 mg PRN DAILY PRN PO HARD STOOLS; Start 02/23/21 at 16:00 Ondansetron HCl (Zofran) 4 mg PRN Q6HRS PRN IVP NAUSEA/VOMITING; Start 02/23/21 at 16:00 Dextrose (Dextrose 50%-Water Syringe) 12.5 gm PRN Q15MIN PRN IV SEE COMMENTS; Start 02/23/21 at 16:00 Acetaminophen (Tylenol) 650 mg PRN Q4HRS PRN PO TEMP OVER 100.4F OR MILD PAIN Last administered on 02/23/21at 20:43; Start 02/23/21 at 16:00 Enoxaparin Sodium (Lovenox 40mg Syringe) 40 mg Q24H SQ Last administered on 02/23/21at 20:44; Start 02/23/21 at 21:00 Piperacillin Sod/ Tazobactam Sod (Zosyn Per Pharmacy) 1 each PRN DAILY PRN MC SEE COMMENTS; Start 02/23/21 at 16:00 Pantoprazole Sodium (PROTONIX VIAL for IV PUSH) 40 mg DAILY IVP Last administered on 02/24/21at 08:28; Start 02/24/21 at 09:00 Sodium Chloride 500 ml @ 500 mls/hr 1X ONCE IV Last administered on 02/23/21at 16:42; Start 02/23/21 at 16:15; Stop 02/23/21 at 17:14; Status DC Piperacillin Sod/ Tazobactam Sod 3.375 gm/Sodium Chloride 50 ml @ 100 mls/hr Q6HRS IV Last administered on 02/24/21at 06:04; Start 02/23/21 at 18:00 Sodium Chloride 500 ml @ 500 mls/hr 1X ONCE IV Last administered on 02/23/21at 19:48; Start 02/23/21 at 19:45; Stop 02/23/21 at 20:44; Status DC Anastrozole (Arimidex) 1 mg DAILY PO Last administered on 02/24/21at 08:29; Start 02/23/21 at 22:00 Active Scripts Active Ondansetron Odt (Ondansetron) 4 Mg Tab.rapdis 4 Mg PO TIDAC PRN Tramadol Hcl 50 Mg Tablet 50 Mg PO PRN Q6HRS PRN Reported Zolpidem Tartrate 5 Mg Tablet 5 Mg PO PRN QHS PRN Nexium Capsule (Esomeprazole Magnesium) 40 Mg Capsule.dr 1 Cap PO DAILY Arimidex (Anastrozole) 1 Mg Tablet 1 Tab PO DAILY 30 Days Vital Signs Vital Signs Date Time Temp Pulse Resp B/P (MAP) Pulse Ox O2 Delivery O2 Flow Rate FiO2 02/24/21 09:00 105 21 77/64 (68) 92 NonRebreather Mask 15.0 02/24/21 05:00 97.5 97.5 Labs Laboratory Tests Test 02/23/21 14:31 02/23/21 15:20 02/23/21 17:05 02/23/21 17:20 White Blood Count 10.5 x10^3/uL (4.0-11.0) Red Blood Count 4.67 x10^6/uL (3.50-5.40) Hemoglobin 14.6 g/dL (12.0-15.5) Hematocrit 43.1 % (36.0-47.0) Mean Corpuscular Volume 92 fL (79-100) Mean Corpuscular Hemoglobin 31 pg (25-35) Mean Corpuscular Hemoglobin Concent 34 g/dL (31-37) Red Cell Distribution Width 16.4 % (11.5-14.5) Platelet Count 53 x10^3/uL (140-400) Neutrophils (%) (Auto) 93 % (31-73) Lymphocytes (%) (Auto) 3 % (24-48) Monocytes (%) (Auto) 4 % (0-9) Eosinophils (%) (Auto) 0 % (0-3) Basophils (%) (Auto) 0 % (0-3) Neutrophils # (Auto) 9.8 x10^3/uL (1.8-7.7) Lymphocytes # (Auto) 0.3 x10^3/uL (1.0-4.8) Monocytes # (Auto) 0.4 x10^3/uL (0.0-1.1) Eosinophils # (Auto) 0.0 x10^3/uL (0.0-0.7) Basophils # (Auto) 0.0 x10^3/uL (0.0-0.2) Segmented Neutrophils % 89 % (35-66) Band Neutrophils % 7 % (0-9) Lymphocytes % 1 % (24-48) Monocytes % 3 % (0-10) Toxic Granulation Slight Platelet Estimate Decreased (ADEQUATE) Schistocytes Occ Sodium Level 130 mmol/L (136-145) Potassium Level 4.7 mmol/L (3.5-5.1) Chloride Level 99 mmol/L (98-107) Carbon Dioxide Level 22 mmol/L (21-32) Anion Gap 9 (6-14) Blood Urea Nitrogen 11 mg/dL (7-20) Creatinine 0.7 mg/dL (0.6-1.0) Estimated GFR (Cockcroft-Gault) 87.5 Glucose Level 236 mg/dL (70-99) Lactic Acid Level 3.6 mmol/L (0.4-2.0) Calcium Level 8.7 mg/dL (8.5-10.1) Total Bilirubin 7.7 mg/dL (0.2-1.0) Direct Bilirubin 5.3 mg/dL (0.0-0.2) Aspartate Amino Transf (AST/SGOT) 387 U/L (15-37) Alanine Aminotransferase (ALT/SGPT) 180 U/L (14-59) Alkaline Phosphatase 516 U/L (46-116) Troponin I Quantitative 0.148 ng/mL (0.000-0.055) UD-Csz-W-Type Natriuretic Peptide 4304 pg/mL (0-124) Total Protein 6.5 g/dL (6.4-8.2) Albumin 2.7 g/dL (3.4-5.0) Lipase 106 U/L (73-393) Ammonia 45 mcmol/L (11-34) SARS-CoV-2 RNA (SANTY) Negative (Negative) O2 Saturation 92 % (92-99) Arterial Blood pH 7.47 (7.35-7.45) Arterial Blood pCO2 at Patient Temp 29 mmHg (35-46) Arterial Blood pO2 at Patient Temp 64 mmHg (75-108) Arterial Blood HCO3 21 mmol/L (21-28) Arterial Blood Base Excess -2 mmol/L (-3-3) Oxyhemoglobin 91.0 % Methemoglobin 0.5 % (0.0-1.9) Carbon Monoxide, Quantitative 0.5 % (0.0-1.9) FiO2 100 nrm Test 02/23/21 18:10 02/23/21 18:35 02/23/21 22:32 02/24/21 03:15 SARS-CoV-2 Antigen (Rapid) Negative (NEGATIVE) Lactic Acid Level 4.5 mmol/L (0.4-2.0) 3.5 mmol/L (0.4-2.0) 2.2 mmol/L (0.4-2.0) White Blood Count 7.3 x10^3/uL (4.0-11.0) Red Blood Count 4.04 x10^6/uL (3.50-5.40) Hemoglobin 12.5 g/dL (12.0-15.5) Hematocrit 37.7 % (36.0-47.0) Mean Corpuscular Volume 93 fL (79-100) Mean Corpuscular Hemoglobin 31 pg (25-35) Mean Corpuscular Hemoglobin Concent 33 g/dL (31-37) Red Cell Distribution Width 18.3 % (11.5-14.5) Platelet Count 20 x10^3/uL (140-400) Neutrophils (%) (Auto) 86 % (31-73) Lymphocytes (%) (Auto) 9 % (24-48) Monocytes (%) (Auto) 5 % (0-9) Eosinophils (%) (Auto) 0 % (0-3) Basophils (%) (Auto) 1 % (0-3) Neutrophils # (Auto) 6.2 x10^3/uL (1.8-7.7) Lymphocytes # (Auto) 0.7 x10^3/uL (1.0-4.8) Monocytes # (Auto) 0.3 x10^3/uL (0.0-1.1) Eosinophils # (Auto) 0.0 x10^3/uL (0.0-0.7) Basophils # (Auto) 0.0 x10^3/uL (0.0-0.2) Sodium Level 138 mmol/L (136-145) Potassium Level 4.6 mmol/L (3.5-5.1) Chloride Level 105 mmol/L (98-107) Carbon Dioxide Level 25 mmol/L (21-32) Anion Gap 8 (6-14) Blood Urea Nitrogen 12 mg/dL (7-20) Creatinine 0.6 mg/dL (0.6-1.0) Estimated GFR (Cockcroft-Gault) 104.6 Glucose Level 150 mg/dL (70-99) Calcium Level 7.9 mg/dL (8.5-10.1) Phosphorus Level 3.1 mg/dL (2.6-4.7) Magnesium Level 2.0 mg/dL (1.8-2.4) Total Bilirubin 7.5 mg/dL (0.2-1.0) Direct Bilirubin 4.9 mg/dL (0.0-0.2) Aspartate Amino Transf (AST/SGOT) 321 U/L (15-37) Alanine Aminotransferase (ALT/SGPT) 154 U/L (14-59) Alkaline Phosphatase 406 U/L (46-116) Total Protein 5.4 g/dL (6.4-8.2) Albumin 2.2 g/dL (3.4-5.0) Procalcitonin 0.78 ng/mL (0.00-0.10) Test 02/24/21 05:35 Prothrombin Time 16.0 SEC (11.7-14.0) Prothromb Time International Ratio 1.3 (0.8-1.1) Laboratory Tests Test 02/23/21 14:31 02/23/21 15:20 02/23/21 17:05 02/23/21 17:20 White Blood Count 10.5 x10^3/uL (4.0-11.0) Red Blood Count 4.67 x10^6/uL (3.50-5.40) Hemoglobin 14.6 g/dL (12.0-15.5) Hematocrit 43.1 % (36.0-47.0) Mean Corpuscular Volume 92 fL (79-100) Mean Corpuscular Hemoglobin 31 pg (25-35) Mean Corpuscular Hemoglobin Concent 34 g/dL (31-37) Red Cell Distribution Width 16.4 % (11.5-14.5) Platelet Count 53 x10^3/uL (140-400) Neutrophils (%) (Auto) 93 % (31-73) Lymphocytes (%) (Auto) 3 % (24-48) Monocytes (%) (Auto) 4 % (0-9) Eosinophils (%) (Auto) 0 % (0-3) Basophils (%) (Auto) 0 % (0-3) Neutrophils # (Auto) 9.8 x10^3/uL (1.8-7.7) Lymphocytes # (Auto) 0.3 x10^3/uL (1.0-4.8) Monocytes # (Auto) 0.4 x10^3/uL (0.0-1.1) Eosinophils # (Auto) 0.0 x10^3/uL (0.0-0.7) Basophils # (Auto) 0.0 x10^3/uL (0.0-0.2) Segmented Neutrophils % 89 % (35-66) Band Neutrophils % 7 % (0-9) Lymphocytes % 1 % (24-48) Monocytes % 3 % (0-10) Toxic Granulation Slight Platelet Estimate Decreased (ADEQUATE) Schistocytes Occ Sodium Level 130 mmol/L (136-145) Potassium Level 4.7 mmol/L (3.5-5.1) Chloride Level 99 mmol/L (98-107) Carbon Dioxide Level 22 mmol/L (21-32) Anion Gap 9 (6-14) Blood Urea Nitrogen 11 mg/dL (7-20) Creatinine 0.7 mg/dL (0.6-1.0) Estimated GFR (Cockcroft-Gault) 87.5 Glucose Level 236 mg/dL (70-99) Lactic Acid Level 3.6 mmol/L (0.4-2.0) Calcium Level 8.7 mg/dL (8.5-10.1) Total Bilirubin 7.7 mg/dL (0.2-1.0) Direct Bilirubin 5.3 mg/dL (0.0-0.2) Aspartate Amino Transf (AST/SGOT) 387 U/L (15-37) Alanine Aminotransferase (ALT/SGPT) 180 U/L (14-59) Alkaline Phosphatase 516 U/L (46-116) Troponin I Quantitative 0.148 ng/mL (0.000-0.055) IL-Qoq-Z-Type Natriuretic Peptide 4304 pg/mL (0-124) Total Protein 6.5 g/dL (6.4-8.2) Albumin 2.7 g/dL (3.4-5.0) Lipase 106 U/L (73-393) Ammonia 45 mcmol/L (11-34) SARS-CoV-2 RNA (SANTY) Negative (Negative) O2 Saturation 92 % (92-99) Arterial Blood pH 7.47 (7.35-7.45) Arterial Blood pCO2 at Patient Temp 29 mmHg (35-46) Arterial Blood pO2 at Patient Temp 64 mmHg (75-108) Arterial Blood HCO3 21 mmol/L (21-28) Arterial Blood Base Excess -2 mmol/L (-3-3) Oxyhemoglobin 91.0 % Methemoglobin 0.5 % (0.0-1.9) Carbon Monoxide, Quantitative 0.5 % (0.0-1.9) FiO2 100 nrm Test 02/23/21 18:10 02/23/21 18:35 02/23/21 22:32 02/24/21 03:15 SARS-CoV-2 Antigen (Rapid) Negative (NEGATIVE) Lactic Acid Level 4.5 mmol/L (0.4-2.0) 3.5 mmol/L (0.4-2.0) 2.2 mmol/L (0.4-2.0) White Blood Count 7.3 x10^3/uL (4.0-11.0) Red Blood Count 4.04 x10^6/uL (3.50-5.40) Hemoglobin 12.5 g/dL (12.0-15.5) Hematocrit 37.7 % (36.0-47.0) Mean Corpuscular Volume 93 fL (79-100) Mean Corpuscular Hemoglobin 31 pg (25-35) Mean Corpuscular Hemoglobin Concent 33 g/dL (31-37) Red Cell Distribution Width 18.3 % (11.5-14.5) Platelet Count 20 x10^3/uL (140-400) Neutrophils (%) (Auto) 86 % (31-73) Lymphocytes (%) (Auto) 9 % (24-48) Monocytes (%) (Auto) 5 % (0-9) Eosinophils (%) (Auto) 0 % (0-3) Basophils (%) (Auto) 1 % (0-3) Neutrophils # (Auto) 6.2 x10^3/uL (1.8-7.7) Lymphocytes # (Auto) 0.7 x10^3/uL (1.0-4.8) Monocytes # (Auto) 0.3 x10^3/uL (0.0-1.1) Eosinophils # (Auto) 0.0 x10^3/uL (0.0-0.7) Basophils # (Auto) 0.0 x10^3/uL (0.0-0.2) Sodium Level 138 mmol/L (136-145) Potassium Level 4.6 mmol/L (3.5-5.1) Chloride Level 105 mmol/L (98-107) Carbon Dioxide Level 25 mmol/L (21-32) Anion Gap 8 (6-14) Blood Urea Nitrogen 12 mg/dL (7-20) Creatinine 0.6 mg/dL (0.6-1.0) Estimated GFR (Cockcroft-Gault) 104.6 Glucose Level 150 mg/dL (70-99) Calcium Level 7.9 mg/dL (8.5-10.1) Phosphorus Level 3.1 mg/dL (2.6-4.7) Magnesium Level 2.0 mg/dL (1.8-2.4) Total Bilirubin 7.5 mg/dL (0.2-1.0) Direct Bilirubin 4.9 mg/dL (0.0-0.2) Aspartate Amino Transf (AST/SGOT) 321 U/L (15-37) Alanine Aminotransferase (ALT/SGPT) 154 U/L (14-59) Alkaline Phosphatase 406 U/L (46-116) Total Protein 5.4 g/dL (6.4-8.2) Albumin 2.2 g/dL (3.4-5.0) Procalcitonin 0.78 ng/mL (0.00-0.10) Test 02/24/21 05:35 Prothrombin Time 16.0 SEC (11.7-14.0) Prothromb Time International Ratio 1.3 (0.8-1.1) Allergies Allergies Coded Allergies Type Severity Reaction Last Updated Verified No Known Drug Allergies 01/28/21 No Disposition/Orders: Other (TRANSFER TO [facility]) Justicifation of Admission Dx: Justifications for Admission: Justification of Admission Dx: Yes GUSTAVO DOMINGUEZ MD Feb 24, 2021 10:00
--- NOTE | 2021-02-24 10:10 | NUR ---
SS following up with discharge planning. SS reviewed pt chart and discussed with RN, Kanwal. Pt is from home with spouse and is currently requiring oxygen at 15 liters non-rebreather. Pt on IV Zosyn. Pt had pericardial effusion with high right ventricular pressures. Platelet count of 20. Pt has cancer. Pt was on services at home with [facility] for oxygen, ; fax [phone], and [facility], ; fax [phone]. Cardiology and Oncology requesting transfer to for higher level of care. Dr. Valencia notified. SS contacted transfer team, ; fax [phone], and spoke with Pa in the transfer center. SS faxed records to as requested. SS contacted radiology, [phone], and requested that images be clouded to . Packet, transfer form, and ambulance form on the chart.
--- NOTE | 2021-02-24 11:34 | PDOC ---
CARDIO Progress Notes Date and Time Date of Service 02/24/2021 Time of Evaluation 0930 Subjective Subjective: No Chest Pain, No Palpitations, Other (SOA better with NRB) Vitals Vitals Vital Signs Date Time Temp Pulse Resp B/P (MAP) Pulse Ox O2 Delivery O2 Flow Rate FiO2 02/24/21 11:00 118 21 78/64 (69) 92 NonRebreather Mask 15.0 02/24/21 05:00 97.5 97.5 Weight Weight [ ] Input and Output Intake and Output Intake and Output 02/24/21 07:00 Intake Total 1050 ml Output Total 350 ml Balance 700 ml Intake Oral 100 ml IV Total 950 ml Output Urine Total 350 ml Laboratory Labs Laboratory Tests Test 02/23/21 14:31 02/23/21 15:20 02/23/21 17:05 02/23/21 17:20 White Blood Count 10.5 x10^3/uL (4.0-11.0) Red Blood Count 4.67 x10^6/uL (3.50-5.40) Hemoglobin 14.6 g/dL (12.0-15.5) Hematocrit 43.1 % (36.0-47.0) Mean Corpuscular Volume 92 fL (79-100) Mean Corpuscular Hemoglobin 31 pg (25-35) Mean Corpuscular Hemoglobin Concent 34 g/dL (31-37) Red Cell Distribution Width 16.4 % (11.5-14.5) Platelet Count 53 x10^3/uL (140-400) Neutrophils (%) (Auto) 93 % (31-73) Lymphocytes (%) (Auto) 3 % (24-48) Monocytes (%) (Auto) 4 % (0-9) Eosinophils (%) (Auto) 0 % (0-3) Basophils (%) (Auto) 0 % (0-3) Neutrophils # (Auto) 9.8 x10^3/uL (1.8-7.7) Lymphocytes # (Auto) 0.3 x10^3/uL (1.0-4.8) Monocytes # (Auto) 0.4 x10^3/uL (0.0-1.1) Eosinophils # (Auto) 0.0 x10^3/uL (0.0-0.7) Basophils # (Auto) 0.0 x10^3/uL (0.0-0.2) Segmented Neutrophils % 89 % (35-66) Band Neutrophils % 7 % (0-9) Lymphocytes % 1 % (24-48) Monocytes % 3 % (0-10) Toxic Granulation Slight Platelet Estimate Decreased (ADEQUATE) Schistocytes Occ Sodium Level 130 mmol/L (136-145) Potassium Level 4.7 mmol/L (3.5-5.1) Chloride Level 99 mmol/L (98-107) Carbon Dioxide Level 22 mmol/L (21-32) Anion Gap 9 (6-14) Blood Urea Nitrogen 11 mg/dL (7-20) Creatinine 0.7 mg/dL (0.6-1.0) Estimated GFR (Cockcroft-Gault) 87.5 Glucose Level 236 mg/dL (70-99) Lactic Acid Level 3.6 mmol/L (0.4-2.0) Calcium Level 8.7 mg/dL (8.5-10.1) Total Bilirubin 7.7 mg/dL (0.2-1.0) Direct Bilirubin 5.3 mg/dL (0.0-0.2) Aspartate Amino Transf (AST/SGOT) 387 U/L (15-37) Alanine Aminotransferase (ALT/SGPT) 180 U/L (14-59) Alkaline Phosphatase 516 U/L (46-116) Troponin I Quantitative 0.148 ng/mL (0.000-0.055) [id number]-Type Natriuretic Peptide 4304 pg/mL (0-124) Total Protein 6.5 g/dL (6.4-8.2) Albumin 2.7 g/dL (3.4-5.0) Lipase 106 U/L (73-393) Ammonia 45 mcmol/L (11-34) SARS-CoV-2 RNA (SANTY) Negative (Negative) O2 Saturation 92 % (92-99) Arterial Blood pH 7.47 (7.35-7.45) Arterial Blood pCO2 at Patient Temp 29 mmHg (35-46) Arterial Blood pO2 at Patient Temp 64 mmHg (75-108) Arterial Blood HCO3 21 mmol/L (21-28) Arterial Blood Base Excess -2 mmol/L (-3-3) Oxyhemoglobin 91.0 % Methemoglobin 0.5 % (0.0-1.9) Carbon Monoxide, Quantitative 0.5 % (0.0-1.9) FiO2 100 nrm Test 02/23/21 18:10 02/23/21 18:35 02/23/21 22:32 02/24/21 03:15 SARS-CoV-2 Antigen (Rapid) Negative (NEGATIVE) Lactic Acid Level 4.5 mmol/L (0.4-2.0) 3.5 mmol/L (0.4-2.0) 2.2 mmol/L (0.4-2.0) White Blood Count 7.3 x10^3/uL (4.0-11.0) Red Blood Count 4.04 x10^6/uL (3.50-5.40) Hemoglobin 12.5 g/dL (12.0-15.5) Hematocrit 37.7 % (36.0-47.0) Mean Corpuscular Volume 93 fL (79-100) Mean Corpuscular Hemoglobin 31 pg (25-35) Mean Corpuscular Hemoglobin Concent 33 g/dL (31-37) Red Cell Distribution Width 18.3 % (11.5-14.5) Platelet Count 20 x10^3/uL (140-400) Neutrophils (%) (Auto) 86 % (31-73) Lymphocytes (%) (Auto) 9 % (24-48) Monocytes (%) (Auto) 5 % (0-9) Eosinophils (%) (Auto) 0 % (0-3) Basophils (%) (Auto) 1 % (0-3) Neutrophils # (Auto) 6.2 x10^3/uL (1.8-7.7) Lymphocytes # (Auto) 0.7 x10^3/uL (1.0-4.8) Monocytes # (Auto) 0.3 x10^3/uL (0.0-1.1) Eosinophils # (Auto) 0.0 x10^3/uL (0.0-0.7) Basophils # (Auto) 0.0 x10^3/uL (0.0-0.2) Sodium Level 138 mmol/L (136-145) Potassium Level 4.6 mmol/L (3.5-5.1) Chloride Level 105 mmol/L (98-107) Carbon Dioxide Level 25 mmol/L (21-32) Anion Gap 8 (6-14) Blood Urea Nitrogen 12 mg/dL (7-20) Creatinine 0.6 mg/dL (0.6-1.0) Estimated GFR (Cockcroft-Gault) 104.6 Glucose Level 150 mg/dL (70-99) Calcium Level 7.9 mg/dL (8.5-10.1) Phosphorus Level 3.1 mg/dL (2.6-4.7) Magnesium Level 2.0 mg/dL (1.8-2.4) Total Bilirubin 7.5 mg/dL (0.2-1.0) Direct Bilirubin 4.9 mg/dL (0.0-0.2) Aspartate Amino Transf (AST/SGOT) 321 U/L (15-37) Alanine Aminotransferase (ALT/SGPT) 154 U/L (14-59) Alkaline Phosphatase 406 U/L (46-116) Total Protein 5.4 g/dL (6.4-8.2) Albumin 2.2 g/dL (3.4-5.0) Procalcitonin 0.78 ng/mL (0.00-0.10) Test 02/24/21 05:35 Prothrombin Time 16.0 SEC (11.7-14.0) Prothromb Time International Ratio 1.3 (0.8-1.1) Physical Exam HEENT: Neck Supple W Full Motion Chest: Symmetric LUNGS: Other (diminished) Heart: RRR (SR/ST) Abdomen: Soft N/T Extremities: No Calf Tenderness, Other (1+ bilateral Le pitting edema) Neurology: alert, oriented, follow commands Other Exams Jaundiced Assessment Assessment 1. Acute hypoxic respiratory failure: multifactorial as noted below. SOA better with NRB 2. Mild to moderate pericardial effusion: no hemodynamic compromise. No chest pain 3. Increasing right pleural effusion 4. Metastatic breast CA with metastasis to liver and likely tumor infiltration to cardiopulmonary region with malignant effusion 5. Severe pulmonary HTN/cor pulmonale: due to CA 6. Liver failure with jaundice and hyperammonemia 7. Lactic acidosis 8. Mild troponin elevation: suspect demand mediated type 2 with above culprits. 9. Thrombocytopenia: PLT down to 20 10. Possible pneumonia Recommendations 1. RV significantly dilated, high risk for arrhythmias. Presently her BP is marginal not requiring yet of pressor support. Continued aggressive measures per pt/spouse. If her effusions continues to progressed she may need a pericardial window and another thoracentesis. Recommend transfer to tertiary hospital such as [facility]. Discussed with hemonc and PCP and primary retirement plan counselor 2. Empiric antibiotics ongoing Justicifation of Admission Dx: Justifications for Admission: Justification of Admission Dx: Yes RICKEY RIOJAS SALES FLOOR MANAGER Feb 24, 2021 11:34
--- NOTE | 2021-02-24 11:36 | NUR ---
SS following up with discharge planning. SS received phone contact from Pa in the transfer center stating that is denying pt for transfer. They stated that pt is too unstable for transfer and a window. recommended that physicians discuss hospice with pt and family. RNKanwal, notified. SS will await further recommendations.
--- NOTE | 2021-02-24 12:55 | CONS ---
DATE OF CONSULTATION: 02/24/2021 REQUESTING PHYSICIAN: Dr. Valencia. REASON FOR CONSULTATION: Possible sepsis, lactic acidosis. HISTORY OF PRESENT ILLNESS: This is a 55-year-old female who has widely metastatic breast cancer who is on palliative chemotherapy, although yesterday she was given Benadryl, dexamethasone, Pepcid, ____ medication and she was looking bad, sleepy and hypoxic, hence she did not receive any chemotherapy and the patient was asked to come in. The patient has been hypoxic, requiring Ventimask oxygen. The patient denied any fever, denied any nausea or vomiting. The patient had recent admission and at that time, she did require oxygen to go home just a week ago. The patient is awake, does have shortness of breath and slight abdominal pain, but otherwise she says she is feeling okay. Her lactic acid was up to 4.5. The patient denies any headache. Denies any nausea, vomiting. Denies any chest pain, denies any urinary symptoms or bowel symptoms right now. PAST MEDICAL HISTORY: Positive for widely metastatic breast cancer with mets to the pulmonary bone, liver, malignant pleural effusion and pericardial effusion. The patient has gastroesophageal reflux disease, peptic ulcer disease, and anxiety disorder. SOCIAL HISTORY: Negative for smoking, alcohol or illicit drug use. ALLERGIES: No known drug allergies. CURRENT MEDICATIONS: The patient is on Zosyn. REVIEW OF SYSTEMS: As per HPI, all other systems reviewed and are negative. PHYSICAL EXAMINATION: GENERAL: Alert, oriented female who is on Ventimask. VITAL SIGNS: Temperature 97.6, pulse 104, respirations 22, blood pressure 89/69. She is on 15 liters of oxygen. HEENT: Both pupils are round and reacting. No conjunctival lesion, no lesion in the mouth. NECK: Supple, no JVP, no lymphadenopathy. LUNGS: Clear. HEART: S1, S2 regular. ABDOMEN: Soft, nontender, no organomegaly. EXTREMITIES: No edema or cyanosis. SKIN: Unremarkable. NEUROLOGIC: The patient is alert, awake and appropriate. No focal neurologic deficit. LABORATORY DATA: White count is 7.3, hemoglobin 12.5, platelets at 20,000. Her lactic acid was 4.5, which has improved to 2.2. BUN and creatinine is normal. LFT showed AST of 321, ALT of 154, alkaline phosphatase is 406, total bilirubin 7.5. COVID negative, done yesterday. CT of the abdomen and pelvis showed mediastinal bilateral hilar adenopathy, effusion, moderate pericardial effusion, moderate pleural effusion, right-sided, few ground-glass nodules in the bilateral lower lungs, left hepatic lobe heterogenicity, mildly hypodense, mild wall thickening of the descending and proximal and mid transverse colon, and moderate free pelvic fluid. IMPRESSION: 1. Lactic acidosis, possible sepsis, although it may have been related to the tumor burden and liver disease and work of breathing. 2. Hypoxic respiratory failure. 3. Widely metastatic breast cancer. 4. Elevated liver function tests. 5. Thrombocytopenia. RECOMMEND: Continue Zosyn for the time being, although probably, she does not have any infection. Blood cultures have been done. If remains negative, then pretty soon to be able to discontinue antibiotics. Overall, prognosis is poor. Thank you very much, Dr. Valencia, for giving me the opportunity to participate in this patient's care. MAICO PEREZ MD DR: MARTHA/lee JOB#: [id number] / [id number]
--- NOTE | 2021-02-24 14:34 | NUR ---
SS following up with discharge planning. SS received notification that request for transfer was made to [facility] transfer center, ; fax [phone], for transfer to [facility]. Images were clouded. SS faxed records to [facility] transfer center as requested. SS contacted [facility] transfer center and was notified that they are awaiting facility approval at this time. SS will continue to follow for discharge planning.
--- NOTE | 2021-02-24 15:04 | CONS ---
DATE OF CONSULTATION: 02/24/2021 ATTENDING PHYSICIAN: Franki Glaser MD REASON FOR CONSULTATION: The patient is seen in Pulmonary consultation at the request of Dr. Glaser for acute hypoxemic respiratory failure, requiring BiPAP. Currently on nasal cannula and 100% FiO2. HISTORY OF PRESENT ILLNESS: The patient is a 55-year-old pleasant female with a history of breast cancer post-mastectomy in 2018. The patient had evidence of recurrent disease. She received chemoradiation on 02/05/2019. She was being followed by Hematology/Oncology. She received chemotherapy yesterday. She became increasingly more short of breath. She became jaundiced. She was seen in the Emergency Department for hypoxemia. She had an arterial blood gas revealing a pH of 7.47, PaCO2 of 29, PaO2 of 64. She had recurrent pleural effusion. She was actually hospitalized and was discharged home on 02/19/2021. She was hospitalized at that time, underwent thoracentesis. Thoracentesis revealed malignant cells. The patient also had a right heart catheterization revealing marked elevation in pulmonary hypertension. This was felt to be primary pulmonary hypertension. The patient is currently in the intensive care unit. She is very dyspneic. She appears to be critically ill. Her white count was 7.3, platelet count is low. Arterial blood gases indicated above. Serology for COVID-19 was negative. Electrolytes were noted. Bilirubin, AST and ALT are elevated. Procalcitonin was 0.78. She has been seen by Infectious Disease Service and is currently on Zosyn. She is receiving DVT prophylaxis. I reviewed her imaging studies including CT chest, which revealed increasing pleural fluid. She had an unchanged moderate pericardial effusion. She had mediastinal with hilar adenopathy, ground glass opacities. PAST MEDICAL HISTORY: As indicated above; history of breast cancer diagnosed in 2018, now with recurrent disease. SOCIAL HISTORY: She has never smoked. ALLERGIES: No known drug allergies. REVIEW OF SYSTEMS: As indicated above, otherwise other systems could not be adequately reviewed. The patient is significantly short of air. CURRENT MEDICATIONS: List was reviewed. PHYSICAL EXAMINATION: GENERAL: The patient appears to be acutely and chronically ill. She has jaundice. She is dyspneic. She is currently requiring 15 liters per nonrebreather, along with nasal cannula. She is intolerant to BiPAP. VITAL SIGNS: Her blood pressure is low at 77/64. She is tachycardic. HEENT: Eyes: The sclerae were icteric. NECK: Jugular venous distention was not elevated. CHEST: Full expansion. LUNGS: Diminished breath sounds on the right. CARDIOVASCULAR: Regular rate and rhythm with S1, S2, no S3. ABDOMEN: Soft. EXTREMITIES: Minimal edema. NEUROLOGICAL: The patient was awake, alert, following commands. A detailed neuro exam was not performed. LABORATORY DATA: Reviewed as indicated above. LFTs are elevated. Platelet count is low. Arterial blood gases indicated above. RADIOLOGICAL DATA: CT as indicated above. IMPRESSION: 1. Acute hypoxemic respiratory failure, multifactorial. Secondary to recurrent malignant effusion, pericardial effusion along with possible pneumonia. 2. Stage IV breast cancer. 3. Metabolic encephalopathy, improved. 4. History of severe pulmonary hypertension, presumptive to be primary. 5. Hyperbilirubinemia. 6. Elevated troponin. 7. Thrombocytopenia. 8. Lactic acidemia, suspect secondary to increased work of breathing. 9. Hypotension, possibly related to pericardial effusion, volume deficit or sepsis. 10. CT chest revealing no evidence of pulmonary emboli. PLAN: 1. We will continue current support with oxygen supplementation. 2. IV antibiotics. 3. We will discuss case with interventional radiologist, possibly proceed with drainage of pleural fluid, possibly placement of PleurX catheter. 4. Case was discussed with Cardiology, we will defer any further interventions regarding the pericardial effusion to Cardiology. 5. Appreciate Dr. Vásquez's input. I do appreciate the privilege in sharing in the patient's care. Total cumulative critical care time of 60 minutes, reviewing the old documentation, the current documentation, interviewing and examining the patient, reviewing labs, chest x-ray, CT chest, discussion with Cardiology and Dr. Valencia along with formulating a plan. RAZIA LIMA MD DR: BALJEET/lee JOB#: [id number] / [id number]
[2021-02-24] MEDS: ACETAMINOPHEN 325 MG TABLET. PO PRN (17:13)
--- NOTE | 2021-02-24 17:24 | CARD ---
MR#: [id number] Date of Study: 02/23/2021 Ordering Physician: CESILIA SOLOMON, Referring Physician: CESILIA SOLOMON, Tech: Yue Pack RDCS APPROVED REPORT EXAM: LIMITED Two-dimensional echocardiogram Other Information Quality : Good INDICATION Pericardial Effusion Follow up from echo done 02/14/21 2D DIMENSIONS RVDd4.2 (2.9-3.5cm) Tricuspid Valve TR P. [id number] TR Peak [id number] LEFT VENTRICLE Limited echocardiogram to evaluate pericardial effusion. The left ventricle is hyperdynamic. The Ejec tion Fraction is 65-70%. There is a flattened septum consistent with right ventricle volume and press ure overload. RIGHT VENTRICLE The right ventricle is moderately to severely dilated. Systolic function is moderately reduced. TRICUSPID VALVE Doppler and Color Flow revealed mild to moderate tricuspid regurgitation. There is severe pulmonary h ypertension. The PA pressure was estimated at 74 mmHg. PERICARDIAL EFFUSION There is a moderate circumferential pericardial effusion without acute hemodynamic compromise. Critical Notification Critical Value: No <Conclusion> Limited echocardiogram to evaluate pericardial effusion. The left ventricle is hyperdynamic. The Ejection Fraction is 65-70%. There is a flattened septum consistent with right ventricle volume and pressure overload. The right ventricle is moderately to severely dilated. RV systolic function is moderately reduced. Doppler and Color Flow revealed mild to moderate tricuspid regurgitation. There is severe pulmonary hypertension. The PA pressure was estimated at 74 mmHg. There is a moderate circumferential pericardial effusion without acute hemodynamic compromise. Signed by : Kulwinder Perla MD Electronically Approved : 02/24/2021 17:23:54
[2021-02-24] MEDS ORDERED: HYDROcodone/APAP 5/325MG 1 TAB TABLET PO PRN (20:45)
[2021-02-24] MEDS ORDERED: LACTULOSE 20 GM/30 ML SOLUTION. PO SCH (21:00)
[2021-02-24] MEDS ORDERED: KETOROLAC 15 MG/ML VIAL. IVP PRN (21:15)
--- NOTE | 2021-02-24 23:04 | NUR ---
Upon starting my shift, all paperwork had been completed for transfer and we were to be notified when [facility] had a bed ready for the patient so we could give report. At beginning of shift, I talked to both the son and of the patient and let them know that she had been accepted but that we were waiting for them to notify us of a room number. The son called the nursing dike supervisor 10 minutes after I spoke with him to ask why things were not moving quicker. She called me to ask about the situation and I told her I had just spoken with him and that I would talk to him again. She said she still had not heard anything about a bed being ready. I talked to son again and gave him the same update as before. At 2134 I received a call from Meme, a "close friend" of the patient. She immediately began yelling at me to get a pen and paper and write down a number stating that it was our fault she had not been transferred because a bed had been ready for awhile and we were supposed to call report. I tried to explain that [facility] is supposed to notify us, but she would not even let me finish a sentence. She then threatened that if report was not called in 15 minutes she would "raise hell, and I mean it". I hung up, as her demeanor and threats were very inappropriate. Charge nurse and nursing dike supervisor were notified of this call. Meli, nursing dike supervisor, then called the [facility] transfer service to inquire about a bed being ready. They called back shortly after to let us know that a room had been ready and they apologized for the confusion. JONATHAN Frias, took the bed number and phone number. I called report to KRISTIE Jarquin, after that and then notified [facility] about a transfer request. 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
--- NOTE | 2021-02-24 23:18 | NUR ---
This RN has reviewed and approves of SN charting.
== END 2021-02-24 22:55 | disposition short-term general hospital (02) | DRG 871 ==
LOC: ER 13:54 → 1 WEST ICU 16:16
PROVIDERS: ADMIT Internal Medicine; ATTEND Internal Medicine
DX: A41.9 Sepsis, unspecified organism (principal); G93.41 Metabolic encephalopathy; J96.01 Acute respiratory failure with hypoxia; E43 Unspecified severe protein-calorie malnutrition; C78.7 Secondary malignant neoplasm of liver and intrahepatic bile duct; E72.20 Disorder of urea cycle metabolism, unspecified; E87.1 Hypo-osmolality and hyponatremia; E87.2 Acidosis; I27.0 Primary pulmonary hypertension; C50.919 Malignant neoplasm of unspecified site of unspecified female breast; D69.6 Thrombocytopenia, unspecified; K72.90 Hepatic failure, unspecified without coma; Z20.822 Contact with and (suspected) exposure to COVID-19; Z79.811 Long term (current) use of aromatase inhibitors; Z85.3 Personal history of malignant neoplasm of breast; Z87.11 Personal history of peptic ulcer disease; Z90.13 Acquired absence of bilateral breasts and nipples; Z92.21 Personal history of antineoplastic chemotherapy; Z92.3 Personal history of irradiation; F41.9 Anxiety disorder, unspecified; K21.9 Gastro-esophageal reflux disease without esophagitis; Z68.22 Body mass index [BMI] 22.0-22.9, adult
CPT/HCPCS: 36415; 36600; 71045; 71275; 74177; 76700; 80048; 80076; 82140; 82805; 83605; 83690; 83735; 83880; 84100; 84145; 84484; 85007; 85025; 85610; 87040; 87426; 93005; 93308; 94660; 96361; 96365; C9113; J1650; J1885; J2543; J7040; Q9967; U0003; 99285-25; G0378

== ENCOUNTER → 2021-02-23 | Outpatient (CLI) | payer OTHER, MEDICARE ==
[2021-02-19 14:54] VITALS: BP 81/54
[2021-02-23 09:06] LABS: BASO % 0 % (0-3); EOS % 0 % (0-3); HEMATOCRIT 42.1 % (36.0-47.0); HEMOGLOBIN 13.8 g/dL (12.0-15.5); LYMPH % 15 % (24-48); MEAN CORPUSCULAR HEMOGLOBIN 30 pg (25-35); MEAN CORPUSCULAR HGB CONC 33 g/dL (31-37); MEAN CORPUSCULAR VOLUME 93 fL (79-100); MONO # 0.6 x10^3/uL (0.0-1.1); MONO % 10 % (0-9); NEUT # 4.9 x10^3/uL (1.8-7.7); NEUT % 75 % (31-73); PLATELET COUNT 43 x10^3/uL (140-400); RED BLOOD COUNT 4.55 x10^6/uL (3.50-5.40); RED CELL DISTRIBUTION WIDTH 15.8 % (11.5-14.5); WHITE BLOOD COUNT 6.6 x10^3/uL (4.0-11.0)
[2021-02-23 09:15] LABS: CALCIUM 8.5 mg/dL (8.5-10.1); CREATININE 0.6 mg/dL (0.6-1.0); GFR 104.6; POTASSIUM 4.3 mmol/L (3.5-5.1)
[2021-02-23 09:21] LABS: ALBUMIN 2.5 g/dL (3.4-5.0); ALBUMIN/GLOBULIN RATIO 0.7 (1.0-1.7); TOTAL BILIRUBIN 6.5 mg/dL (0.2-1.0); TOTAL PROTEIN 6.3 g/dL (6.4-8.2)
[2021-02-23 11:05] LABS: PLT ESTIMATE DECREASED (ADEQUATE)
[2021-02-23 13:51] LABS: CALCIUM 8.3 mg/dL (8.5-10.1); CREATININE 0.6 mg/dL (0.6-1.0); GFR 104.6; POTASSIUM 4.6 mmol/L (3.5-5.1)
[2021-02-23 13:57] LABS: ALBUMIN 2.5 g/dL (3.4-5.0); ALBUMIN/GLOBULIN RATIO 0.6 (1.0-1.7); TOTAL BILIRUBIN 6.9 mg/dL (0.2-1.0); TOTAL PROTEIN 6.4 g/dL (6.4-8.2)
== END ==
LOC: ONCLAB 08:29
PROVIDERS: ATTEND Internal Medicine Hematology & Oncology
DX: C50.311 Malignant neoplasm of lower-inner quadrant of right female breast (principal)
CPT/HCPCS: 36415; 80053; 83615; 85025